=== PATIENT | female | born 1965 | race Caucasian/White ===

== ENCOUNTER 2016-03-30 17:41 | Observation (INO) | payer MEDICARE, MEDICAID ==
[~2016-03-30] VITALS: Ht 162.6 cm; Wt 74.4 kg
[~2016-03-30 17:41] MED LIST: ACYCLOVIR800 MG PO; ALPRAZOLAM1 MG PO; APAP/HYDROCODON1 TA9 PO; ATIVAN1 M1 PO; AUGMENTIN 875 M1 TAB PO; AUGMENTIN 875-1 EACH PO; AZO-STANDARD95 MG PO; BACTRIM DS 8001 TAB PO; BACTROBAN2% TP; BISOPROLOL 5MG T5 MG PO; CEFPODOXIME PR200 M1 PO; CIPRO 500MG TA500 MG PO; CIPROFLOXACIN500 MG PO; DILAUDID2 M1 PO; EFFEXOR XR 75MG75 MG PO; ELMIRON 100MG100 M1 OR; ELMIRON100 MG PO; FEMRING0.05 MG/24 VG; FEMRING0.1 MG/24 VG; FLAGYL500 M1 PO; FLEXERIL10 MG PO; GRISEOFULVIN500 MG PO; HYDROCODONE-APA1 TA1 PO; HYDROCODONE-APA1 TA2 PO; HYDROCODONE1 TABLET PO; IBUPROFEN400 MG PO; IBUPROFEN600 MG PO; IMITREX100 MG PO; KEFLEX 500MG.500 MG PO; LORTAB 5/500 501 TAB PO; LORTAB 500 MG-11 TAB PO; LORTAB 500 MG-71 TAB PO; LYRICA75 MG PO; MAGNESIUM OXID400 M1 PO; MECLIZINE25 MG PO; NAPROSYN 500MG500 MG PO; NEXIUM40 MG PO; NICODERM C21 MG/24 H TD; NICOTINE PATCH;21 MG TD; NITROGLYCERIN0.4 MG SL; NORCO 325 MG-101 TAB PO; OXYBUTYNIN CHLO10 MG PO; PERCOCET 10 MG1 EACH PO; PERCOCET 325 MG1 TA3 PO; PERCOCET 325 MG1 TA4 PO; PERCOCET 5/3251 EACH PO; PERCOCET1 TA1 PO; PERCOCET1 TAB PO; PHENERGAN 25MG.25 M1 PO; PHENERGAN 25MG.25 MG PR; PHENERGAN25 M3 PO; PREDNISONE 20MG20 MG PO; PYRIDIUM 200MG200 MG PO; TAMIFLU 75MG CA75 MG PO; TESSALON PERLE100 MG PO; TRAMADOL 50MG T50 M1 PO; ULTRACET 325 MG1 TAB PO; VENLAFAXINE H37.5 MG PO; VENLAFAXINE HY PO; VICODIN 5/500 T1 TAB PO; VOLTAREN75 MG PO; XANAX 0.5MG TA0.5 MG NG; XANAX 1MG TABLET1 MG PO; ZITHROMAX Z PA250 MG PO; ZITHROMAX Z-PA250 M1 PO; ZOFRAN ODT4 MG PO; ZOFRAN ODT8 MG PO; ZOFRAN4 MG PO; ZOLPIDEM 10MG T10 MG PO
[2016-03-30 17:51] VITALS: BP 103/66
[2016-03-30 18:13] LABS: URINE BILIRUBIN - DIPSTICK NEGATIVE (NEG); URINE BLOOD NEGATIVE (NEG)
--- NOTE | 2016-03-30 18:26 | Emergency Room Report ---
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 N Clinical Suspician of Infection? N Mental Status: 1 - Regular (Normal Baseline) Sepsis Risk:Possible Sepsis Risk Have you (or family members/close friends) recently traveled outside the [place]? N If Yes, where/when: Have you had exposure to infectious disease within the past month? N TB? Other? Specify: Source patient, RN notes reviewed, old records Exam Limitations no limitations Comment pt with persistant feeling of nausea and dec po intake with freq and lower abd pain with no rash and no diarrhea - pt has failed op treatment with abx and culture last time was nondiagnostic Cardiac Chest Pain Chest pain indicative of cardiac No Timing/Duration this evening Severity moderate ALLERGIES Coded Allergies: Tetanus Vaccines and Toxoid (TETANUS VACCINES & TOXOID) (Severe, 01/25/16) butorphanol (Severe, 01/25/16) tolterodine (Severe, 01/25/16) amitriptyline (Mild, 01/25/16) gabapentin (Mild, 01/25/16) prochlorperazine (Mild, 01/25/16) Home Medications Active Scripts PROMETHAZINE HCL (Phenergan 25MG Tab (Geq)) 25 MG PO Q6HP PRN N/V #20 TAB Ref 1 Prov: 12/30/15 OXYCODONE HCL/ACETAMINOPHEN (Percocet 7.5-325 MG Tablet) 1 TAB PO Q6HP PRN pain #12 TAB Prov: 01/25/16 Metronidazole (Flagyl) 500 MG PO TID #15 TAB Prov: 03/28/16 Cefpodoxime Proxetil 200 MG PO BID #20 TAB Prov: 03/26/16 Ondansetron (Zofran 4MG Odt) 4 MG PO Q8HP PRN NAUSEA AND VOMITING #10 ODT Prov: 03/26/16 Reported Medications VENLAFAXINE HCL (Venlafaxine Hydrochloride) 100 MG PO BID Esomeprazole Magnesium (Nexium 40MG Cap) 40 MG PO DAILY Sumatriptan Succinate (Imitrex) 100 MG PO PRN PRN HEADACHE Estradiol Acetate (Femring) 0.1 MG VG Q3M #1 Pregabalin (Lyrica 75MG) 75 MG PO QHS #30 ALPRAZOLAM (Alprazolam 1MG) 1 MG PO QID Zolpidem Tartrate (Zolpidem 10MG) 10 MG PO QHS #30 Pentosan Polysulfate Sodium (Elmiron 100MG Capsule) 100 MG OR TID #90 History Medical History General CAD? No Angina: Yes [place]: No Hypertension? No Hyperlipidemia? No CHF? No DVT? No PE? No COPD? No Asthma? No Anemia? No GERD? Yes Gastric ulcers? No GI Bleed? No Hernia? Yes Thyroid Problems? No Hypothyroidism? No CVA? No Seizures? No Diabetes? No Renal Insuffiency? No End Stage Renal Disease? No UTI? Yes Stones? Yes BPH? No GB Disease: No Nephritic Syndrome? No Asplenia? No Hepatitis? No Sickle Cell Disease? No Arthritis? No Migraines? Yes Cataracts? No Glaucoma? No MRSA? Yes HIV? No TB? No Anxiety? No Depression? No Cancer? No More? 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 Respiratory denies cough, denies shortness of breath, denies wheezing Cardiovascular denies chest pain, denies palpitations, denies syncope Gastrointestinal denies abdominal pain, denies diarrhea, denies vomiting Genitourinary denies: dysuria, frequency, hesitancy, hematuria. Musculoskeletal denies back pain, denies joint pain, denies joint swelling, denies neck pain Skin denies rash Psychiatric/Neurological denies headache, denies seizure Physical Exam Vital Signs Vital Signs Date Time Temp Pulse Resp B/P Pulse O2 O2 Flow FiO2 Ox Delivery Rate 03/30 1937 20 03/30 1918 83 20 118/55 100 03/30 1751 98.4 92 20 103/66 100 - WBC >12,000 or <4,000 or 10% bands? 2 or more SIRS Criteria Met? B/P:126/79 MAP: Creatinine >2.0? UA output<0.5ml/kg/hr for 2 hrs? Platelet count >100,000? Lactate >2.0mmol/1? INR >1.2 or PTT > than 60 sec? Evidence of Organ Dysfunction? Provider documented clinical suspician of infection? N Sepsis Criteria Count: 2 Sepsis Risk: Possible Sepsis Risk General Appearance no apparent distress Eye Exam - bilateral eye PERRL, bilateral eye EOMI Ear, Nose, Throat normal ENT inspection Neck supple Respiratory Status No: respiratory distress. Lung Sounds bilateral: lungs clear. Cardiovascular regular rate/rhythm, no murmur Peripheral Pulses Pulses normal Yes Gastrointestinal soft, no organomegaly, no pulsatile mass, no guarding, no rebound, tenderness Back bowel/bladder continent, strt leg raising(R)-ABNL Extremities normal inspection Strength 4 Upper Ext (L), 4 Upper Ext (R), 4 Lower Ext (L), 4 Lower Ext (R) Neurologic alert, fisher troll line II-XII nml as tested, no motor/sensory deficits Reflexes Reflexes normal Yes Mental status normal mood/affect Skin no rash cons.w/shingles Medical Decision Making LABS/Meds/Orders Pt receiving controlled substance in ED? No Results/Orders Laboratory Tests 03/30/161904: Lactic Acid 0.3 L 03/30/161904: Sodium 140, Potassium 3.7, Chloride 104, Carbon Dioxide 29, BUN 11, Creatinine 0.9, Estimated Creat Clear 82, Estimated GFR (MDRD) 66, Glucose 93, Calcium 9.0, Total Bilirubin 0.1 L, AST 22, ALT 37, Alkaline Phosphatase 90, Total Protein 7.5, Albumin 4.0, Globulin 3.5 H, Albumin/Globulin Ratio 1.1, Amylase 70, Lipase 109, WBC 3.8 L, RBC 4.49, Hgb 13.1, Hct 40.9, MCV 91.2, RDW 15.2, Plt Count 320, MPV 8.1, Gran % 56.3, Gran # 2.2, Lymphocytes % 31.4, Monocytes % 8.4 , Eosinophils % 2.7, Basophils % 1.3, Lymphocytes # 1.2, Monocytes # 0.3, Eosinophils # 0.1, Basophils # 0.1, PUBS MCHC 32.0, ESR Pending, MCH 29.2 03/30/161809: Urine Color YELLOW, Urine Appearance SL CLOUDY, Urine pH 8.0, Ur Specific [place] 1.015, Urine Protein NEGATIVE, Urine Ketones NEGATIVE, Urine Blood NEGATIVE, Urine Nitrate NEGATIVE, Urine Bilirubin NEGATIVE, Urine Urobilinogen 0.2, Ur Leukocyte Esterase 3+ H, Urine WBC 20-50, Ur Squamous Epith Cells 10-20 , Urine Bacteria 3+, Urine Glucose NEGATIVE Current Medication Orders Sig/Kayleigh Start time Last Medication Dose Route Stop Time Status Admin Sodium Chloride 1,000 ML .STK-MED ONE 03/30 1935 DC IV Levofloxacin/Dextrose 150 ML .STK-MED ONE 03/30 1934 DC IV Promethazine HCl 0 .STK-MED ONE 03/30 1934 DCr .ROUTE Sodium Chloride 25 ML .STK-MED ONE 03/30 1934 DC IV Gentamicin Sulfate 0 .STK-MED ONE 03/30 1933 DC .ROUTE Morphine Sulfate 0 .STK-MED ONE 03/30 1933 DCr .ROUTE Sodium Chloride 100 ML .STK-MED ONE 03/30 1933 DC IV Gentamicin Sulfate 400 MG ONCE ONE 03/30 1929 CKDr 03/30 Sodium Chloride 100 ML IV 03/30 Levofloxacin/Dextrose 150 ML ONCE ONE 03/30 1929 r 03/30 IV 03/30 Morphine Sulfate 6 MG ONCE ONE 03/30 1929 DCr 03/30 IV 03/30 Promethazine HCl 12.5 MG ONCE ONE 03/30 1929 DCr 03/30 IV 03/30 Sodium Chloride 1,000 ML .Q4H 03/30 1929 AC 03/30 IV 03/30 Sodium Chloride 10 ML PRN PRN 03/30 1929 AC IV 03/31 1928 Sodium Chloride 25 ML ONCE ONE 03/30 1929 DC 03/30 IV 03/30 Sodium Chloride 10 ML PRN PRN 03/30 190 AC IV 03/31 184 Orders Procedure Date/time Status DIET-NOTHING BY MOUTH 03/31 B Active IV SALINE LOCK 03/30 1847 Active CULTURE, BLOOD 03/30 1847 Active LIPASE 03/30 184 Complete LACTIC ACID 03/30 184 Complete SED RATE 03/30 184 Active COMPLETE METABOLIC PANEL 03/30 1847 Complete CBC WITH AUTO DIFF 03/30 1847 Active AMYLASE 03/30 1847 Complete CULTURE, URINE 03/[address] ABD/PELVIS REQ 03/30 180 Active URINALYSIS/COMPLETE 03/30 1805 Complete XRAY/CT/US XRAY/CT/US CT abdomen, pelvis CT interpretation by discussed w/radiologist Time results known: 1947 CT Results normal/NAD Departure Departure Time of Disposition 1946 Disposition Still a Patient Clinical Impression Primary Impression: UTI (urinary tract infection) Qualifiers: Urinary tract infection type: acute cystitis Hematuria presence: without hematuria Qualified Code: N30.00 - Acute cystitis without hematuria Condition STABLE Referrals Anne PRATT,Jone Lopez (Family) ED Critical Care Critical Care No at 1954
--- NOTE | 2016-03-30 18:37 | RADIOLOGY REPORT PS360 ---
CT ABD PELVIS W/O CONTRAST CLINICAL INDICATION: Abdominal pain, history of kidney stones UTI COMPARISON: 01/25/2016 TECHNIQUE: Axial images obtained with sagittal and coronal reformats. PROCEDURE: Oral Contrast: None IV Contrast: None . FINDINGS: Lung bases are clear. The liver, gallbladder, spleen, adrenal glands, and pancreas are unremarkable. There are nonobstructing right renal calculi. There is distention of the stomach with food debris.. Mild amount retained colonic feces. Unremarkable appendix. No evidence of diverticulitis, intestinal obstruction, or free air. No focal inflammatory change evident. No acute bony anomalies. IMPRESSION: 1. No acute finding. 2. Nonobstructing right renal calculi. 3. Distention of the stomach with undigested food debris
[2016-03-30 19:25] LABS: HEMOGLOBIN 13.1 g/dL (12.2-16.2); LYMPH # 1.2 K/mm3 (0.7-4.5); LYMPH % 31.4 % (10-50.0)
[2016-03-30 22:24] VITALS: BP 132/82
[2016-03-30 23:36] VITALS: BP 125/65
[2016-03-31 04:00] VITALS: BP 140/89
[2016-03-31 06:45] LABS: LYMPH # 1.1 K/mm3 (0.7-4.5)
[2016-03-31 06:57] LABS: HEMOGLOBIN 11.7 g/dL (12.2-16.2)
[2016-03-31 08:47] VITALS: BP 123/72
[2016-03-31 09:18] VITALS: BP 123/72
--- NOTE | 2016-03-31 09:21 | PHARMACY CLINIC NOTE ---
Patient Demographics Patient Demographics Admission date: 03/30/16 Date: 03/31/16 Time: 0921 Allergies Coded Allergies: Tetanus Vaccines and Toxoid (TETANUS VACCINES & TOXOID) (Severe, 01/25/16) butorphanol (Severe, 01/25/16) tolterodine (Severe, 01/25/16) amitriptyline (Mild, 01/25/16) gabapentin (Mild, 01/25/16) prochlorperazine (Mild, 01/25/16) HEIGHT- FT: 5 IN: 4.00 K.447 VTE General Information Labs: Laboratory Tests 03/31 03/30 0633 1905 Hematology Hgb (12.2 - 16.2 g/dL) 11.7 L 13.1 Hct (37.0 - 47.0 %) 36.5 L 40.9 Plt Count (142 - 424 K/mm3) 260 320 Disclaimer The following section includes nursing documentation that has been pulled in for pharmacy review. Patient's VTE score: 2 Patient's VTE Risk: VERY LOW RISK Clinical trial participant? No VTE prophylaxis [id number] VTE prophylaxis ordered? Yes Type of prophylaxis/treatment: NICOLE at 0921
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
--- NOTE | 2016-03-31 13:26 | CONSULT NOTE ---
Pharmacokinetic Consult Date of consult: 03/31/16 Time of consult: 1320 Referring provider: DR. COTTO Reason for consult: GENTAMICIN DOSING AND LEVELS Allergies: Coded Allergies: Tetanus Vaccines and Toxoid (TETANUS VACCINES & TOXOID) (Severe, 01/25/16) butorphanol (Severe, 01/25/16) tolterodine (Severe, 01/25/16) amitriptyline (Mild, 01/25/16) gabapentin (Mild, 01/25/16) prochlorperazine (Mild, 01/25/16) Home Medications: Active Scripts PROMETHAZINE HCL (Phenergan 25MG Tab (Geq)) 25 MG PO Q6HP PRN N/V #20 TAB Ref 1 Prov: 12/30/15 OXYCODONE HCL/ACETAMINOPHEN (Percocet 7.5-325 MG Tablet) 1 TAB PO Q6HP PRN pain #12 TAB Prov: 01/25/16 Metronidazole (Flagyl) 500 MG PO TID #15 TAB Prov: 03/28/16 Cefpodoxime Proxetil 200 MG PO BID #20 TAB Prov: 03/26/16 Ondansetron (Zofran 4MG Odt) 4 MG PO Q8HP PRN NAUSEA AND VOMITING #10 ODT Prov: 03/26/16 Reported Medications VENLAFAXINE HCL (Venlafaxine Hydrochloride) 100 MG PO BID Esomeprazole Magnesium (Nexium 40MG Cap) 40 MG PO DAILY Sumatriptan Succinate (Imitrex) 100 MG PO PRN PRN HEADACHE Estradiol Acetate (Femring) 0.1 MG VG Q3M #1 Pregabalin (Lyrica 75MG) 75 MG PO QHS #30 ALPRAZOLAM (Alprazolam 1MG) 1 MG PO QID Zolpidem Tartrate (Zolpidem 10MG) 10 MG PO QHS #30 Pentosan Polysulfate Sodium (Elmiron 100MG Capsule) 100 MG OR TID #90 Height (feet): 5 Height (inches): 4.00 Medical History: CAD? No Angina: Yes DC: No Hypertension? No Hyperlipidemia? No CHF? No DVT? No PE? No COPD? No Asthma? No Anemia? No GERD? Yes Gastric ulcers? No GI Bleed? No Hernia? Yes Thyroid Problems? No Hypothyroidism? No CVA? No Seizures? No Diabetes? No Renal Insuffiency? No UTI? Yes Stones? Yes BPH? No GB Disease: No Nephritic Syndrome? No Asplenia? No Hepatitis? No Sickle Cell Disease? No Arthritis? No Migraines? Yes Cataracts? No Glaucoma? No MRSA? Yes HIV? No TB? No Anxiety? No Depression? No Cancer? No More? No Labs: Laboratory Tests 03/31/16 1000: Random Gentamicin 0.2 L 03/31/16 0633: Sodium 140, Potassium 4.0, Chloride 108 H, Carbon Dioxide 25, BUN 7, Creatinine 0.9, Estimated Creat Clear 88, Estimated GFR (MDRD) 66, Glucose 92, Calcium 8.6, WBC 3.9 L, RBC 3.97 L, Hgb 11.7 L, Hct 36.5 L, MCV 91.9, RDW 15.3, Plt Count 260, MPV 8.4, Gran % 60.1, Gran # 2.3, Lymphocytes % 29.0, Monocytes % 7.5, Eosinophils % 2.5, Basophils % 0.8, Lymphocytes # 1.1, Monocytes # 0.3, Eosinophils # 0.1, Basophils # 0.0, PUBS MCHC 32.0, MCH 29.4 03/31/16 0105: Random Gentamicin 1.5 L 03/30/161904: Lactic Acid 0.3 L 03/30/161904: Sodium 140, Potassium 3.7, Chloride 104, Carbon Dioxide 29, BUN 11, Creatinine 0.9, Estimated Creat Clear 82, Estimated GFR (MDRD) 66, Glucose 93, Calcium 9.0, Total Bilirubin 0.1 L, AST 22, ALT 37, Alkaline Phosphatase 90, Total Protein 7.5, Albumin 4.0, Globulin 3.5 H, Albumin/Globulin Ratio 1.1, Amylase 70, Lipase 109, WBC 3.8 L, RBC 4.49, Hgb 13.1, Hct 40.9, MCV 91.2, RDW 15.2, Plt Count 320, MPV 8.1, Gran % 56.3, Gran # 2.2, Lymphocytes % 31.4, Monocytes % 8.4 , Eosinophils % 2.7, Basophils % 1.3, Lymphocytes # 1.2, Monocytes # 0.3, Eosinophils # 0.1, Basophils # 0.1, PUBS MCHC 32.0, ESR 16, MCH 29.2 03/30/161809: Urine Color YELLOW, Urine Appearance SL CLOUDY, Urine pH 8.0, Ur Specific [place] 1.015, Urine Protein NEGATIVE, Urine Ketones NEGATIVE, Urine Blood NEGATIVE, Urine Nitrate NEGATIVE, Urine Bilirubin NEGATIVE, Urine Urobilinogen 0.2, Ur Leukocyte Esterase 3+ H, Urine WBC 20-50, Ur Squamous Epith Cells 10-20 , Urine Bacteria 3+, Urine Glucose NEGATIVE Microbiology 03/30 1904 BLOOD: Anaerobic Blood Culture - RECD 03/30 1904 BLOOD: Aerobic Blood Culture - RECD 03/30 1809 URINE CC: Urine Culture - RES Problem List: 1. UTI (urinary tract infection) Plan: BASED ON PATIENT FACTORS, RECOMMENDED PATIENT GET GENTAMICIN 400 MG IV ONCE LAST NIGHT. UNFORTUNATELY, PATIENT ONLY RECEIVED 80 MG. RECOMMEND PATIENT GET GENTAMICIN 440 MG (7 MG/KG/DBW) IV Q24H STARTING TODAY. WILL ORDER 4 AND 12-HOUR POST INFUSION LEVELS. PHARMACY WILL FOLLOW DAILY AND ADJUST APPROPRIATE. at 132
[2016-03-31 16:43] VITALS: BP 131/79
[2016-03-31 19:37] VITALS: BP 127/60
[2016-03-31 19:45] VITALS: BP 127/60
[2016-04-01 04:17] VITALS: BP 129/73
[2016-04-01 07:02] LABS: HEMOGLOBIN 11.7 g/dL (12.2-16.2); LYMPH # 1.4 K/mm3 (0.7-4.5); LYMPH % 34.6 % (10-50.0)
[2016-04-01 07:38] VITALS: BP 124/77
[2016-04-01 08:40] LABS: HIV Screen 4th Generation wRfx Non Reactive (Non Reactive); Rapid Plasma Reagin, Quant Non Reactive (NonRea<1:1)
[2016-04-01 09:23] VITALS: BP 124/77
--- NOTE | 2016-04-01 09:23 | ACUTE CARE PROGRESS NOTE (QUA) ---
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 Trichomonas vaginitis 2. Acute flank pain 3. Pelvic pain Patient condition Stable Plan: order additional tests This inpt stay is expected to cross 2 MNs from start of care Yes Comments: will redo urine culture and ua and awaiting pelvic u/s and test results at 0924
--- NOTE | 2016-04-01 09:23 | ACUTE CARE PROGRESS NOTE (QUA) ---
Progress Notes Subjective Date 04/01/16 Time 0919 Note doing better still with pelvic pain Patient/family reports: pain Nursing reports: no complaints Objective Findings Last VS-Temp:98.1 B/P:124/77 Pulse:76 Resp:18 SaO2:100 ROOM AIR Last weight lbs:164 oz:2 K.447 Method:Bed Scales Exam General appearance: alert, awake Eyes: PERRLA ENT: dry mucous membranes Neck: no JVD Cardiovascular: regular rate & rhythm Respiratory: no respiratory distress ABD: soft, lower abd pain Genitourinary: no hematuria Extremities: moves all Musculoskeletal: equal muscle strength Skin: dry Neuro: alert, hop strainer II-XII nml as tested Reviewed: allergies, medications, vital signs, lab results Assessment/Plan Problem List 1. Trichomonas vaginitis 2. Acute flank pain 3. Pelvic pain Patient condition Stable Plan: order additional tests This inpt stay is expected to cross 2 MNs from start of care Yes Comments: will redo urine culture and ua and awaiting pelvic u/s and test results at 0979
--- NOTE | 2016-04-01 09:42 | RADIOLOGY REPORT PS360 ---
US PELVIS-TRANSVAGINAL ONLY ORDERING PHYSICIAN : Jone Rodríguez MD PATIENT AGE: 50 years GENDER: Female INDICATION: VAGINAL DISCHARGE UTI pelvic pain TECHNIQUE: Transvaginal pelvic ultrasound COMPARISON: None] listed FINDINGS Uterus in both ovaries surgically absent x 14 years. . Vaginal cuff observed unremarkable on submitted images.. Only bowel is seen at midline. IMPRESSION: Uterus and ovaries are surgically removed No additional significant findings the pelvis. Only mild loops encountered. No masses identified
[2016-04-01 09:59] LABS: URINE BILIRUBIN - DIPSTICK NEGATIVE (NEG); URINE BLOOD TRACE-INTACT (NEG)
--- NOTE | 2016-04-01 11:06 | CONSULT NOTE ---
Pharmacokinetic Consult Date of consult: 04/01/16 Time of consult: 1103 Referring provider: DR. COTTO Reason for consult: GENTAMICIN LEVELS Allergies: Coded Allergies: Tetanus Vaccines and Toxoid (TETANUS VACCINES & TOXOID) (Severe, 01/25/16) butorphanol (Severe, 01/25/16) tolterodine (Severe, 01/25/16) amitriptyline (Mild, 01/25/16) gabapentin (Mild, 01/25/16) prochlorperazine (Mild, 01/25/16) Home Medications: Active Scripts PROMETHAZINE HCL (Phenergan 25MG Tab (Geq)) 25 MG PO Q6HP PRN NAUSEA/VOMITING #20 TAB Ref 1 Prov: 12/30/15 OXYCODONE HCL/ACETAMINOPHEN (Percocet 7.5-325 MG Tablet) 1 TAB PO Q6HP PRN PAIN #12 TAB Prov: 01/25/16 Metronidazole (Flagyl) 500 MG PO TID #15 TAB Prov: 03/28/16 Cefpodoxime Proxetil 200 MG PO BID #20 TAB Prov: 03/26/16 Ondansetron (Zofran 4MG Odt) 4 MG PO Q8HP PRN NAUSEA AND VOMITING #10 ODT Prov: 03/26/16 Reported Medications Estradiol Acetate (Femring) 0.1 MG VG Q3M #1 MG VENLAFAXINE HCL (Venlafaxine Hydrochloride) 100 MG PO BID Esomeprazole Magnesium (Nexium 40MG Cap) 40 MG PO DAILY Sumatriptan Succinate (Imitrex) 100 MG PO PRN PRN HEADACHE Pregabalin (Lyrica 75MG) 75 MG PO QHS #30 ALPRAZOLAM (Alprazolam 1MG) 1 MG PO QID Zolpidem Tartrate (Zolpidem 10MG) 10 MG PO QHS #30 Pentosan Polysulfate Sodium (Elmiron 100MG Capsule) 100 MG OR TID #90 Height (feet): 5 Height (inches): 4.00 Medical History: CAD? No Angina: Yes VT: No Hypertension? No Hyperlipidemia? No CHF? No DVT? No PE? No COPD? No Asthma? No Anemia? No GERD? Yes Gastric ulcers? No GI Bleed? No Hernia? Yes Thyroid Problems? No Hypothyroidism? No CVA? No Seizures? No Diabetes? No Renal Insuffiency? No UTI? Yes Stones? Yes BPH? No GB Disease: No Nephritic Syndrome? No Asplenia? No Hepatitis? No Sickle Cell Disease? No Arthritis? No Migraines? Yes Cataracts? No Glaucoma? No MRSA? Yes HIV? No TB? No Anxiety? No Depression? No Cancer? No More? No Labs: Laboratory Tests 04/01/16 0932: Urine Color YELLOW, Urine Appearance CLEAR, Urine pH 5.5, Ur Specific [place] 1.020, Urine Protein NEGATIVE, Urine Ketones NEGATIVE, Urine Blood TRACE-INTACT, Urine Nitrate NEGATIVE, Urine Bilirubin NEGATIVE, Urine Urobilinogen 0.2, Ur Leukocyte Esterase NEGATIVE, Urine RBC OCC, Urine WBC 3-5, Ur Squamous Epith Cells 3-5, Urine Bacteria TRACE, Urine Glucose NEGATIVE 04/01/16 0640: Sodium 141, Potassium 4.2, Chloride 107, Carbon Dioxide 28, BUN 7, Creatinine 1.0, Estimated Creat Clear 79, Estimated GFR (MDRD) 59, Glucose 89, Calcium 8.8, Total Bilirubin 0.2, AST 19, ALT 35, Alkaline Phosphatase 62, Total Protein 6.2 L, Albumin 3.3 L, Globulin 2.9, Albumin/Globulin Ratio 1.1, WBC 3.9 L, RBC 4.11 L, Hgb 11.7 L, Hct 37.2, MCV 90.6, RDW 14.9, Plt Count 245, MPV 8.3, Gran % 55.0, Gran # 2.2, Lymphocytes % 34.6, Monocytes % 6.4, Eosinophils % 3.3, Basophils % 0.7, Lymphocytes # 1.4, Monocytes # 0.3, Eosinophils # 0.1, Basophils # 0.0, PUBS MCHC 31.5 L, MCH 28.5 04/01/16 0315: Random Gentamicin 1.9 L 03/31/16 1915: Random Gentamicin 10.5 H Problem List: 1. UTI (urinary tract infection) Plan: 4-HOUR POST INFUSION: 10.5 MCG/ML CALCULATED PEAK: 19.95 MCG/ML 12-HOUR POST INFUISION: 1.9 MCG/ML CALCULATED TROUGH: 0.15 MCG/ML BASED ON GENTAMICIN LEVELS AND PATIENT FACTORS, RECOMMEND DECREASING DOSE TO GENTAMICIN 380 MG (6 MG/KG/DBW) IV Q24H TO REACH A PEAK CLOSER TO 15.0 MCG/ML. PHARMACY WILL CONTINUE TO MONITOR DAILY AND ADJUST APPROPRIATE. at 2816
[2016-04-01 15:58] VITALS: BP 117/65
[2016-04-01 19:41] VITALS: BP 112/66
[2016-04-01 19:51] VITALS: BP 112/66
[2016-04-02 03:58] VITALS: BP 147/92
[2016-04-02 07:45] VITALS: BP 108/58
[2016-04-02 14:35] LABS: HBsAg Screen Negative (Negative); Hep A Ab, IgM Negative (Negative); Hep B Core Ab, IgM Negative (Negative); Hep C Virus Ab <0.1 (0.0-0.9)
--- NOTE | 2016-04-02 15:42 | ACUTE CARE PROGRESS NOTE (QUA) ---
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 Trichomonas vaginitis 2. Acute flank pain 3. Pelvic pain 4. Abdominal pain Patient condition Improving Plan: continue current care This inpt stay is expected to cross 2 MNs from start of care Yes Comments: will reeval in am at 1549
--- NOTE | 2016-04-02 15:42 | ACUTE CARE PROGRESS NOTE (QUA) ---
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 Trichomonas vaginitis 2. Acute flank pain 3. Pelvic pain 4. Abdominal pain Patient condition Improving Plan: continue current care This inpt stay is expected to cross 2 MNs from start of care Yes Comments: will reeval in am at 154
[2016-04-02 16:30] VITALS: BP 126/70
[2016-04-02 20:00] VITALS: BP 116/73
[2016-04-02 20:50] VITALS: BP 116/73
[2016-04-03 04:29] VITALS: BP 127/77
[2016-04-03 07:35] VITALS: BP 123/67
[2016-04-03 08:51] VITALS: BP 123/67
[2016-04-03 12:08] VITALS: BP 131/72
--- NOTE | 2016-04-03 12:24 | RADIOLOGY REPORT PS360 ---
US RUQ-(ABD LTD)1ORGAN/QUAD/FU ORDERING PHYSICIAN : Jone Rodríguez MD PATIENT AGE: 50 years GENDER: Female INDICATION: upper quad pain Right upper quadrant pain TECHNIQUE: Ultrasound right upper quadrant COMPARISON: CT abdomen pelvis March FINDINGS Pancreas. Unremarkable Head body and medial tail satisfactory Liver. No focal lesion. No bili ductal dilatation. Mild diffuse fatty changes Gallbladder. Moderately distended measuring up to 9.7 cm in length. No gallstones evident. No wall thickening or inflammation. Gallbladder wall upper normal thickness. Only trace sludge and debris are unimpressive and not of significance. Gallbladder. Normal size on recent CT Common duct is normal diameter measuring up to 4 mm at hilum of liver. Right kidney measures 10.2 cm length with no hydronephrosis. No mass lesion. There are some echogenic foci at the lower pole of right kidney which could reflect tiny echogenic stones is noted and better delineated on 03/30/2016 CT abdomen IMPRESSION : 1. Gallbladder. No gallstones. Generous upper normal size gallbladder today measuring 9.7 cm length. No inflammation. No wall thickening 2. Liver. Mild diffuse fatty changes. 3. Right kidney.. No hydronephrosis. There are 2 tiny echogenic foci lower pole may correlate with the tiny calculi seen on recent CT
--- NOTE | 2016-04-03 12:29 | ACUTE CARE PROGRESS NOTE (QUA) ---
Progress Notes Subjective Date 04/03/16 Time 0025 Patient/family reports: feeling better, pain Nursing reports: alert Objective Findings Microbiology 04/02 1513 URINE CC: Urine Culture - RES Vital Signs Date Time Temp Pulse Resp B/P Pulse O2 O2 Flow FiO2 Ox Delivery Rate 04/03 1208 98.3 76 20 131/72 94 ROOM AIR 04/03 1119 20 04/03 0922 20 04/03 0851 98.0 76 20 123/67 94 04/03 0735 98.0 76 20 123/67 94 ROOM AIR 04/03 0509 18 04/03 0429 97.9 87 18 127/77 97 ROOM AIR 04/03 0105 18 04/03 0018 18 04/02 205 18 04/02 205 98.4 74 18 116/73 97 04/02 2000 98.4 74 18 116/73 97 ROOM AIR 04/02 1813 18 04/02 1637 18 04/02 1630 98.0 98 18 126/70 98 ROOM AIR 04/02 1243 18 Current Medications Miscellaneous Information 1 EACH ONCE ONE * Oxycodone/Acetaminophen 0 .STK-MED ONE PO (DCr) Levofloxacin 500 MG 1100 PO Promethazine HCl 0 .STK-MED ONE .ROUTE (DCr) Hydromorphone HCl 0 .STK-MED ONE .ROUTE (DCr) Sodium Chloride 25 ML .STK-MED ONE IV (DC) Ondansetron HCl 0 .STK-MED ONE .ROUTE (DC) Alprazolam 0 .STK-MED ONE .ROUTE (DC) Sodium Chloride 25 ML .STK-MED ONE IV (DC) Promethazine HCl 0 .STK-MED ONE .ROUTE (DCr) Hydromorphone HCl 0 .STK-MED ONE .ROUTE (DCr) Promethazine HCl 0 .STK-MED ONE .ROUTE (DCr) Sodium Chloride 25 ML .STK-MED ONE IV (DC) Hydromorphone HCl 0 .STK-MED ONE .ROUTE (DCr) Oxycodone/Acetaminophen 0 .STK-MED ONE PO (DCr) Ondansetron HCl 0 .STK-MED ONE .ROUTE (DC) Acetaminophen 0 .STK-MED ONE PO (DC) Zolpidem Tartrate 0 .STK-MED ONE PO (DC) Alprazolam 0 .STK-MED ONE .ROUTE (DC) Sodium Chloride 25 ML .STK-MED ONE IV (DC) Promethazine HCl 0 .STK-MED ONE .ROUTE (DCr) Hydromorphone HCl 0 .STK-MED ONE .ROUTE (DCr) Oxycodone/Acetaminophen 0 .STK-MED ONE PO (DCr) Alprazolam 0 .STK-MED ONE .ROUTE (DC) Hydromorphone HCl 0 .STK-MED ONE .ROUTE (DCr) Promethazine HCl 0 .STK-MED ONE .ROUTE (DCr) Sodium Chloride 25 ML .STK-MED ONE IV (DC) Alprazolam 0 .STK-MED ONE .ROUTE (DC) Promethazine HCl 0 .STK-MED ONE .ROUTE (DCr) Hydromorphone HCl 0 .STK-MED ONE .ROUTE (DCr) Sodium Chloride 25 ML .STK-MED ONE IV (DC) Oxycodone/Acetaminophen 1 EACH Q6HP PRN PO (r) Gentamicin Sulfate 380 MG Q24H IV (CKD) Sodium Chloride 100 ML Metronidazole 500 MG TID PO Pantoprazole Sodium 40 MG QHS PO Venlafaxine HCl 75 MG QHS PO Levofloxacin/Dextrose 100 ML 1700 IV (DC) Loratadine 10 MG QAM PO Alprazolam 1 MG QID PO Zolpidem Tartrate 10 MG QHS PO Acetaminophen 650 MG Q4HP PRN PO Hydromorphone HCl 1 MG Q4HP PRN IV Ondansetron HCl 4 MG Q6HP PRN IV Promethazine HCl 25 MG Q4HP PRN IV Sodium Chloride 1,000 ML .Q10H IV Sodium Chloride 25 ML PRN PRN IV Last VS-Temp:98.3 B/P:131/72 Pulse:76 Resp:20 SaO2:94 ROOM AIR Last weight lbs:164 oz:2 K.447 Method:Bed Scales Exam General appearance: normal appearance, alert, no acute distress Eyes: normal exam, PERRLA ENT: normal exam Neck: normal inspection, full range of motion Cardiovascular: normal exam, regular rate & rhythm Respiratory: normal exam, chest non-tender, good air movement, no respiratory distress ABD: normal exam, normal bowel sounds, soft Genitourinary: normal voiding & quantity Extremities: normal exam, warm Musculoskeletal: normal exam Skin: normal exam, intact, normal color Neuro: normal exam, alert, intact, oriented Reviewed: allergies, medications, vital signs, lab results Assessment/Plan Problem List 1. Trichomonas vaginitis 2. Acute flank pain 3. Pelvic pain 4. Abdominal pain Patient condition Stable Plan: order additional tests This inpt stay is expected to cross 2 MNs from start of care Yes Comments: rounded with pat pt c/o rt upper quuad pain - gallbladder us today Antibiotic Stewardship (2) Current Culture Results Microbiology 04/02 1513 URINE CC: Urine Culture - RES 03/31 1000 CERVIX: Wet Prep - CAN Cancelled: DUPLICATE ORDER 03/31 0940 VAGINAL: Wet Prep - COMP 03/30 190 BLOOD: Anaerobic Blood Culture - RES 03/30 190 BLOOD: Aerobic Blood Culture - RES Infxn that will respond? Yes Right drug,dose,and route? Yes More targeted antbx? No How long atbx needed? 7 at 1224
[2016-04-03] MEDS ORDERED: LEVAQUIN500 MG PO (12:51)
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
[2016-04-03 14:51] VITALS: BP 131/72
[2016-04-04 10:37] LABS: Neisseria gonorrhoeae, NAA Negative (Negative)
== END 2016-04-03 14:45 | disposition home or self-care (01) ==
LOC: ER 17:41 → 2ND 19:43 → ER 19:43 → 2ND 21:12
PROVIDERS: Emergency Medicine
DX: N39.0 Urinary tract infection, site not specified (principal); A59.01 Trichomonal vulvovaginitis; R10.9 Unspecified abdominal pain; Z23 Encounter for immunization; Z72.89 Other problems related to lifestyle; Z11.4 Encounter for screening for human immunodeficiency virus [HIV]; R10.2 Pelvic and perineal pain
CPT/HCPCS: G0009; G0378; G0432; J2405

== ENCOUNTER → 2016-08-02 | Outpatient (CLI) | payer MEDICARE, MEDICAID ==
[~2016-08-02] MED LIST changes: +ALPRAZOLAM0.5 M3 PO; +ALPRAZOLAM0.5 MG PO; -ALPRAZOLAM1 MG PO; +ARTHRITIS PAIN650 M1 PO; +CYCLOBENZAPRINE10 M1 PO; -ELMIRON 100MG100 M1 OR; +ELMIRON 100MG100 M1 PO; +HYDROCODONE BI118 ML PO; +LEVAQUIN500 MG PO; +LORTAB 7.5/3251 TAB PO; +VENLAFAXINE HCL50 MG PO; +ZOFRAN 8MG TABLE8 MG PO; +ZYRTEC10 M2 PO
[2016-08-02 16:00] LABS: AMPHETAMINES/METAMPHETAMINES NEGATIVE ng/mL (<1000)
== END ==
LOC: LAB 13:48
PROVIDERS: Emergency Medicine
DX: Z79.899 Other long term (current) drug therapy (principal)

== ENCOUNTER → 2016-10-27 | Outpatient (CLI) | payer MEDICARE ==
[~2016-10-27] MED LIST changes: +CIPROFLOXACIN500 M2 PO; +PYRIDIUM200 M2 PO; +TRANSDERM TD
[2016-10-27 14:32] LABS: AMPHETAMINES/METAMPHETAMINES NEGATIVE ng/mL (<1000)
== END ==
LOC: LAB 13:44
PROVIDERS: Emergency Medicine
DX: Z79.899 Other long term (current) drug therapy (principal)

== ENCOUNTER → 2016-11-29 | Outpatient (CLI) | payer MEDICARE, MEDICAID ==
--- NOTE | 2016-12-04 07:21 | RADIOLOGY REPORT PS360 ---
MRI-UP EXT ANY JNT W/O-RT MRI RIGHT SHOULDER Right shoulder pain 1 month weakness limited range of motion HISTORY: RIGHT SHOULER PAIN Patient Age: 51 years: Female Ordering Physician: BEV MAURER MD TECHNIQUE: Multiplanar multisequence imaging 1.5 TeslaTMRI COMPARISON : 11/23/2016 right shoulder 3 views FINDINGS . Slight increased fluid seen along the biceps tendon sheath, inferior to the bicipital groove. The biceps tendon itself appears intact with no definitive nor prominent tear but the increased signal here is suspect for potential tendinopathy. I do not see a prominent underlying joint effusion to yield this fluid along the biceps tendon sheath. Only borderline-qqant increased joint fluid noted at subcoracoid recess Supraspinatus.q slight increased signal adjacent to its insertion and more medially along its inferior aspect these areas of slight increased signal but are not fluid signal on STIR and thus I tend to favor they're reflect tendinopathy. Less likely undersurface partial tearq . Only slight narrowing of subacromial space measures just over 6 mm beneath the tip of of a moderately large acromion. May contribute to impingement symptoms if present as may be mild AC joint hypertrophy noted below. Mild AC joint hypertrophy joint which yields mild impingement upon the supraspinatus at medial outlet. Subscapularis tendon appears intact. Infraspinatus tendon appears intact. . . Only scant if fluid at subdeltoid subacromial bursa. Nonspecific. Although this can be seen with even a pinhole full-thickness rotator cuff tear it can also be seen in segment of bursitis here. Osseous glenoid intact. There is a Small posterior glenoid labrum which may reflect degeneration. Cannot exclude partial tear.. Anterior inferior labrum intact and best visualized.. [id number] submental foramen at mid aspect anterior labrum I believe accounts for the appearance here. IMPRESSION: 1. Increased fluid along the biceps tendon sheath of could reflect biceps tendinopathy 2. Supraspinatus tendinopathy. Most evident along inferior aspect and adjacent to the attachment. . Possible minor partial tear, mainly involving undersurface.. 3. No definitive full-thickness rotator cuff tear evident... Certainly no prominent RCT with tendon retraction However there is Trace fluid subdeltoid subacromial bursa which could reflect a tiny pinhole tear versus mild bursitis here. 4. Small posterior glenoid labrum. May reflect degeneration or potentially prior injury here
== END ==
LOC: RAD 14:29
DX: M25.511 Pain in right shoulder (principal)

== ENCOUNTER → 2016-12-20 | Outpatient (CLI) | payer MEDICARE, MEDICAID ==
[2016-12-20 15:49] LABS: AMPHETAMINES/METAMPHETAMINES NEGATIVE ng/mL (<1000)
== END ==
LOC: LAB 14:45
PROVIDERS: Emergency Medicine
DX: Z79.899 Other long term (current) drug therapy (principal)

== ENCOUNTER 2017-01-19 20:31 | Observation (INO) | payer MEDICARE, MEDICAID ==
[~2017-01-19] VITALS: Ht 162.6 cm; Wt 78.2 kg
[~2017-01-19 20:31] MED LIST changes: -IBUPROFEN800 MG PO; -NORCO 325 MG-51 TAB PO
[2017-01-19 20:42] VITALS: BP 136/85
--- OUTSIDE RECORDS SUMMARY | 2017-01-19 20:50 | External Medical Summary Rpt | CCD ---
Author Author [employer] Organization [employer] Address Unknown Phone Unavailable Purpose Continuity of Care Document - through 2016
--- OUTSIDE RECORDS SUMMARY | 2017-01-19 20:50 | External Medical Summary Rpt | CCD ---
Author Author , ASAD KAMARA Address Unknown Phone [email or web address] Immunization Name Date Rout CVX Reac Dose Comm Prov Is Faci e tion ent ider Refu lity Give sed n Infl 09-1 Intr 150 0.5 Hist [facility] No [facility] uenz 5-20 amus mL oric ART5 ART5 a 17 cula al 91 91 Quad r Info Inj rmat ion - Sour ce Unsp ecif ied Infl 09-0 Intr 150 0.5 Hist [facility] No [facility] uenz 8-20 amus mL oric ART5 ART5 a 16 cula al 91 91 Quad r Info Inj rmat ion - Sour ce Unsp ecif ied
--- OUTSIDE RECORDS SUMMARY | 2017-01-19 20:50 | External Medical Summary Rpt | CCD ---
Author Author , ASAD Organization ASAD Address Unknown Phone [email or web address] Providers Care Records Management Coordinator Name Role Phone Olvin Austin MD, Unavailable Unavailable Olvin Jose MD, Unavailable Unavailable Socorro Jose MD Purpose Continuity of Care Document - 12-20-2012 through 2016 Problems Code Diagnosis DOS Provider Status 487.1 487.1 FLU W 03-02-2013 [place] RESP [facility] V14.8 V14.8 03-02-2013 [place] HX-DRUG [facility] ALLERGY [facility] Hospital 053.9 053.9 02-14-2013 [place] HERPES [facility] Hospital 079.99 079.99 02-14-2013 [place] VIRAL [facility] INFECTION Hospital NOS 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 Tetanus Toxoid THROAT SWELLS/HIVES Severe Tolterodine QUIROZ, LOSS OF VISION Severe Medications Na ND Rx Da Fi Fi Am Da Di Ph RX Ph St me C No te ll ll ou ys ag ar # ys at rm s nt no ma ic us Or Da si cy ia de te s n re d ON 00 12 0 No DA 64 -2 NS 16 2- Lo ET 08 20 ng RO 02 13 er N 5 HC Ac L ti 4 ve MG /2 ML AL TY 50 12 0 No LE 58 -2 NO 00 2- Lo L 45 20 ng EX 10 13 er -S 3 TR Ac ti 50 ve [address] ET SO 00 12 0 No DI 40 -0 UM 97 6- Lo 98 20 ng CH 30 13 er LO 9 RI Ac DE ti ve 0. 9% SO ROSMERY TI ON Sa 63 12 0 No li 80 -0 ne 70 6- Lo 10 20 ng Fl 07 13 er us 5 h Ac 10 ti ML ve Sy ri ng e AP 00 12 0 No AP 40 -0 /H 60 6- Lo YD 36 20 ng RO 56 13 er CO 2 DO Ac NE ti ve 32 5 MG -5 MG TX 00 12 0 No OM 64 -0 ET 11 6- Lo QUIROZ 49 20 ng ZI 53 13 er NE 5 Ac 25 ti ve MG /M L AM PU L AC 00 12 0 No YC 09 -0 LO 38 6- Lo 94 20 ng R 30 13 er 40 1 0 Ac MG ti ve TA BL ET TX 00 12 0 No ED 05 -0 NI 40 6- Lo SO 01 20 ng NE 82 13 er 0 20 Ac ti MG ve TA BL ET TX 51 12 0 No OM 07 -0 ET 90 6- Lo QUIROZ 89 20 ng ZI 52 13 er NE 0H Ac 25 ti MG ve TA BL ET TA KE AC 00 12 0 No ET 40 -0 AM 60 1- Lo IN 48 20 ng OP 46 13 er HE 2 N- Ac CO ti D ve #3 TA BL ET BU 00 10 0 No TA 60 -1 LB 32 1- Lo -A 54 20 ng CE 42 13 er TA 1 WV Ac N- ti CA ve FF 50 -3 25 -4 0 Vital Signs 03-02-2013 10:00 Name Value Interpretat Reference Comment ion Range Body 99.7 [degF] Temperature BP 69 mm[Hg] Diastolic BP Systolic 112 mm[Hg] Heart 95 /min Rate/Pulse O2% 98 % Respiratory 20 /min Rate 03-02-2013 09:37 Name Value Interpretat Reference Comment ion Range Body 100.1 Temperature [degF] BP 76 mm[Hg] Diastolic BP Systolic 120 mm[Hg] Heart 111 /min Rate/Pulse O2% 99 % Respiratory 20 /min Rate 02-14-2013 22:17 Name Value Interpretat Reference Comment ion Range BP 93 mm[Hg] Diastolic BP Systolic 153 mm[Hg] Heart 78 /min Rate/Pulse O2% 99 % Respiratory 20 /min Rate 02-14-2013 20:54 Name Value Interpretat Reference Comment ion Range BP 106 mm[Hg] Diastolic BP Systolic 159 mm[Hg] Heart 94 /min Rate/Pulse O2% 99 % Respiratory 20 /min Rate 02-09-2013 10:25 Name Value Interpretat Reference Comment ion Range BP 86 mm[Hg] Diastolic BP Systolic 130 mm[Hg] Heart 86 /min Rate/Pulse O2% 98 % Respiratory 20 /min Rate 12-20-2012 13:29 Name Value Interpretat Reference Comment ion Range Body 98.1 [degF] Temperature BP 85 mm[Hg] Diastolic BP Systolic 128 mm[Hg] Heart 69 /min Rate/Pulse O2% 100 % Respiratory 20 /min Rate 12-20-2012 13:15 Name Value Interpretat Reference Comment ion Range BP 81 mm[Hg] Diastolic BP Systolic 112 mm[Hg] Heart 63 /min Rate/Pulse O2% 100 % Respiratory 20 /min Rate Results Labs Lab Lab Date Result Refere Interp Status Commen Order Detail nces retati t Range on Urine 9-analyte drugs of abuse screening (01-19-2017 10:10) Comment: Positive urine drug screen samples are stored for 7 days. Comment: Contact the Lab if confirmation of positives is needed. Urine NEGATIV <1000 complet ampheta 017 E ed mine 10:10 NEGATIV screeni E L ng test ng/mL Urine = <200 complet barbitu 017 NEGATIV ed rates 10:10 E ng/mL measure ment by screen Serum = 200 complet or 017 POSITIV ng/mL ed plasma 10:10 E ng/mL benzodi azepine s measure m Comment: This is an UNCONFIRMED result. This result is for medical Comment: purposes and/or treatment only. Cocaine = <300 complet 017 NEGATIV ed measure 10:10 E ng/g ment (mass/v olume) Methado = <300 complet ne 017 NEGATIV ed measure 10:10 E ng/mL ment (mass/v olume) Opiates = <300 complet 017 POSITIV ed measure 10:10 E ng/mL ment (mass/v olume) Comment: This is an UNCONFIRMED result. This result is for medical Comment: purposes and/or treatment only. Phencyc = <25 complet lidine 017 NEGATIV ed measure 10:10 E ng/mL ment (mass/v olume) 11-hydr NEGATIV <50 complet oxy 017 E ed delta-9 10:10 NEGATIV E L tetrahy ng/mL drocann abinol Drugs identified in Urine by Screen method (01-19-2017 10:10) Ampheta 01-19-2 NEGATIV <1000 complet mine 017 E ed [Presen 10:10 ce] in Urine by Screen method -Hydr NEGATIV <50 complet oxy 017 E ed delta-9 10:10 tetrahy drocann abinol [Presen ce] in Unspeci fied specime n Urine 9-analyte drugs of abuse screening (12-20-2016 10:00) Comment: Positive urine drug screen samples are stored for 7 days. Comment: Contact the Lab if confirmation of positives is needed. Urine NEGATIV <1000 complet ampheta 017 E ed mine 10:00 NEGATIV screeni E L ng test ng/mL Urine = <200 complet barbitu 017 NEGATIV ed rates 10:00 E ng/mL measure ment by screen Serum = 200 complet or 017 POSITIV ng/mL ed plasma 10:00 E ng/mL benzodi azepine s measure m Comment: This is an UNCONFIRMED result. This result is for medical Comment: purposes and/or treatment only. Cocaine = <300 complet 017 NEGATIV ed measure 10:00 E ng/g ment (mass/v olume) Methado = <300 complet ne 017 NEGATIV ed measure 10:00 E ng/mL ment (mass/v olume) Opiates = <300 complet 017 POSITIV ed measure 10:00 E ng/mL ment (mass/v olume) Comment: This is an UNCONFIRMED result. This result is for medical Comment: purposes and/or treatment only. Phencyc = <25 complet lidine 017 NEGATIV ed measure 10:00 E ng/mL ment (mass/v olume) 11-hydr 10-11-2 NEGATIV <50 complet oxy 017 E ed delta-9 10:00 NEGATIV E L tetrahy ng/mL drocann abinol Drugs identified in Urine by Screen method (12-20-2016 10:00) Ampheta 10-11-2 NEGATIV <1000 complet mine 017 E ed [Presen 10:00 ce] in Urine by Screen method 11-Hydr -11-2 NEGATIV <50 complet oxy 017 E ed delta-9 10:00 tetrahy drocann abinol [Presen ce] in Unspeci fied specime n Drugs identified in Urine by Screen method (11-23-2016 10:40) Ampheta -14-2 NEGATIV <1000 complet mine 017 E ed [Presen 10:40 ce] in Urine by Screen method 11-Hydr 11-23-2 NEGATIV <50 complet oxy 017 E ed delta-9 10:40 tetrahy drocann abinol [Presen ce] in Unspeci fied specime n Drugs identified in Urine by Screen method (10-27-2016 10:15) Ampheta 08-18-2 NEGATIV <1000 complet mine 017 E ed [Presen 10:15 ce] in Urine by Screen method 11-Hydr -18-2 POSITIV <50 Abnorma complet oxy 017 E l ed delta-9 10:15 tetrahy drocann abinol [Presen ce] in Unspeci fied specime n Drugs identified in Urine by Screen method (09-29-2016 10:05) Ampheta 07-21-2 NEGATIV <1000 complet mine 017 E ed [Presen 10:05 ce] in Urine by Screen method 11-Hydr 09-29-2 NEGATIV <50 complet oxy 017 E ed delta-9 10:05 tetrahy drocann abinol [Presen ce] in Unspeci fied specime n Urinalysis dipstick W Reflex Microscopic panel in Urine (09-01-2016 21:10) Bacteri TRACE O complet a 017 ed [Presen 21:10 ce] in Urine sedimen t by Light microsc opy Erythro 09-01- TNTC 0 complet cytes 017 ed [Presen 21:10 ce] in Urine sedimen t by Light microsc opy Epithel 09-01-2 OCC 0#/hp complet ial 017 f - ed cells.s 21:10 5#/hp quamous f [Presen ce] in Urine sedimen t by Microsc opy high power field Urinalysis dipstick W Reflex Microscopic panel in Urine (09-01-2016 21:10) Appeara 09-01-2 SL CLEAR complet nce of 017 CLOUDY ed Urine 21:10 Bilirub 09-01-2 NEGATIV NEG complet in 017 E ed [Presen 21:10 ce] in Urine by Test strip Erythro 09-01-2 3+ NEG Abnorma complet cytes 017 l ed [Presen 21:10 ce] in Urine Color 09-01-2 ORANGE YELLOW complet of 017 ed Urine 21:10 Ketones 09-01-2 NEGATIV NEG complet 017 E ed [Presen 21:10 ce] in Urine by Automat ed test strip Mucus 09-01-2 TRACE NEG Abnorma complet [Presen 017 l ed ce] in 21:10 Urine sedimen t by Light microsc opy Nitrite 09-01-2 POSITIV NEG Abnorma complet 017 E l ed [Presen 21:10 ce] in Urine by Test strip Urobili 09-01-2 1.0 NEG complet nogen 017 ed [Presen 21:10 ce] in Urine by Test strip CBC (hemogram) Bld Auto (09-01-2016 06:36) WBC 09-01-2 3.57 3.50-10 complet nRBC 017 10*3/mm .80 ed cor # 06:36 3 Bld RBC # 23-2 3.62 3.89-5. complet Bld 017 10*6/mm 14 ed Auto 06:36 3 Hgb 23-2 10.7 11.5-15 complet Bld-mCn 017 g/dL .5 ed c 06:36 Hct VFr 09-01-2 32.8 % 34.5-44 complet Bld 017 .0 ed Auto 06:36 MCV RBC 23-2 90.6 fL 80.0-99 complet Auto 017 .0 ed 06:36 MCH RBC 23-2 29.6 pg 27.0-31 complet Qn 017 .0 ed Auto 06:36 MCHC 23-2 32.6 32.0-36 complet RBC 017 g/dL .0 ed Auto-mC 06:36 nc RDW RBC 09-01-2 14.2 % 11.3-14 complet 017 .5 ed Auto-Rt 06:36 o RDW RBC 09-01-2 47.2 fl 37.0-54 complet Auto 017 .0 ed 06:36 PMV Bld 09-01-2 8.8 fL 6.0-12. complet Auto 017 0 ed 06:36 Platele 09-01-2 244 150-450 complet t # Bld 017 10*3/mm ed Auto 06:36 3 Bas Metab 2000 Pnl SerPl (09-01-2016 06:36) Comment: [employer] Guidelines Comment: Comment: Stage Description GFR Comment: 1 Normal or High 90+ Comment: 2 Mild decrease 60-89 Comment: 3 Moderate decrease 30-59 Comment: 4 Severe decrease 15-29 Comment: 5 Kidney failure <15 BUN 09-01-2 11 9-23 complet Bld-mCn 017 mg/dL ed c 06:36 Creat 09-01-2 0.80 0.60-1. complet Bld-mCn 017 mg/dL 30 ed c 06:36 Sodium 09-01-2 142 132-146 complet Bld-sCn 017 mmol/L ed c 06:36 Potassi 09-01-2 3.9 3.5-5.5 complet um 017 mmol/L ed Bld-sCn 06:36 c Chlorid 09-01-2 108 99-109 complet e 017 mmol/L ed SerPl-s 06:36 Cnc CO2 09-01-2 26.0 20.0-31 complet SerPl-s 017 mmol/L .0 ed Cnc 06:36 Calcium 09-01-2 9.9 8.7-10. complet 017 mg/dL 4 ed XXX-sCn 06:36 c GFR/BSA 09-01-2 76 >60 complet .pred 017 mL/min/ ed SerPl 06:36 1.73 MDRD-Ar VRat BUN/Cre 09-01-2 13.8 7.0-25. complet at 017 0 ed SerPl 06:36 Anion 23-2 8.0 3.0-11. complet Gap3 017 mmol/L 0 ed SerPl-s 06:36 Cnc Glucose 09-01-2 80 70-100 complet 017 mg/dL ed Bld-mCn 06:36 c Drugs identified in Urine by Screen method (08-30-2016 10:45) Ampheta NEGATIV <1000 complet mine 017 E ed [Presen 10:45 ce] in Urine by Screen method 11-Hydr NEGATIV <50 complet oxy 017 E ed delta-9 10:45 tetrahy drocann abinol [Presen ce] in Unspeci fied specime n Urinalysis dipstick W Reflex Microscopic panel in Urine (08-30-2016 00:07) Bacteri 1+ O complet a 017 ed [Presen 00:07 ce] in Urine sedimen t by Light microsc opy Erythro TNTC 0 complet cytes 017 ed [Presen 00:07 ce] in Urine sedimen t by Light microsc opy Epithel 5-10 0#/hp complet ial 017 f - ed cells.s 00:07 5#/hp quamous f [Presen ce] in Urine sedimen t by Microsc opy high power field Leukocy 3-5 O complet nuno 017 wbc/hpf ed [#/volu 00:07 me] in Urine Urinalysis dipstick W Reflex Microscopic panel in Urine (08-30-2016 00:07) Appeara TURBID CLEAR complet nce of 017 ed Urine 00:07 Bilirub NEGATIV NEG complet in 017 E ed [Presen 00:07 ce] in Urine by Test strip Erythro 3+ NEG Abnorma complet cytes 017 l ed [Presen 00:07 ce] in Urine Color LILLIAN YELLOW complet of 017 ed Urine 00:07 Ketones NEGATIV NEG complet 017 E ed [Presen 00:07 ce] in Urine by Automat ed test strip Mucus NEGATIV NEG complet [Presen 017 E ed ce] in 00:07 Urine sedimen t by Light microsc opy Nitrite NEGATIV NEG complet 017 E ed [Presen 00:07 ce] in Urine by Test strip Urobili 0.2 NEG complet nogen 017 ed [Presen 00:07 ce] in Urine by Test strip Urinalysis dipstick W Reflex Microscopic panel in Urine (08-26-2016 21:25) Amorpho TRACE NONE complet us 017 ed sedimen 21:25 t [Presen ce] in Urine sedimen t by Light microsc opy Urinalysis dipstick W Reflex Microscopic panel in Urine (08-26-2016 21:25) Appeara CLEAR CLEAR complet nce of 017 ed Urine 21:25 Bilirub NEGATIV NEG complet in 017 E ed [Presen 21:25 ce] in Urine by Test strip Erythro NEGATIV NEG complet cytes 017 E ed [Presen 21:25 ce] in Urine Color YELLOW YELLOW complet of 017 ed Urine 21:25 Ketones NEGATIV NEG complet 017 E ed [Presen 21:25 ce] in Urine by Automat ed test strip Mucus NEGATIV NEG complet [Presen 017 E ed ce] in 21:25 Urine sedimen t by Light microsc opy Nitrite NEGATIV NEG complet 017 E ed [Presen 21:25 ce] in Urine by Test strip Urobili 0.2 NEG complet nogen 017 ed [Presen 21:25 ce] in Urine by Test strip Drugs identified in Urine by Screen method (08-02-2016 10:10) Ampheta 08-02-2 NEGATIV <1000 complet mine 017 E ed [Presen 10:10 ce] in Urine by Screen method 11-Hydr 24-2 NEGATIV <50 complet oxy 017 E ed delta-9 10:10 tetrahy drocann abinol [Presen ce] in Unspeci fied specime n Urinalysis dipstick W Reflex Microscopic panel in Urine (07-26-2016 20:47) Bacteri TRACE O complet a 017 ed [Presen 20:47 ce] in Urine sedimen t by Light microsc opy Casts 07-26- OCC NONE complet [Presen 017 ed ce] in 20:47 Urine sedimen t by Light microsc opy Erythro 07-26- 5-10 0 complet cytes 017 ed [Presen 20:47 ce] in Urine sedimen t by Light microsc opy Epithel 07-26- 3-5 0#/hp complet ial 017 f - ed cells.s 20:47 5#/hp quamous f [Presen ce] in Urine sedimen t by Microsc opy high power field Urinalysis dipstick W Reflex Microscopic panel in Urine (07-26-2016 20:47) Appeara CLEAR CLEAR complet nce of 017 ed Urine 20:47 Bilirub NEGATIV NEG complet in 017 E ed [Presen 20:47 ce] in Urine by Test strip Erythro 3+ NEG Abnorma complet cytes 017 l ed [Presen 20:47 ce] in Urine Color YELLOW YELLOW complet of 017 ed Urine 20:47 Ketones NEGATIV NEG complet 017 E ed [Presen 20:47 ce] in Urine by Automat ed test strip Mucus TRACE NEG Abnorma complet [Presen 017 l ed ce] in 20:47 Urine sedimen t by Light microsc opy Nitrite NEGATIV NEG complet 017 E ed [Presen 20:47 ce] in Urine by Test strip Urobili 0.2 NEG complet nogen 017 ed [Presen 20:47 ce] in Urine by Test strip BASIC METABOLIC PANEL (02-14-2013 20:00) Glucose 121 74-106 complet 013 mg/dL ed Bld-mCn 20:00 c BUN 17 7-18 complet Bld-mCn 013 mg/dL ed c 20:00 Creat 1.2 0.6-1.0 complet SerPl-m 013 mg/dL ed Cnc 20:00 Creat 76 50-200 complet Cl 013 ML/MIN ed predict 20:00 ed SerPl C-G-vRa te GFR/BSA 48 59- complet .pred 013 ML/MIN ed SerPl 20:00 Schwart z-vRate Sodium 138 136-145 complet SerPl-s 013 mmoL/L ed Cnc 20:00 Potassi 12-06-2 4.8 3.5-5.1 complet um 013 mmoL/L ed SerPl-s 20:00 Cnc Chlorid 104 98-107 complet e 013 mmoL/L ed SerPl-s 20:00 Cnc CO2 30 21.0-32 complet SerPl-s 013 mmoL/L .0 ed Cnc 20:00 Calcium 8.9 8.5-10. complet 013 mg/dL 1 ed SerPl-m 20:00 Cnc CBC with AUTO DIFF (02-14-2013 20:00) WBC # 7.5 4.8-10. complet Bld 013 K/MM3 8 ed Auto 20:00 RBC # 4.22 4.2-5.4 complet Bld 013 M/mm3 ed Auto 20:00 Hgb 13.4 12.2-16 complet Bld-mCn 013 g/dL .2 ed c 20:00 Hct Fr 38.5 % 37.0-47 complet Bld 013 .0 ed 20:00 MCV RBC 91.2 fl 82.2-97 complet 013 .8 ed 20:00 MCH RBC 31.8 pg 27-31.2 complet Qn 013 ed Auto 20:00 MEAN 34.8 31.8-35 complet CORPUSC 013 g/dl .4 ed ULAR 20:00 HGB CONC RDW RBC 14.8 % 11.5-17 complet Auto 013 .5 ed 20:00 Platele 297 142-424 complet t Bld 013 K/mm3 ed Ql 20:00 Manual MEAN 7.5 fl 7.4-10. complet PLATELE 013 4 ed T 20:00 VOLUME Granulo 84.1 % 37.0-80 complet cytes 013 .0 ed Fr Bld 20:00 Auto LYMPH % 11.7 % 10-50.0 complet 013 ed 20:00 Monocyt 3.2 % 1.7-9.3 complet es Fr 013 ed Bld 20:00 Auto Eosinop 0.8 % 0.1-12. complet hil Fr 013 0 ed Bld 20:00 Auto Basophi 0.2 % 0.1-2.0 complet ls Fr 013 ed Bld 20:00 Auto Granulo 6.3 1.8-7.8 complet cytes # 013 K/mm3 ed Bld 20:00 Auto Lymphoc 0.9 0.7-4.5 complet ytes Fr 013 K/mm3 ed Bld 20:00 Auto Monocyt 0.2 0.1-1.0 complet es # 013 K/mm3 ed Bld 20:00 Auto Eosinop 0.1 0.0-0.4 complet hil # 013 K/mm3 ed Bld 20:00 Auto Basophi 0.0 0-0.2 complet ls # 013 K/MM3 ed Bld 20:00 Auto Encounters Encounter Start End Date Code Location Performer Type Date Emergency ROMEL Austin MD (ER) 3 09:02 3 10:07 [facility] Emergency ROMEL Jose MD (ER) 3 20:03 3 22:28 [facility] Emergency ROMEL Jose MD (ER) 3 10:30 3 10:31 [facility] Emergency ROMEL Jose MD (ER) 3 13:08 3 13:36 [facility]
--- OUTSIDE RECORDS SUMMARY | 2017-01-19 20:50 | External Medical Summary Rpt | CCD ---
Author Author , ASAD KAMARA Address Unknown Phone [email or web address] Immunization Name Date Rout CVX Reac Dose [...]
--- OUTSIDE RECORDS SUMMARY | 2017-01-19 20:50 | External Medical Summary Rpt | CCD ---
Author Author , ASAD Organization ASAD Address Unknown Phone [email or web address] Care Team Providers Care Fuel Buyer Name Role Phone Olvin Austin MD, Unavailable Unavailable Olvin Jose MD, Unavailable Unavailable Socorro Jose MD Purpose Continuity of Care Document - 12-20-2012 through 2016 Problems Code Diagnosis DOS Provider Status 487.1 487.1 FLU W 03-02-2013 [place] RESP [facility] V14.8 V14.8 03-02-2013 [place] HX-DRUG [facility] ALLERGY [facility] Hospital 053.9 053.9 02-14-2013 [place] HERPES [facility] Hospital 079.99 079.99 02-14-2013 [place] VIRAL [facility]FE[facility] Hospital NOS 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, NOT SPCF ACUTE OR CHRONIC N20.0 CALCULUS OF KIDNEY N23 UNSPECIFIED RENAL COLIC N39.0 URINARY TRACT INFECTION, SITE NOT SPECIFIED R10.9 UNSPECIFIED ABDOMINAL PAIN R31.9 HEMATURIA, UNSPECIFIED 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 Allergies, Adverse Reactions, Alerts [...] ti ve 32 5 MG -5 MG VA 00 12 0 No OM 64 -0 ET 11 6- Lo QUIROZ 49 20 ng ZI 53 13 er NE 5 Ac 25 ti ve MG /M L AM PU L AC 00 12 0 No YC 09 -0 LO 38 6- Lo 94 20 ng R 30 13 er 40 1 0 Ac MG ti ve TA BL ET VA 00 12 0 No ED 05 -0 NI 40 6- Lo SO 01 20 ng NE 82 13 er 0 20 Ac ti MG ve TA BL ET VA 51 12 0 No OM 07 -0 [...] ng CE 42 13 er TA 1 ND Ac N- ti CA ve FF 50 [...] Austin MD (ER) 3 09:02 3 10:07 [facility] Emergency ROMEL Jose MD (ER) 3 20:03 3 22:28 [facility] Emergency ROMEL Jose MD (ER) 3 10:30 3 10:31 [facility] Emergency ROMEL Jose MD (ER) 3 13:08 3 13:36 [facility]
--- OUTSIDE RECORDS SUMMARY | 2017-01-19 20:53 | External Medical Summary Rpt ---
Author Author STEFANOPRABHAKAR Leonard, [employer] [employer] Organization [employer] Address Unknown Phone Unavailable Results Drugs identified in Urine by Screen method Observa Value Referen Units Interpr Notes Date tion ce etation Range Positive urine drug screen samples are stored for 7 days. Contact the Lab if confirmation of positives is needed. Ampheta NEGATIV <1000 ng/mL No No Jan 19 mine E informa informa 2017 [Presen tion in tion in 10:10 ce] in source source AM Urine data data by Screen method Barbitura <200 ng/mL No No Jan 19 nuno informati informati 2017 [Mass/vol on in on in 10:10 AM ume] in source source Urine by data data Screen method Benzodiaz 200 ng/mL ng/mL High This is Jan 19 epines an 2016 [Mass/vol UNCONFIRM 10:10 AM ume] in ED Serum or result. Plasma by This Screen result is method for medicalpu rposes and/or treatment only. Cocaine <300 ng/g No No Jan 19 [Mass/vol informati informati 2017 ume] in on in on in 10:10 AM Unspecifi source source ed data data specimen Methadone <300 ng/mL No No Jan 19 informati informati 2016 [Mass/vol on in on in 10:10 AM ume] in source source Unspecifi data data ed specimen Opiates <300 ng/mL High This is Jan 19 [Mass/vol an 2016 ume] in UNCONFIRM 10:10 AM Unspecifi ED ed result. specimen This result is for medicalpu rposes and/or treatment only. Phencycli <25 ng/mL No No Jan 19 dine informati informati 2017 [Mass/vol on in on in 10:10 AM ume] in source source Unspecifi data data ed specimen 11-Hydr NEGATIV <50 ng/mL No No Jan 19 oxy E informa informa 2017 delta-9 tion in tion in 10:10 source source AM tetrahy data data drocann abinol [Presen ce] in Unspeci fied specime n Drugs identified in Urine by Screen method Observa Value Referen Units Interpr Notes Date tion ce etation Range Positive urine drug screen samples are stored for 7 days. Contact the Lab if confirmation of positives is needed. Ampheta NEGATIV <1000 ng/mL No No Dec 20 mine E informa informa 2017 [Presen tion in tion in 10:00 ce] in source source AM Urine data data by Screen method Barbitura <200 ng/mL No No Dec 20 nuno informati informati 2017 [Mass/vol on in on in 10:00 AM ume] in source source Urine by data data Screen method Benzodiaz 200 ng/mL ng/mL High This is Dec 20 epines an 2016 [Mass/vol UNCONFIRM 10:00 AM ume] in ED Serum or result. Plasma by This Screen result is method for medicalpu rposes and/or treatment only. Cocaine <300 ng/g No No Dec 20 [Mass/vol informati informati 2017 ume] in on in on in 10:00 AM Unspecifi source source ed data data specimen Methadone <300 ng/mL No No Dec 20 informati informati 2017 [Mass/vol on in on in 10:00 AM ume] in source source Unspecifi data data ed specimen Opiates <300 ng/mL High This is Dec 20 [Mass/vol an 2017 ume] in UNCONFIRM 10:00 AM Unspecifi ED ed result. specimen This result is for medicalpu rposes and/or treatment only. Phencycli <25 ng/mL No No Dec 20 dine informati informati 2017 [Mass/vol on in on in 10:00 AM ume] in source source Unspecifi data data ed specimen 11-Hydr NEGATIV <50 ng/mL No No Dec 20 oxy E informa informa 2017 delta-9 tion in tion in 10:00 source source AM tetrahy data data drocann abinol [Presen ce] in Unspeci fied specime n Drugs identified in Urine by Screen method Observa Value Referen Units Interpr Notes Date tion ce etation Range Positive urine drug screen samples are stored for 7 days. Contact the Lab if confirmation of positives is needed. Ampheta NEGATIV <1000 ng/mL No No Sep 14 mine E informa informa 2017 [Presen tion in tion in 10:40 ce] in source source AM Urine data data by Screen method Barbitura <200 ng/mL No No Sep 14 nuno informati informati 2017 [Mass/vol on in on in 10:40 AM ume] in source source Urine by data data Screen method Benzodiaz 200 ng/mL ng/mL High This is Sep 14 epines an 2017 [Mass/vol UNCONFIRM 10:40 AM ume] in ED Serum or result. Plasma by This Screen result is method for medicalpu rposes and/or treatment only. Cocaine <300 ng/g No No Sep 14 [Mass/vol informati informati 2016 ume] in on in on in 10:40 AM Unspecifi source source ed data data specimen Methadone <300 ng/mL No No Sep 14 informati informati 2016 [Mass/vol on in on in 10:40 AM ume] in source source Unspecifi data data ed specimen Opiates <300 ng/mL High This is Sep [Mass/vol an 2016 ume] in UNCONFIRM 10:40 AM Unspecifi ED ed result. specimen This result is for medicalpu rposes and/or treatment only. Phencycli <25 ng/mL No No Sep 14 dine informati informati 2016 [Mass/vol on in on in 10:40 AM ume] in source source Unspecifi data data ed specimen 11-Hydr NEGATIV <50 ng/mL No No Sep 14 oxy E informa informa 2017 delta-9 tion in tion in 10:40 source source AM tetrahy data data drocann abinol [Presen ce] in Unspeci fied specime n Drugs identified in Urine by Screen method Observa Value Referen Units Interpr Notes Date tion ce etation Range Positive urine drug screen samples are stored for 7 days. Contact the Lab if confirmation of positives is needed. Ampheta NEGATIV <1000 ng/mL No No Oct 27 mine E informa informa 2016 [Presen tion in tion in 10:15 ce] in source source AM Urine data data by Screen method Barbitura <200 ng/mL No No Oct 18 nuno informati informati 2016 [Mass/vol on in on in 10:15 AM ume] in source source Urine by data data Screen method Benzodiaz 200 ng/mL ng/mL High This is Oct 27 epines an 2016 [Mass/vol UNCONFIRM 10:15 AM ume] in ED Serum or result. Plasma by This Screen result is method for medicalpu rposes and/or treatment only. Cocaine <300 ng/g No No Oct 27 [Mass/vol informati informati 2016 ume] in on in on in 10:15 AM Unspecifi source source ed data data specimen Methadone <300 ng/mL No No Oct 27 informati informati 2016 [Mass/vol on in on in 10:15 AM ume] in source source Unspecifi data data ed specimen Opiates <300 ng/mL High This is Oct 27 [Mass/vol an 2016 ume] in UNCONFIRM 10:15 AM Unspecifi ED ed result. specimen This result is for medicalpu rposes and/or treatment only. Phencycli <25 ng/mL No No Oct 27 dine informati informati 2016 [Mass/vol on in on in 10:15 AM ume] in source source Unspecifi data data ed specimen 11-Hydr POSITIV <50 ng/mL Abnorma This is Oct 27 oxy E l an 2016 delta-9 UNCONFI 10:15 RMED AM tetrahy result. drocann This abinol result [Presen is for ce] in medical Unspeci purpose fied s specime and/or n treatme nt only. Drugs identified in Urine by Screen method Observa Value Referen Units Interpr Notes Date tion ce etation Range Positive urine drug screen samples are stored for 7 days. Contact the Lab if confirmation of positives is needed. Ampheta NEGATIV <1000 ng/mL No No Sep 29 mine E informa informa 2017 [Presen tion in tion in 10:05 ce] in source source AM Urine data data by Screen method Barbitura <200 ng/mL No No Sep 29 nuno informati informati 2016 [Mass/vol on in on in 10:05 AM ume] in source source Urine by data data Screen method Benzodiaz 200 ng/mL ng/mL High This is Sep 29 epines an 2016 [Mass/vol UNCONFIRM 10:05 AM ume] in ED Serum or result. Plasma by This Screen result is method for medicalpu rposes and/or treatment only. Cocaine <300 ng/g No No Sep 29 [Mass/vol informati informati 2016 ume] in on in on in 10:05 AM Unspecifi source source ed data data specimen Methadone <300 ng/mL No No Sep 29 informati informati 2016 [Mass/vol on in on in 10:05 AM ume] in source source Unspecifi data data ed specimen Opiates <300 ng/mL High This is Sep 29 [Mass/vol an 2016 ume] in UNCONFIRM 10:05 AM Unspecifi ED ed result. specimen This result is for medicalpu rposes and/or treatment only. Phencycli <25 ng/mL No No Sep 29 dine informati informati 2016 [Mass/vol on in on in 10:05 AM ume] in source source Unspecifi data data ed specimen 11-Hydr NEGATIV <50 ng/mL No No Sep 29 oxy E informa informa 2017 delta-9 tion in tion in 10:05 source source AM tetrahy data data drocann abinol [Presen ce] in Unspeci fied specime n Basic metabolic panel in Blood Observa Value Referen Units Interpr Notes Date tion ce etation Range Urea 7 - 18 mg/dL Normal No Sep 02 nitrogen informati 2016 6:35 [Mass/vol on in AM ume] in source Serum or data Plasma Calcium 8.5 - mg/dL Normal No Sep 02 [Mass/vol 10.1 informati 2017 6:35 ume] in on in AM Serum or source Plasma data Chloride 98 - 107 mmoL/L Normal No Sep 02 [Moles/vo informati 2016 6:35 lume] in on in AM Serum or source Plasma data Carbon 21.0 - mmoL/L Normal No Sep 02 dioxide, 32.0 informati 2017 6:35 total on in AM [Moles/vo source lume] in data Serum or Plasma Creatinin 0.55 - mg/dL Normal No Sep 02 e 1.02 informati 2017 6:35 [Mass/vol on in AM ume] in source Serum or data Plasma Creatinin 50 - 200 ML/MIN Normal No Sep 02 e renal informati 2017 6:35 clearance on in AM source predicted data by Cockcroft -Gault formula Estimated 59- ML/MIN No REFERENCE Sep 02 informati RANGE: 2017 6:35 glomerula on in >60 AM r source ML/MIN/1. filtratio data 73 SQUARE n rate METERSIf (GF this patient is -A merican, then multiply theresult by 1.210. Glucose 74 - 106 mg/dL Normal No Sep 02 [Mass/vol informati 2016 6:35 ume] in on in AM Serum or source Plasma data Potassium 3.5 - 5.1 mmoL/L Normal No Sep 02 informati 2016 6:35 [Moles/vo on in AM lume] in source Serum or data Plasma Sodium 136 - 145 mmoL/L Normal No Sep 02 [Moles/vo informati 2016 6:35 lume] in on in AM Serum or source Plasma data CBC W Auto Differential panel in Blood Observa Value Referen Units Interpr Notes Date tion ce etation Range Basophils 0 - 0.2 K/MM3 Normal No Sep 02 informati 2016 6:35 [#/volume on in AM ] in source Blood by data Automated count Basophils 0.1 - 2.0 % Normal No Sep 02 / informati 2017 6:35 leukocyte on in AM s in source Blood by data Automated count Eosinophi 0.0 - 0.4 K/mm3 Normal No Sep 02 ls informati 2016 6:35 [#/volume on in AM ] in source Blood by data Automated count Eosinophi 0.1 - % Normal No Sep 02 ls/100 12.0 informati 2017 6:35 leukocyte on in AM s in source Blood by data Automated count Granulocy 1.8 - 7.8 K/mm3 Normal No Sep 02 nuno informati 2016 6:35 [#/volume on in AM ] in source Blood by data Automated count Granulocy 37.0 - % Normal No Sep 02 nuno/100 80.0 informati 2016 6:35 leukocyte on in AM s in source Blood by data Automated count Hematocri 37.0 - % Low No Sep 02 t [Volume 47.0 informati 2017 6:35 on in AM Fraction] source of Blood data Hemoglobi 12.2 - g/dL Low No Sep 02 n 16.2 informati 2016 6:35 [Mass/vol on in AM ume] in source Blood data Lymphocyt 0.7 - 4.5 K/mm3 Normal No Sep 02 es informati 2016 6:35 [#/volume on in AM ] in source Unspecifi data ed specimen by Automated count Lymphocyt 10 - 50.0 % Normal No Sep 02 es informati 2016 6:35 [#/volume on in AM ] in source Unspecifi data ed specimen by Automated count Erythrocy 27 - 31.2 pg Normal No Sep 02 te mean informati 2016 6:35 corpuscul on in AM ar source hemoglobi data n [Entitic mass] Erythrocy 31.8 - g/dl Normal No Sep 02 te mean 35.4 informati 2016 6:35 corpuscul on in AM ar source hemoglobi data n concentra tion [Mass/vol ume] by Automated count Erythrocy 82.2 - fl Normal No Sep 02 te mean 97.8 informati 2017 6:35 corpuscul on in AM ar volume source [Entitic data volume] by Automated count Monocytes 0.1 - 1.0 K/mm3 Normal No Sep 02 informati 2017 6:35 [#/volume on in AM ] in source Blood by data Automated count Monocytes 1.7 - 9.3 % Normal No Aug 24 /100 informati 2017 6:35 leukocyte on in AM s in source Blood by data Automated count Platelet 7.4 - fl Normal No Sep 02 mean 10.4 informati 2017 6:35 volume on in AM [Entitic source volume] data in Blood by Automated count Platelets 142 - 424 K/mm3 Normal No Sep 02 informati 2017 6:35 [#/volume on in AM ] in source Blood data Erythrocy 4.2 - 5.4 M/mm3 Low No Sep 02 nuno informati 2017 6:35 [#/volume on in AM ] in source Amniotic data fluid Erythrocy 11.5 - % Normal No Sep 02 te 17.5 informati 2017 6:35 distribut on in AM ion width source [Entitic data volume] by Automated count Leukocyte 4.8 - K/MM3 No No Sep 02 s 10.8 informati informati 2017 6:35 [#/volume on in on in AM ] in source source Blood data data Comprehensive metabolic 2000 panel in Serum or Plasma Observa Value Referen Units Interpr Notes Date tion ce etation Range Albumin/G 1.1 - 1.8 No Normal No Sep 01 lobulin informati informati 2017 9:17 [Mass on in on in PM ratio] in source source Serum or data data Plasma Albumin 3.4 - 5.0 gm/dL Normal No Sep 01 [Mass/vol informati 2017 9:17 ume] in on in PM Serum or source Plasma data Alkaline 46 - 116 U/L Normal No Sep 01 phosphata informati 2017 9:17 se on in PM [Enzymati source c data activity/ volume] in Serum or Plasma Bilirubin 0.2 - 1.0 mg/dL Normal No Sep 01 .total informati 2017 9:17 [Mass/vol on in PM ume] in source Serum or data Plasma Urea 7 - 18 mg/dL Normal No Sep 01 nitrogen informati 2017 9:17 [Mass/vol on in PM ume] in source Serum or data Plasma Calcium 8.5 - mg/dL Normal No Sep 01 [Mass/vol 10.1 informati 2017 9:17 ume] in on in PM Serum or source Plasma data Chloride 98 - 107 mmoL/L Normal No Sep 01 [Moles/vo informati 2017 9:17 lume] in on in PM Serum or source Plasma data Carbon 21.0 - mmoL/L Normal No Sep 01 dioxide, 32.0 informati 2017 9:17 total on in PM [Moles/vo source lume] in data Serum or Plasma Creatinin 0.55 - mg/dL High No Sep 01 e 1.02 informati 2017 9:17 [Mass/vol on in PM ume] in source Serum or data Plasma Creatinin 50 - 200 ML/MIN Normal No Sep 01 e renal informati 2017 9:17 clearance on in PM source predicted data by Cockcroft -Gault formula Estimated 59- ML/MIN Low REFERENCE Sep 01 RANGE: 2017 9:17 glomerula >60 PM r ML/MIN/1. filtratio 73 SQUARE n rate METERSIf (GF this patient is -A merican, then multiply theresult by 1.210. Globulin 1.3 - 3.2 gm/dL High No Sep 01 [Mass/vol informati 2017 9:17 ume] in on in PM Serum source data Glucose 74 - 106 mg/dL High No Sep 01 [Mass/vol informati 2017 9:17 ume] in on in PM Serum or source Plasma data Potassium 3.5 - 5.1 mmoL/L Normal No Sep 01 informati 2017 9:17 [Moles/vo on in PM lume] in source Serum or data Plasma Sodium 136 - 145 mmoL/L Normal No Sep 01 [Moles/vo informati 2017 9:17 lume] in on in PM Serum or source Plasma data Aspartate 15 - 37 U/L Normal No Sep 01 informati 2016 9:17 aminotran on in PM sferase source [Enzymati data c activity/ volume] in Serum or Plasma Alanine 12 - 78 U/L Normal No Sep 01 aminotran informati 2016 9:17 sferase on in PM [Enzymati source c data activity/ volume] in Serum or Plasma Protein 6.4 - 8.2 gm/dL Normal No Sep 01 [Mass/vol informati 2016 9:17 ume] in on in PM Serum or source Plasma data CBC W Auto Differential panel in Blood Observa Value Referen Units Interpr Notes Date tion ce etation Range Basophils 0 - 0.2 K/MM3 Normal No Sep 01 informati 2016 9:17 [#/volume on in PM ] in source Blood by data Automated count Basophils 0.1 - 2.0 % Normal No Sep 01 / informati 2016 9:17 leukocyte on in PM s in source Blood by data Automated count Eosinophi 0.0 - 0.4 K/mm3 Normal No Sep 01 ls informati 2016 9:17 [#/volume on in PM ] in source Blood by data Automated count Eosinophi 0.1 - % Normal No Sep 01 ls/100 12.0 informati 2016 9:17 leukocyte on in PM s in source Blood by data Automated count Granulocy 1.8 - 7.8 K/mm3 Normal No Sep 01 nuno informati 2016 9:17 [#/volume on in PM ] in source Blood by data Automated count Granulocy 37.0 - % High No Sep 01 nuno/100 80.0 informati 2016 9:17 leukocyte on in PM s in source Blood by data Automated count Hematocri 37.0 - % Low Sep 01 t [Volume 47.0 informati 2016 9:17 on in PM Fraction] source of Blood data Hemoglobi 12.2 - g/dL Low No Sep 01 n 16.2 informati 2016 9:17 [Mass/vol on in PM ume] in source Blood data Lymphocyt 0.7 - 4.5 K/mm3 Low No Sep 01 es informati 2016 9:17 [#/volume on in PM ] in source Unspecifi data ed specimen by Automated count Lymphocyt 10 - 50.0 % Normal No Sep 01 es informati 2016 9:17 [#/volume on in PM ] in source Unspecifi data ed specimen by Automated count Erythrocy 27 - 31.2 pg Normal No Sep 01 te mean informati 2016 9:17 corpuscul on in PM ar source hemoglobi data n [Entitic mass] Erythrocy 31.8 - g/dl Normal No Sep 01 te mean 35.4 informati 2017 9:17 corpuscul on in PM ar source hemoglobi data n concentra tion [Mass/vol ume] by Automated count Erythrocy 82.2 - fl Normal No Sep 01 te mean 97.8 informati 2016 9:17 corpuscul on in PM ar volume source [Entitic data volume] by Automated count Monocytes 0.1 - 1.0 K/mm3 Normal No Sep 01 informati 2017 9:17 [#/volume on in PM ] in source Blood by data Automated count Monocytes 1.7 - 9.3 % Normal No Aug 23 /100 informati 2017 9:17 leukocyte on in PM s in source Blood by data Automated count Platelet 7.4 - fl Low No Sep 01 mean 10.4 informati 2017 9:17 volume on in PM [Entitic source volume] data in Blood by Automated count Platelets 142 - 424 K/mm3 Normal No Sep 01 informati 2017 9:17 [#/volume on in PM ] in source Blood data Erythrocy 4.2 - 5.4 M/mm3 Low No Sep 01 nuno informati 2017 9:17 [#/volume on in PM ] in source Amniotic data fluid Erythrocy 11.5 - % Normal No Sep 01 te 17.5 informati 2016 9:17 distribut on in PM ion width source [Entitic data volume] by Automated count Leukocyte 4.8 - K/MM3 Low No Sep 01 s 10.8 informati 2016 9:17 [#/volume on in PM ] in source Blood data Urinalysis dipstick W Reflex Microscopic panel in Urine Observa Value Referen Units Interpr Notes Date tion ce etation Range Appeara SL CLEAR No No No Sep 01 nce of CLOUDY informa informa informa 2017 Urine tion in tion in tion in 9:10 PM source source source data data data Bacteri TRACE O No No No Sep 01 a informa informa informa 2017 [Presen tion in tion in tion in 9:10 PM ce] in source source source Urine data data data sedimen t by Light microsc opy Bilirub NEGATIV NEG No No No Sep 01 in E informa informa informa 2017 [Presen tion in tion in tion in 9:10 PM ce] in source source source Urine data data data by Test strip Erythro 3+ NEG No Abnorma No Sep 01 cytes informa l informa 2016 [Presen tion in tion in 9:10 PM ce] in source source Urine data data Color ORANGE YELLOW No No No Sep 01 of informa informa informa 2017 Urine tion in tion in tion in 9:10 PM source source source data data data Glucose NEG No No No Sep 01 [Mass/vol informati informati informati 2017 9:10 ume] in on in on in on in PM Urine by source source source Test data data data strip Ketones NEGATIV NEG mg/dL No No Sep 01 E informa informa 2016 [Presen tion in tion in 9:10 PM ce] in source source Urine data data by Automat ed test strip Mucus TRACE NEG No Abnorma No Sep 01 [Presen informa l informa 2016 ce] in tion in tion in 9:10 PM Urine source source sedimen data data t by Light microsc opy Nitrite POSITIV NEG No Abnorma No Sep 01 E informa l informa 2016 [Presen tion in tion in 9:10 PM ce] in source source Urine data data by Test strip pH of 5.0 - 8.5 No Normal No Sep 01 Urine informati informati 2017 9:10 on in on in PM source source data data Protein NEG mg/dL High No Sep 01 [Mass/vol informati 2017 9:10 ume] in on in PM Urine by source Automated data test strip Erythro TNTC 0 rbc/hpf No No Sep 01 cytes informa informa 2016 [Presen tion in tion in 9:10 PM ce] in source source Urine data data sedimen t by Light microsc opy Specific 1.005 - No Normal No Sep 01 gravity 1.030 informati informati 2017 9:10 of Urine on in on in PM source source data data Epithel OCC 0 - 5 #/hpf No No Sep 01 ial informa informa 2017 cells.s tion in tion in 9:10 PM quamous source source data data [Presen ce] in Urine sedimen t by Microsc opy high power field Urobili 1.0 NEG E.U./dL No No Sep 01 nogen informa informa 2016 [Presen tion in tion in 9:10 PM ce] in source source Urine data data by Test strip Leukocyte O wbc/hpf No No Sep 01 s informati informati 2017 9:10 [#/volume on in on in PM ] in source source Urine data data Urinalysis dipstick W Reflex Microscopic panel in Urine Observa Value Referen Units Interpr Notes Date tion ce etation Range Appeara SL CLEAR No No No Sep 01 nce of CLOUDY informa informa informa 2017 Urine tion in tion in tion in 9:10 PM source source source data data data Bilirub NEGATIV NEG No No No Sep 01 in E informa informa informa 2016 [Presen tion in tion in tion in 9:10 PM ce] in source source source Urine data data data by Test strip Erythro 3+ NEG No Abnorma No Sep 01 cytes informa l informa 2016 [Presen tion in tion in 9:10 PM ce] in source source Urine data data Color ORANGE YELLOW No No No Sep 01 of informa informa informa 2017 Urine tion in tion in tion in 9:10 PM source source source data data data Glucose NEG No No No Sep 01 [Mass/vol informati informati informati 2017 9:10 ume] in on in on in on in PM Urine by source source source Test data data data strip Ketones NEGATIV NEG mg/dL No No Sep 01 E informa informa 2016 [Presen tion in tion in 9:10 PM ce] in source source Urine data data by Automat ed test strip Mucus TRACE NEG No Abnorma No Sep 01 [Presen informa l informa 2016 ce] in tion in tion in 9:10 PM Urine source source sedimen data data t by Light microsc opy Nitrite POSITIV NEG No Abnorma No Sep 01 E informa l informa 2016 [Presen tion in tion in 9:10 PM ce] in source source Urine data data by Test strip pH of 5.0 - 8.5 No Normal No Sep 01 Urine informati informati 2017 9:10 on in on in PM source source data data Protein NEG mg/dL High No Sep 01 [Mass/vol informati 2016 9:10 ume] in on in PM Urine by source Automated data test strip Specific 1.005 - No Normal No Sep 01 gravity 1.030 informati informati 2016 9:10 of Urine on in on in PM source source data data Urobili 1.0 NEG E.U./dL No No Sep 01 nogen informa informa 2016 [Presen tion in tion in 9:10 PM ce] in source source Urine data data by Test strip Drugs identified in Urine by Screen method Observa Value Referen Units Interpr Notes Date tion ce etation Range Positive urine drug screen samples are stored for 7 days. Contact the Lab if confirmation of positives is needed. Ampheta NEGATIV <1000 ng/mL No No Aug 30 mine E informa informa 2016 [Presen tion in tion in 10:45 ce] in source source AM Urine data data by Screen method Barbitura <200 ng/mL No No Aug 30 nuno informati informati 2016 [Mass/vol on in on in 10:45 AM ume] in source source Urine by data data Screen method Benzodiaz 200 ng/mL ng/mL High This is Aug 30 epines an 2016 [Mass/vol UNCONFIRM 10:45 AM ume] in ED Serum or result. Plasma by This Screen result is method for medicalpu rposes and/or treatment only. Cocaine <300 ng/g No No Aug 30 [Mass/vol informati informati 2017 ume] in on in on in 10:45 AM Unspecifi source source ed data data specimen Methadone <300 ng/mL No No Aug 30 informati informati 2016 [Mass/vol on in on in 10:45 AM ume] in source source Unspecifi data data ed specimen Opiates <300 ng/mL High This is Aug 30 [Mass/vol an 2016 ume] in UNCONFIRM 10:45 AM Unspecifi ED ed result. specimen This result is for medicalpu rposes and/or treatment only. Phencycli <25 ng/mL No No Aug 30 dine informati informati 2016 [Mass/vol on in on in 10:45 AM ume] in source source Unspecifi data data ed specimen 11-Hydr NEGATIV <50 ng/mL No No Aug 30 oxy E informa informa 2017 delta-9 tion in tion in 10:45 source source AM tetrahy data data drocann abinol [Presen ce] in Unspeci fied specime n CBC W Auto Differential panel in Blood Observa Value Referen Units Interpr Notes Date tion ce etation Range Basophils 0 - 0.2 K/MM3 Normal No Aug 30 inform2016 [#/volume on in 12:20 AM ] in source Blood by data Automated count Basophils 0.1 - 2.0 % Normal No Aug 30 /100 inform2016 leukocyte on in 12:20 AM s in source Blood by data Automated count Eosinophi 0.0 - 0.4 K/mm3 Normal No Aug 30 ls informati 2016 [#/volume on in 12:20 AM ] in source Blood by data Automated count Eosinophi 0.1 - % Normal No Aug 30 ls/100 12.0 inform2016 leukocyte on in 12:20 AM s in source Blood by data Automated count Granulocy 1.8 - 7.8 K/mm3 Normal No Aug 30 nuno inform2016 [#/volume on in 12:20 AM ] in source Blood by data Automated count Granulocy 37.0 - % Normal No Aug 30 nuno/100 80.0 inform2016 leukocyte on in 12:20 AM s in source Blood by data Automated count Hematocri 37.0 - % Low No Aug 30 t [Volume 47.0 ati 2016 on in 12:20 AM Fraction] source of Blood data Hemoglobi 12.2 - g/dL Low No Aug 30 n 16.2 informati 2016 [Mass/vol on in 12:20 AM ume] in source Blood data Lymphocyt 0.7 - 4.5 K/mm3 Normal No Aug 30 es inform2016 [#/volume on in 12:20 AM ] in source Unspecifi data ed specimen by Automated count Lymphocyt 10 - 50.0 % Normal No Aug 30 es inform2016 [#/volume on in 12:20 AM ] in source Unspecifi data ed specimen by Automated count Erythrocy 27 - 31.2 pg Normal No Aug 30 te mean inform2016 corpuscul on in 12:20 AM ar source hemoglobi data n [Entitic mass] Erythrocy 31.8 - g/dl Normal No Aug 30 te mean 35.4 2016 corpuscul on in 12:20 AM ar source hemoglobi data n concentra tion [Mass/vol ume] by Automated count Erythrocy 82.2 - fl Normal No Aug 30 te mean 97.8 2016 corpuscul on in 12:20 AM ar volume source [Entitic data volume] by Automated count Monocytes 0.1 - 1.0 K/mm3 Normal No Aug 302016 [#/volume on in 12:20 AM ] in source Blood by data Automated count Monocytes 1.7 - 9.3 % Normal No Aug 30 /100 2016 leukocyte on in 12:20 AM s in source Blood by data Automated count Platelet 7.4 - fl Low No Aug 30 mean 10.4 2016 volume on in 12:20 AM [Entitic source volume] data in Blood by Automated count Platelets 142 - 424 K/mm3 Normal No Aug 302016 [#/volume on in 12:20 AM ] in source Blood data Erythrocy 4.2 - 5.4 M/mm3 Low No Aug 30 nuno 2016 [#/volume on in 12:20 AM ] in source Amniotic data fluid Erythrocy 11.5 - % Normal No Aug 30 te 17.5 2016 distribut on in 12:20 AM ion width source [Entitic data volume] by Automated count Leukocyte 4.8 - K/MM3 Low No Aug 30 s 10.8 2016 [#/volume on in 12:20 AM ] in source Blood data Erythrocyte sedimentation rate by Westergren method Observa Value Referen Units Interpr Notes Date tion ce etation Range Erythrocy 0 - 20 mm/hr Normal No Aug 30 te 2016 sedimenta on in 12:20 AM tion rate source by data Westergre n method Comprehensive metabolic 2000 panel in Serum or Plasma Observa Value Referen Units Interpr Notes Date tion ce etation Range Albumin/G 1.1 - 1.8 No Normal No Aug 30 lobulin informati 2016 [Mass on in on in 12:20 AM ratio] in source source Serum or data data Plasma Albumin 3.4 - 5.0 gm/dL Normal No Aug 30 [Mass/vol 2016 ume] in on in 12:20 AM Serum or source Plasma data Alkaline 46 - 116 U/L Normal No Aug 30 phosphata 2016 se on in 12:20 AM [Enzymati source c data activity/ volume] in Serum or Plasma Bilirubin 0.2 - 1.0 mg/dL Normal No Aug 30 .total informati 2016 [Mass/vol on in 12:20 AM ume] in source Serum or data Plasma Urea 7 - 18 mg/dL Normal No Aug 30 nitrogen informati 2016 [Mass/vol on in 12:20 AM ume] in source Serum or data Plasma Calcium 8.5 - mg/dL Normal No Aug 30 [Mass/vol 10.1 informati 2016 ume] in on in 12:20 AM Serum or source Plasma data Chloride 98 - 107 mmoL/L Normal No Aug 30 [Moles/vo informati 2017 lume] in on in 12:20 AM Serum or source Plasma data Carbon 21.0 - mmoL/L Normal No Aug 30 dioxide, 32.0 informati 2016 total on in 12:20 AM [Moles/vo source lume] in data Serum or Plasma Creatinin 0.55 - mg/dL High No Aug 30 e 1.02 informati 2016 [Mass/vol on in 12:20 AM ume] in source Serum or data Plasma Creatinin 50 - 200 ML/MIN Normal No Aug 30 e renal informati 2017 clearance on in 12:20 AM source predicted data by Cockcroft -Gault formula Estimated 59- ML/MIN Low REFERENCE Aug 30 RANGE: 2017 glomerula >60 12:20 AM r ML/MIN/1. filtratio 73 SQUARE n rate METERSIf (GF this patient is -A merican, then multiply theresult by 1.210. Globulin 1.3 - 3.2 gm/dL Normal No Aug 30 [Mass/vol informati 2016 ume] in on in 12:20 AM Serum source data Glucose 74 - 106 mg/dL Normal No Aug 30 [Mass/vol informati 2017 ume] in on in 12:20 AM Serum or source Plasma data Potassium 3.5 - 5.1 mmoL/L Low No Aug 30 informati 2016 [Moles/vo on in 12:20 AM lume] in source Serum or data Plasma Sodium 136 - 145 mmoL/L Normal No Aug 30 [Moles/vo informati 2017 lume] in on in 12:20 AM Serum or source Plasma data Aspartate 15 - 37 U/L Low No Aug 30 inform2016 aminotran on in 12:20 AM sferase source [Enzymati data c activity/ volume] in Serum or Plasma Alanine 12 - 78 U/L Normal No Aug 30 aminotran informati 2017 sferase on in 12:20 AM [Enzymati source c data activity/ volume] in Serum or Plasma Protein 6.4 - 8.2 gm/dL Normal No Aug 30 [Mass/vol informati 2017 ume] in on in 12:20 AM Serum or source Plasma data Lactate [Moles/volume] in Blood Observa Value Referen Units Interpr Notes Date tion ce etation Range Lactate 0.4 - 2.0 mmol/L Normal No Aug 30 [Moles/vo informati 2017 lume] in on in 12:20 AM Blood source data CRP Observa Value Referen Units Interpr Notes Date tion ce etation Range CRP 0.0 - 0.9 MG/DL High No Aug 30 informati 2017 on in 12:07 AM source data Urinalysis dipstick W Reflex Microscopic panel in Urine Observa Value Referen Units Interpr Notes Date tion ce etation Range Appeara TURBID CLEAR No No No Aug 30 nce of informa informa informa 2017 Urine tion in tion in tion in 12:07 source source source AM data data data Bacteri 1+ O No No No Aug 30 a informa informa informa 2016 [Presen tion in tion in tion in 12:07 ce] in source source source AM Urine data data data sedimen t by Light microsc opy Bilirub NEGATIV NEG No No No Aug 30 in E informa informa informa 2016 [Presen tion in tion in tion in 12:07 ce] in source source source AM Urine data data data by Test strip Erythro 3+ NEG No Abnorma No Aug 30 cytes informa l informa 2016 [Presen tion in tion in 12:07 ce] in source source AM Urine data data Color LILLIAN YELLOW No No No Aug 30 of informa informa informa 2017 Urine tion in tion in tion in 12:07 source source source AM data data data Glucose NEG No No No Aug 30 [Mass/vol informati informati informati 2016 ume] in on in on in on in 12:07 AM Urine by source source source Test data data data strip Ketones NEGATIV NEG mg/dL No No Aug 30 E informa informa 2016 [Presen tion in tion in 12:07 ce] in source source AM Urine data data by Automat ed test strip Mucus NEGATIV NEG No No No Aug 30 [Presen E informa informa informa 2017 ce] in tion in tion in tion in 12:07 Urine source source source AM sedimen data data data t by Light microsc opy Nitrite NEGATIV NEG No No No Aug 30 E informa informa informa 2017 [Presen tion in tion in tion in 12:07 ce] in source source source AM Urine data data data by Test strip pH of 5.0 - 8.5 No Normal No Aug 30 Urine informati informati 2017 on in on in 12:07 AM source source data data Protein NEG mg/dL High No Aug 30 [Mass/vol informati 2017 ume] in on in 12:07 AM Urine by source Automated data test strip Erythro TNTC 0 rbc/hpf No No Aug 30 cytes informa informa 2016 [Presen tion in tion in 12:07 ce] in source source AM Urine data data sedimen t by Light microsc opy Specific 1.005 - No Normal No Aug 30 gravity 1.030 informati informati 2017 of Urine on in on in 12:07 AM source source data data Epithel 5-10 0 - 5 #/hpf No No Aug 30 ial informa informa 2017 cells.s tion in tion in 12:07 quamous source source AM data data [Presen ce] in Urine sedimen t by Microsc opy high power field Urobili 0.2 NEG E.U./dL No No Aug 30 nogen informa informa 2016 [Presen tion in tion in 12:07 ce] in source source AM Urine data data by Test strip Leukocy [3 O wbc/hpf No No Aug 30 nuno wbc/hpf informa informa 2017 [#/volu ; 5 tion in tion in 12:07 me] in wbc/hpf source source AM Urine ] data data Urinalysis dipstick W Reflex Microscopic panel in Urine Observa Value Referen Units Interpr Notes Date tion ce etation Range Appeara TURBID CLEAR No No No Aug 30 nce of informa informa informa 2017 Urine tion in tion in tion in 12:07 source source source AM data data data Bilirub NEGATIV NEG No No No Aug 30 in E informa informa informa 2017 [Presen tion in tion in tion in 12:07 ce] in source source source AM Urine data data data by Test strip Erythro 3+ NEG No Abnorma No Aug 30 cytes informa l informa 2016 [Presen tion in tion in 12:07 ce] in source source AM Urine data data Color LILLIAN YELLOW No No No Aug 30 of informa informa informa 2017 Urine tion in tion in tion in 12:07 source source source AM data data data Glucose NEG No No No Aug 30 [Mass/vol informati informati informati 2017 ume] in on in on in on in 12:07 AM Urine by source source source Test data data data strip Ketones NEGATIV NEG mg/dL No No Aug 30 E informa informa 2016 [Presen tion in tion in 12:07 ce] in source source AM Urine data data by Automat ed test strip Mucus NEGATIV NEG No No No Aug 30 [Presen E informa informa informa 2016 ce] in tion in tion in tion in 12:07 Urine source source source AM sedimen data data data t by Light microsc opy Nitrite NEGATIV NEG No No No Aug 30 E informa informa informa 2016 [Presen tion in tion in tion in 12:07 ce] in source source source AM Urine data data data by Test strip pH of 5.0 - 8.5 No Normal No Aug 30 Urine informati informati 2017 on in on in 12:07 AM source source data data Protein NEG mg/dL High No Aug 30 [Mass/vol informati 2016 ume] in on in 12:07 AM Urine by source Automated data test strip Specific 1.005 - No Normal No Aug 30 gravity 1.030 informati informati 2016 of Urine on in on in 12:07 AM source source data data Urobili 0.2 NEG E.U./dL No No Aug 30 nogen informa informa 2016 [Presen tion in tion in 12:07 ce] in source source AM Urine data data by Test strip Urinalysis dipstick W Reflex Microscopic panel in Urine Observa Value Referen Units Interpr Notes Date tion ce etation Range Collected by nurse? Y Hold specimen in OE? N Appeara CLEAR CLEAR No No No Aug 26 nce of informa informa informa 2017 Urine tion in tion in tion in 9:25 PM source source source data data data Amorpho TRACE NONE No No No Aug 26 us informa informa informa 2017 sedimen tion in tion in tion in 9:25 PM t source source source [Presen data data data ce] in Urine sedimen t by Light microsc opy Bilirub NEGATIV NEG No No No Aug 26 in E informa informa informa 2017 [Presen tion in tion in tion in 9:25 PM ce] in source source source Urine data data data by Test strip Erythro NEGATIV NEG No No No Aug 26 cytes E informa informa informa 2017 [Presen tion in tion in tion in 9:25 PM ce] in source source source Urine data data data Color YELLOW YELLOW No No No Aug 26 of informa informa informa 2017 Urine tion in tion in tion in 9:25 PM source source source data data data Glucose NEG No No No Aug 26 [Mass/vol informati informati informati 2016 9:25 ume] in on in on in on in PM Urine by source source source Test data data data strip Ketones NEGATIV NEG mg/dL No No Aug 26 E informa informa 2016 [Presen tion in tion in 9:25 PM ce] in source source Urine data data by Automat ed test strip Mucus NEGATIV NEG No No No Aug 26 [Presen E informa informa informa 2017 ce] in tion in tion in tion in 9:25 PM Urine source source source sedimen data data data t by Light microsc opy Nitrite NEGATIV NEG No No No Aug 26 E informa informa informa 2016 [Presen tion in tion in tion in 9:25 PM ce] in source source source Urine data data data by Test strip pH of 5.0 - 8.5 No Normal No Aug 17 Urine informati informati 2017 9:25 on in on in PM source source data data Protein NEG mg/dL No No Aug 26 [Mass/vol informati informati 2017 9:25 ume] in on in on in PM Urine by source source Automated data data test strip Specific 1.005 - No Normal No Aug 26 gravity 1.030 informati informati 2017 9:25 of Urine on in on in PM source source data data Urobili 0.2 NEG E.U./dL No No Aug 26 nogen informa informa 2016 [Presen tion in tion in 9:25 PM ce] in source source Urine data data by Test strip Leukocyte O wbc/hpf No No Aug 26 s informati informati 2016 9:25 [#/volume on in on in PM ] in source source Urine data data Urinalysis dipstick W Reflex Microscopic panel in Urine Observa Value Referen Units Interpr Notes Date tion ce etation Range Collected by nurse? Y Hold specimen in OE? N Appeara CLEAR CLEAR No No No Aug 26 nce of informa informa informa 2016 Urine tion in tion in tion in 9:25 PM source source source data data data Bilirub NEGATIV NEG No No No Aug 26 in E informa informa informa 2016 [Presen tion in tion in tion in 9:25 PM ce] in source source source Urine data data data by Test strip Erythro NEGATIV NEG No No No Aug 26 cytes E informa informa informa 2016 [Presen tion in tion in tion in 9:25 PM ce] in source source source Urine data data data Color YELLOW YELLOW No No No Aug 26 of informa informa informa 2016 Urine tion in tion in tion in 9:25 PM source source source data data data Glucose NEG No No No Aug 26 [Mass/vol informati informati informati 2016 9:25 ume] in on in on in on in PM Urine by source source source Test data data data strip Ketones NEGATIV NEG mg/dL No No Aug 26 E informa informa 2016 [Presen tion in tion in 9:25 PM ce] in source source Urine data data by Automat ed test strip Mucus NEGATIV NEG No No No Aug 26 [Presen E informa informa informa 2016 ce] in tion in tion in tion in 9:25 PM Urine source source source sedimen data data data t by Light microsc opy Nitrite NEGATIV NEG No No No Aug 26 E informa informa informa 2016 [Presen tion in tion in tion in 9:25 PM ce] in source source source Urine data data data by Test strip pH of 5.0 - 8.5 No Normal No Aug 26 Urine informati informati 2017 9:25 on in on in PM source source data data Protein NEG mg/dL No No Aug 26 [Mass/vol informati informati 2016 9:25 ume] in on in on in PM Urine by source source Automated data data test strip Specific 1.005 - No Normal No Aug 26 gravity 1.030 informati informati 2016 9:25 of Urine on in on in PM source source data data Urobili 0.2 NEG E.U./dL No No Aug 26 nogen informa informa 2016 [Presen tion in tion in 9:25 PM ce] in source source Urine data data by Test strip Basic metabolic panel in Blood Observa Value Referen Units Interpr Notes Date tion ce etation Range Urea 7 - 18 mg/dL Low No Aug 26 nitrogen informati 2016 5:45 [Mass/vol on in AM ume] in source Serum or data Plasma Calcium 8.5 - mg/dL Normal No Aug 26 [Mass/vol 10.1 informati 2016 5:45 ume] in on in AM Serum or source Plasma data Chloride 98 - 107 mmoL/L High No Aug 26 [Moles/vo informati 2016 5:45 lume] in on in AM Serum or source Plasma data Carbon 21.0 - mmoL/L Normal No Aug 26 dioxide, 32.0 informati 2016 5:45 total on in AM [Moles/vo source lume] in data Serum or Plasma Creatinin 0.55 - mg/dL Normal No Aug 17 e 1.02 informati 2016 5:45 [Mass/vol on in AM ume] in source Serum or data Plasma Creatinin 50 - 200 ML/MIN Normal No Aug 26 e renal informati 2016 5:45 clearance on in AM source predicted data by Cockcroft -Gault formula Estimated 59- ML/MIN No REFERENCE Aug 26 informati RANGE: 2017 5:45 glomerula on in >60 AM r source ML/MIN/1. filtratio data 73 SQUARE n rate METERSIf (GF this patient is -A merican, then multiply theresult by 1.210. Glucose 74 - 106 mg/dL Normal No Aug 26 [Mass/vol informati 2016 5:45 ume] in on in AM Serum or source Plasma data Potassium 3.5 - 5.1 mmoL/L Normal No Aug 26 informati 2016 5:45 [Moles/vo on in AM lume] in source Serum or data Plasma Sodium 136 - 145 mmoL/L Normal No Aug 26 [Moles/vo informati 2016 5:45 lume] in on in AM Serum or source Plasma data CBC W Auto Differential panel in Blood Observa Value Referen Units Interpr Notes Date tion ce etation Range Basophils 0 - 0.2 K/MM3 Normal No Aug 26 informati 2016 5:45 [#/volume on in AM ] in source Blood by data Automated count Basophils 0.1 - 2.0 % Normal No Aug 26 /100 informati 2016 5:45 leukocyte on in AM s in source Blood by data Automated count Eosinophi 0.0 - 0.4 K/mm3 Normal No Aug 26 ls informati 2016 5:45 [#/volume on in AM ] in source Blood by data Automated count Eosinophi 0.1 - % Normal No Aug 26 ls/100 12.0 informati 2016 5:45 leukocyte on in AM s in source Blood by data Automated count Granulocy 1.8 - 7.8 K/mm3 Low No Aug 26 nuno informati 2016 5:45 [#/volume on in AM ] in source Blood by data Automated count Granulocy 37.0 - % Normal No Aug 26 nuno/100 80.0 informati 2016 5:45 leukocyte on in AM s in source Blood by data Automated count Hematocri 37.0 - % Low No Aug 26 t [Volume 47.0 informati 2016 5:45 on in AM Fraction] source of Blood data Hemoglobi 12.2 - g/dL Low No Aug 26 n 16.2 informati 2016 5:45 [Mass/vol on in AM ume] in source Blood data Lymphocyt 0.7 - 4.5 K/mm3 Normal No Aug 26 es informati 2016 5:45 [#/volume on in AM ] in source Unspecifi data ed specimen by Automated count Lymphocyt 10 - 50.0 % Normal No Aug 26 es informati 2016 5:45 [#/volume on in AM ] in source Unspecifi data ed specimen by Automated count Erythrocy 27 - 31.2 pg Normal No Aug 26 te mean informati 2016 5:45 corpuscul on in AM ar source hemoglobi data n [Entitic mass] Erythrocy 31.8 - g/dl Normal No Aug 26 te mean 35.4 informati 2016 5:45 corpuscul on in AM ar source hemoglobi data n concentra tion [Mass/vol ume] by Automated count Erythrocy 82.2 - fl Normal No Aug 17 te mean 97.8 informati 2016 5:45 corpuscul on in AM ar volume source [Entitic data volume] by Automated count Monocytes 0.1 - 1.0 K/mm3 Normal No Aug 17 inform2016 5:45 [#/volume on in AM ] in source Blood by data Automated count Monocytes 1.7 - 9.3 % Normal No Aug 17 /100 informati 2016 5:45 leukocyte on in AM s in source Blood by data Automated count Platelet 7.4 - fl Low No Aug 17 mean 10.4 informati 2016 5:45 volume on in AM [Entitic source volume] data in Blood by Automated count Platelets 142 - 424 K/mm3 Normal No Aug 17 informati 2016 5:45 [#/volume on in AM ] in source Blood data Erythrocy 4.2 - 5.4 M/mm3 Low No Aug 17 nuno informati 2016 5:45 [#/volume on in AM ] in source Amniotic data fluid Erythrocy 11.5 - % Normal No Aug 17 te 17.5 informati 2016 5:45 distribut on in AM ion width source [Entitic data volume] by Automated count Leukocyte 4.8 - K/MM3 Low No Aug 17 s 10.8 informati 2016 5:45 [#/volume on in AM ] in source Blood data Amylase [Enzymatic activity/volume] in Serum or Plasma Observa Value Referen Units Interpr Notes Date tion ce etation Range Amylase 25 - 115 U/L Normal No Aug 16 [Enzymati informati 2016 1:40 c on in AM activity/ source volume] data in Serum or Plasma Comprehensive metabolic 2000 panel in Serum or Plasma Observa Value Referen Units Interpr Notes Date tion ce etation Range Albumin/G 1.1 - 1.8 No Normal No Aug 16 lobulin informati informati 2016 1:40 [Mass on in on in AM ratio] in source source Serum or data data Plasma Albumin 3.4 - 5.0 gm/dL Normal No Aug 16 [Mass/vol informati 2016 1:40 ume] in on in AM Serum or source Plasma data Alkaline 46 - 116 U/L Normal No Aug 16 phosphata informati 2016 1:40 se on in AM [Enzymati source c data activity/ volume] in Serum or Plasma Bilirubin 0.2 - 1.0 mg/dL Normal No Aug 16 .total informati 2017 1:40 [Mass/vol on in AM ume] in source Serum or data Plasma Urea 7 - 18 mg/dL Normal No Aug 16 nitrogen informati 2017 1:40 [Mass/vol on in AM ume] in source Serum or data Plasma Calcium 8.5 - mg/dL Normal No Aug 25 [Mass/vol 10.1 informati 2017 1:40 ume] in on in AM Serum or source Plasma data Chloride 98 - 107 mmoL/L Normal No Aug 25 [Moles/vo informati 2017 1:40 lume] in on in AM Serum or source Plasma data Carbon 21.0 - mmoL/L Normal No Aug 25 dioxide, 32.0 informati 2017 1:40 total on in AM [Moles/vo source lume] in data Serum or Plasma Creatinin 0.55 - mg/dL Normal No Aug 25 e 1.02 informati 2017 1:40 [Mass/vol on in AM ume] in source Serum or data Plasma Creatinin 50 - 200 ML/MIN Normal No Aug 25 e renal informati 2016 1:40 clearance on in AM source predicted data by Cockcroft -Gault formula Estimated 59- ML/MIN No REFERENCE Aug 25 informati RANGE: 2017 1:40 glomerula on in >60 AM r source ML/MIN/1. filtratio data 73 SQUARE n rate METERSIf (GF this patient is -A merican, then multiply theresult by 1.210. Globulin 1.3 - 3.2 gm/dL High No Aug 25 [Mass/vol informati 2017 1:40 ume] in on in AM Serum source data Glucose 74 - 106 mg/dL Normal No Aug 16 [Mass/vol informati 2017 1:40 ume] in on in AM Serum or source Plasma data Potassium 3.5 - 5.1 mmoL/L Low No Aug 25 informati 2017 1:40 [Moles/vo on in AM lume] in source Serum or data Plasma Sodium 136 - 145 mmoL/L High No Aug 16 [Moles/vo informati 2017 1:40 lume] in on in AM Serum or source Plasma data Aspartate 15 - 37 U/L Normal No Aug 25 informati 2017 1:40 aminotran on in AM sferase source [Enzymati data c activity/ volume] in Serum or Plasma Alanine 12 - 78 U/L Normal No Aug 25 aminotran informati 2016 1:40 sferase on in AM [Enzymati source c data activity/ volume] in Serum or Plasma Protein 6.4 - 8.2 gm/dL Normal No Aug 16 [Mass/vol informati 2016 1:40 ume] in on in AM Serum or source Plasma data Lipase [Enzymatic activity/volume] in Serum or Plasma Observa Value Referen Units Interpr Notes Date tion ce etation Range Lipase 73 - 393 U/L Normal No Aug 25 [Enzymati informati 2016 1:40 c on in AM activity/ source volume] data in Serum or Plasma CBC W Auto Differential panel in Blood Observa Value Referen Units Interpr Notes Date tion ce etation Range Basophils 0 - 0.2 K/MM3 Normal No Aug 16 informati 2016 1:40 [#/volume on in AM ] in source Blood by data Automated count Basophils 0.1 - 2.0 % Normal No Aug 25 /100 informati 2016 1:40 leukocyte on in AM s in source Blood by data Automated count Eosinophi 0.0 - 0.4 K/mm3 Normal No Aug 25 ls informati 2016 1:40 [#/volume on in AM ] in source Blood by data Automated count Eosinophi 0.1 - % Normal No Aug 25 ls/100 12.0 informati 2016 1:40 leukocyte on in AM s in source Blood by data Automated count Granulocy 1.8 - 7.8 K/mm3 Normal No Aug 25 nuno informati 2016 1:40 [#/volume on in AM ] in source Blood by data Automated count Granulocy 37.0 - % Normal No Aug 25 nuno/100 80.0 informati 2016 1:40 leukocyte on in AM s in source Blood by data Automated count Hematocri 37.0 - % Normal No Aug 16 t [Volume 47.0 informati 2016 1:40 on in AM Fraction] source of Blood data Hemoglobi 12.2 - g/dL Normal No Aug 25 n 16.2 informati 2016 1:40 [Mass/vol on in AM ume] in source Blood data Lymphocyt 0.7 - 4.5 K/mm3 Normal No Aug 25 es informati 2016 1:40 [#/volume on in AM ] in source Unspecifi data ed specimen by Automated count Lymphocyt 10 - 50.0 % Normal No Esdras 16 es informati 2016 1:40 [#/volume on in AM ] in source Unspecifi data ed specimen by Automated count Erythrocy 27 - 31.2 pg Normal No Aug 16 te mean informati 2017 1:40 corpuscul on in AM ar source hemoglobi data n [Entitic mass] Erythrocy 31.8 - g/dl Normal No Aug 16 te mean 35.4 informati 2017 1:40 corpuscul on in AM ar source hemoglobi data n concentra tion [Mass/vol ume] by Automated count Erythrocy 82.2 - fl Normal No Aug 16 te mean 97.8 informati 2017 1:40 corpuscul on in AM ar volume source [Entitic data volume] by Automated count Monocytes 0.1 - 1.0 K/mm3 Normal No Aug 16 informati 2017 1:40 [#/volume on in AM ] in source Blood by data Automated count Monocytes 1.7 - 9.3 % Normal No Aug 16 /100 informati 2017 1:40 leukocyte on in AM s in source Blood by data Automated count Platelet 7.4 - fl Low No Aug 16 mean 10.4 informati 2017 1:40 volume on in AM [Entitic source volume] data in Blood by Automated count Platelets 142 - 424 K/mm3 No No Aug 16 informati informati 2017 1:40 [#/volume on in on in AM ] in source source Blood data data Erythrocy 4.2 - 5.4 M/mm3 Low No Aug 16 nuno informati 2017 1:40 [#/volume on in AM ] in source Amniotic data fluid Erythrocy 11.5 - % Normal No Aug 16 te 17.5 informati 2016 1:40 distribut on in AM ion width source [Entitic data volume] by Automated count Leukocyte 4.8 - K/MM3 Normal No Aug 16 s 10.8 informati 2016 1:40 [#/volume on in AM ] in source Blood data Comprehensive metabolic 2000 panel in Serum or Plasma Observa Value Referen Units Interpr Notes Date tion ce etation Range Albumin/G 1.1 - 1.8 No Normal No Aug 1 lobulin informati informati 2016 7:40 [Mass on in on in PM ratio] in source source Serum or data data Plasma Albumin 3.4 - 5.0 gm/dL Normal No Aug 1 [Mass/vol informati 2016 7:40 ume] in on in PM Serum or source Plasma data Alkaline 46 - 116 U/L Normal No Esdras 1 phosphata informati 2017 7:40 se on in PM [Enzymati source c data activity/ volume] in Serum or Plasma Bilirubin 0.2 - 1.0 mg/dL Normal No Esdras 1 .total informati 2017 7:40 [Mass/vol on in PM ume] in source Serum or data Plasma Urea 7 - 18 mg/dL Normal No Esdras 1 nitrogen informati 2017 7:40 [Mass/vol on in PM ume] in source Serum or data Plasma Calcium 8.5 - mg/dL Normal No Esdras 1 [Mass/vol 10.1 informati 2017 7:40 ume] in on in PM Serum or source Plasma data Chloride 98 - 107 mmoL/L Normal No Esdras 1 [Moles/vo informati 2017 7:40 lume] in on in PM Serum or source Plasma data Carbon 21.0 - mmoL/L Normal No Esdras 1 dioxide, 32.0 informati 2017 7:40 total on in PM [Moles/vo source lume] in data Serum or Plasma Creatinin 0.55 - mg/dL Normal No Esdras 1 e 1.02 informati 2017 7:40 [Mass/vol on in PM ume] in source Serum or data Plasma Creatinin 50 - 200 ML/MIN Normal No Esdras 1 e renal informati 2017 7:40 clearance on in PM source predicted data by Cockcroft -Gault formula Estimated 59- ML/MIN No REFERENCE Esdras 1 informati RANGE: 2017 7:40 glomerula on in >60 PM r source ML/MIN/1. filtratio data 73 SQUARE n rate METERSIf (GF this patient is -A merican, then multiply theresult by 1.210. Globulin 1.3 - 3.2 gm/dL High No Esdras 1 [Mass/vol informati 2017 7:40 ume] in on in PM Serum source data Glucose 74 - 106 mg/dL Normal No Esdras 1 [Mass/vol informati 2017 7:40 ume] in on in PM Serum or source Plasma data Potassium 3.5 - 5.1 mmoL/L Normal No Esdras 1 informati 2017 7:40 [Moles/vo on in PM lume] in source Serum or data Plasma Sodium 136 - 145 mmoL/L Normal No Esdras 1 [Moles/vo informati 2017 7:40 lume] in on in PM Serum or source Plasma data Aspartate 15 - 37 U/L Normal No Esdras 1 informati 2017 7:40 aminotran on in PM sferase source [Enzymati data c activity/ volume] in Serum or Plasma Alanine 12 - 78 U/L Normal No Esdras 1 aminotran informati 2016 7:40 sferase on in PM [Enzymati source c data activity/ volume] in Serum or Plasma Protein 6.4 - 8.2 gm/dL Normal No Esdras 1 [Mass/vol informati 2016 7:40 ume] in on in PM Serum or source Plasma data CBC W Auto Differential panel in Blood Observa Value Referen Units Interpr Notes Date tion ce etation Range Basophils 0 - 0.2 K/MM3 Normal No Esdras 1 informati 2016 7:40 [#/volume on in PM ] in source Blood by data Automated count Basophils 0.1 - 2.0 % Normal No Esdras 1 /100 informati 2016 7:40 leukocyte on in PM s in source Blood by data Automated count Eosinophi 0.0 - 0.4 K/mm3 Normal No Esdras 1 ls informati 2016 7:40 [#/volume on in PM ] in source Blood by data Automated count Eosinophi 0.1 - % Normal No Esdras 1 ls/100 12.0 informati 2016 7:40 leukocyte on in PM s in source Blood by data Automated count Granulocy 1.8 - 7.8 K/mm3 Normal No Esdras 1 nuno informati 2016 7:40 [#/volume on in PM ] in source Blood by data Automated count Granulocy 37.0 - % Normal No Esdras 1 nuno/100 80.0 informati 2016 7:40 leukocyte on in PM s in source Blood by data Automated count Hematocri 37.0 - % Normal No Aug 10 t [Volume 47.0 informati 2016 7:40 on in PM Fraction] source of Blood data Hemoglobi 12.2 - g/dL No No Aug 10 n 16.2 informati informati 2016 7:40 [Mass/vol on in on in PM ume] in source source Blood data data Lymphocyt 0.7 - 4.5 K/mm3 Normal No Aug 10 es informati 2016 7:40 [#/volume on in PM ] in source Unspecifi data ed specimen by Automated count Lymphocyt 10 - 50.0 % Normal No Esdras 1 es informati 2016 7:40 [#/volume on in PM ] in source Unspecifi data ed specimen by Automated count Erythrocy 27 - 31.2 pg Normal No Aug 10 te mean informati 2016 7:40 corpuscul on in PM ar source hemoglobi data n [Entitic mass] Erythrocy 31.8 - g/dl Normal No Aug 10 te mean 35.4 informati 2016 7:40 corpuscul on in PM ar source hemoglobi data n concentra tion [Mass/vol ume] by Automated count Erythrocy 82.2 - fl Normal No Aug 10 te mean 97.8 informati 2016 7:40 corpuscul on in PM ar volume source [Entitic data volume] by Automated count Monocytes 0.1 - 1.0 K/mm3 Normal No Aug 10 informati 2016 7:40 [#/volume on in PM ] in source Blood by data Automated count Monocytes 1.7 - 9.3 % Normal No Aug 1 /100 informati 2016 7:40 leukocyte on in PM s in source Blood by data Automated count Platelet 7.4 - fl Low No Aug 10 mean 10.4 informati 2016 7:40 volume on in PM [Entitic source volume] data in Blood by Automated count Platelets 142 - 424 K/mm3 No No Aug 1 informati informati 2016 7:40 [#/volume on in on in PM ] in source source Blood data data Erythrocy 4.2 - 5.4 M/mm3 Normal No Aug 1 nuno informati 2016 7:40 [#/volume on in PM ] in source Amniotic data fluid Erythrocy 11.5 - % Normal No Aug 10 te 17.5 informati 2016 7:40 distribut on in PM ion width source [Entitic data volume] by Automated count Leukocyte 4.8 - K/MM3 Normal No Aug 1 s 10.8 informati 2016 7:40 [#/volume on in PM ] in source Blood data Drugs identified in Urine by Screen method Observa Value Referen Units Interpr Notes Date tion ce etation Range Positive urine drug screen samples are stored for 7 days. Contact the Lab if confirmation of positives is needed. Ampheta NEGATIV <1000 ng/mL No No August 02 mine E informa informa 2016 [Presen tion in tion in 10:10 ce] in source source AM Urine data data by Screen method Barbitura <200 ng/mL No No August 02 nuno informati informati 2016 [Mass/vol on in on in 10:10 AM ume] in source source Urine by data data Screen method Benzodiaz 200 ng/mL ng/mL High This is August 02 epines 2016 [Mass/vol UNCONFIRM 10:10 AM ume] in ED Serum or result. Plasma by This Screen result is method for medicalpu rposes and/or treatment only. Cocaine <300 ng/g No No August 02 [Mass/vol informati informati 2016 ume] in on in on in 10:10 AM Unspecifi source source ed data data specimen Methadone <300 ng/mL No No August 02 informati informati 2016 [Mass/vol on in on in 10:10 AM ume] in source source Unspecifi data data ed specimen Opiates <300 ng/mL High This is August 02 [Mass/vol an 2016 ume] in UNCONFIRM 10:10 AM Unspecifi ED ed result. specimen This result is for medicalpu rposes and/or treatment only. Phencycli <25 ng/mL No No August 02 dine informati informati 2016 [Mass/vol on in on in 10:10 AM ume] in source source Unspecifi data data ed specimen 11-Hydr NEGATIV <50 ng/mL No No August 02 oxy E informa informa 2017 delta-9 tion in tion in 10:10 source source AM tetrahy data data drocann abinol [Presen ce] in Unspeci fied specime n Basic metabolic panel in Blood Observa Value Referen Units Interpr Notes Date tion ce etation Range Urea 7 - 18 mg/dL Low No July 31 nitrogen informati 2016 6:15 [Mass/vol on in AM ume] in source Serum or data Plasma Calcium 8.5 - mg/dL Normal No July 31 [Mass/vol 10.1 informati 2016 6:15 ume] in on in AM Serum or source Plasma data Chloride 98 - 107 mmoL/L Normal No July 31 [Moles/vo informati 2016 6:15 lume] in on in AM Serum or source Plasma data Carbon 21.0 - mmoL/L Normal No July 31 dioxide, 32.0 informati 2016 6:15 total on in AM [Moles/vo source lume] in data Serum or Plasma Creatinin 0.55 - mg/dL Normal No July 31 e 1.02 informati 2016 6:15 [Mass/vol on in AM ume] in source Serum or data Plasma Creatinin 50 - 200 ML/MIN Normal No July 31 e renal informati 2016 6:15 clearance on in AM source predicted data by Cockcroft -Gault formula Estimated 59- ML/MIN No REFERENCE July 31 informati RANGE: 2017 6:15 glomerula on in >60 AM r source ML/MIN/1. filtratio data 73 SQUARE n rate METERSIf (GF this patient is -A merican, then multiply theresult by 1.210. Glucose 74 - 106 mg/dL Normal No July 31 [Mass/vol informati 2016 6:15 ume] in on in AM Serum or source Plasma data Potassium 3.5 - 5.1 mmoL/L Normal No July 31 informati 2016 6:15 [Moles/vo on in AM lume] in source Serum or data Plasma Sodium 136 - 145 mmoL/L Normal No July 31 [Moles/vo informati 2016 6:15 lume] in on in AM Serum or source Plasma data CBC W Auto Differential panel in Blood Observa Value Referen Units Interpr Notes Date tion ce etation Range Basophils 0 - 0.2 K/MM3 Normal No July 31 informati 2016 6:15 [#/volume on in AM ] in source Blood by data Automated count Basophils 0.1 - 2.0 % Normal No July 31 informati 2017 6:15 leukocyte on in AM s in source Blood by data Automated count Eosinophi 0.0 - 0.4 K/mm3 Normal No July 31 ls informati 2016 6:15 [#/volume on in AM ] in source Blood by data Automated count Eosinophi 0.1 - % Normal No July 31 ls/100 12.0 informati 2016 6:15 leukocyte on in AM s in source Blood by data Automated count Granulocy 1.8 - 7.8 K/mm3 Low No July 31 nuno informati 2016 6:15 [#/volume on in AM ] in source Blood by data Automated count Granulocy 37.0 - % Normal No July 31 nuno/100 80.0 informati 2016 6:15 leukocyte on in AM s in source Blood by data Automated count Hematocri 37.0 - % Low No July 31 t [Volume 47.0 informati 2016 6:15 on in AM Fraction] source of Blood data Hemoglobi 12.2 - g/dL Low No July 31 n 16.2 informati 2016 6:15 [Mass/vol on in AM ume] in source Blood data Lymphocyt 0.7 - 4.5 K/mm3 Normal No July 31 es informati 2016 6:15 [#/volume on in AM ] in source Unspecifi data ed specimen by Automated count Lymphocyt 10 - 50.0 % Normal No July 31 es informati 2016 6:15 [#/volume on in AM ] in source Unspecifi data ed specimen by Automated count Erythrocy 27 - 31.2 pg Normal No July 31 te mean informati 2016 6:15 corpuscul on in AM ar source hemoglobi data n [Entitic mass] Erythrocy 31.8 - g/dl Normal No July 31 te mean 35.4 informati 2016 6:15 corpuscul on in AM ar source hemoglobi data n concentra tion [Mass/vol ume] by Automated count Erythrocy 82.2 - fl Normal No July 31 te mean 97.8 informati 2016 6:15 corpuscul on in AM ar volume source [Entitic data volume] by Automated count Monocytes 0.1 - 1.0 K/mm3 Normal No July 31 informati 2016 6:15 [#/volume on in AM ] in source Blood by data Automated count Monocytes 1.7 - 9.3 % Normal No July 31 /100 informati 2016 6:15 leukocyte on in AM s in source Blood by data Automated count Platelet 7.4 - fl Low No July 31 mean 10.4 informati 2016 6:15 volume on in AM [Entitic source volume] data in Blood by Automated count Platelets 142 - 424 K/mm3 Normal No July 31 informati 2016 6:15 [#/volume on in AM ] in source Blood data Erythrocy 4.2 - 5.4 M/mm3 Low No July 31 nuno informati 2016 6:15 [#/volume on in AM ] in source Amniotic data fluid Erythrocy 11.5 - % Normal No July 31 te 17.5 informati 2016 6:15 distribut on in AM ion width source [Entitic data volume] by Automated count Leukocyte 4.8 - K/MM3 Low No July 31 s 10.8 informati 2016 6:15 [#/volume on in AM ] in source Blood data Basic metabolic panel in Blood Observa Value Referen Units Interpr Notes Date tion ce etation Range Urea 7 - 18 mg/dL Normal No July 27 nitrogen informati 2016 6:30 [Mass/vol on in AM ume] in source Serum or data Plasma Calcium 8.5 - mg/dL Normal No July 27 [Mass/vol 10.1 informati 2016 6:30 ume] in on in AM Serum or source Plasma data Chloride 98 - 107 mmoL/L Normal No July 27 [Moles/vo informati 2016 6:30 lume] in on in AM Serum or source Plasma data Carbon 21.0 - mmoL/L Normal No July 27 dioxide, 32.0 informati 2016 6:30 total on in AM [Moles/vo source lume] in data Serum or Plasma Creatinin 0.55 - mg/dL Normal No July 27 e 1.02 informati 2016 6:30 [Mass/vol on in AM ume] in source Serum or data Plasma Creatinin 50 - 200 ML/MIN Normal No July 27 e renal informati 2016 6:30 clearance on in AM source predicted data by Cockcroft -Gault formula Estimated 59- ML/MIN No REFERENCE July 27 informati RANGE: 2017 6:30 glomerula on in >60 AM r source ML/MIN/1. filtratio data 73 SQUARE n rate METERSIf (GF this patient is -A merican, then multiply theresult by 1.210. Glucose 74 - 106 mg/dL Normal No July 27 [Mass/vol informati 2016 6:30 ume] in on in AM Serum or source Plasma data Potassium 3.5 - 5.1 mmoL/L Normal No July 27 informati 2016 6:30 [Moles/vo on in AM lume] in source Serum or data Plasma Sodium 136 - 145 mmoL/L Normal No July 27 [Moles/vo informati 2016 6:30 lume] in on in AM Serum or source Plasma data CBC W Auto Differential panel in Blood Observa Value Referen Units Interpr Notes Date tion ce etation Range Basophils 0 - 0.2 K/MM3 Normal No July 27 informati 2016 6:30 [#/volume on in AM ] in source Blood by data Automated count Basophils 0.1 - 2.0 % Normal No July 27 /100 informati 2016 6:30 leukocyte on in AM s in source Blood by data Automated count Eosinophi 0.0 - 0.4 K/mm3 Normal No July 27 ls informati 2016 6:30 [#/volume on in AM ] in source Blood by data Automated count Eosinophi 0.1 - % Normal No July 27 ls/100 12.0 informati 2016 6:30 leukocyte on in AM s in source Blood by data Automated count Granulocy 1.8 - 7.8 K/mm3 Normal No July 27 nuno informati 2016 6:30 [#/volume on in AM ] in source Blood by data Automated count Granulocy 37.0 - % Normal No July 27 nuno/100 80.0 informati 2016 6:30 leukocyte on in AM s in source Blood by data Automated count Hematocri 37.0 - % Low No July 27 t [Volume 47.0 informati 2016 6:30 on in AM Fraction] source of Blood data Hemoglobi 12.2 - g/dL Low No July 27 n 16.2 informati 2016 6:30 [Mass/vol on in AM ume] in source Blood data Lymphocyt 0.7 - 4.5 K/mm3 Normal No July 27 es informati 2016 6:30 [#/volume on in AM ] in source Unspecifi data ed specimen by Automated count Lymphocyt 10 - 50.0 % Normal No July 27 es informati 2016 6:30 [#/volume on in AM ] in source Unspecifi data ed specimen by Automated count Erythrocy 27 - 31.2 pg Normal No July 27 te mean informati 2016 6:30 corpuscul on in AM ar source hemoglobi data n [Entitic mass] Erythrocy 31.8 - g/dl Normal No July 27 te mean 35.4 informati 2016 6:30 corpuscul on in AM ar source hemoglobi data n concentra tion [Mass/vol ume] by Automated count Erythrocy 82.2 - fl Normal July 27 te mean 97.8 informati 2016 6:30 corpuscul on in AM ar volume source [Entitic data volume] by Automated count Monocytes 0.1 - 1.0 K/mm3 Normal No July 27 informati 2016 6:30 [#/volume on in AM ] in source Blood by data Automated count Monocytes 1.7 - 9.3 % Normal No July 27 / informati 2016 6:30 leukocyte on in AM s in source Blood by data Automated count Platelet 7.4 - fl Low No July 27 mean 10.4 2016 6:30 volume on in AM [Entitic source volume] data in Blood by Automated count Platelets 142 - 424 K/mm3 Normal No July 272016 6:30 [#/volume on in AM ] in source Blood data Erythrocy 4.2 - 5.4 M/mm3 Low No July 27 nuno ati 2016 6:30 [#/volume on in AM ] in source Amniotic data fluid Erythrocy 11.5 - % Normal No July 27 te 17.5 informati 2016 6:30 distribut on in AM ion width source [Entitic data volume] by Automated count Leukocyte 4.8 - K/MM3 Low No July 27 s 10.8 ati 2016 6:30 [#/volume on in AM ] in source Blood data Erythrocyte sedimentation rate by Westergren method Observa Value Referen Units Interpr Notes Date tion ce etation Range Erythrocy 0 - 20 mm/hr High No July 26 te 2016 8:47 sedimenta on in PM tion rate source by data Westergre n method Urinalysis dipstick W Reflex Microscopic panel in Urine Observa Value Referen Units Interpr Notes Date tion ce etation Range Appeara CLEAR CLEAR No No No July 26 nce of informa informa informa 2016 Urine tion in tion in tion in 8:47 PM source source source data data data Bacteri TRACE O No No No July 26 a informa informa informa 2016 [Presen tion in tion in tion in 8:47 PM ce] in source source source Urine data data data sedimen t by Light microsc opy Bilirub NEGATIV NEG No No No July 26 in E informa informa informa 2016 [Presen tion in tion in tion in 8:47 PM ce] in source source source Urine data data data by Test strip Erythro 3+ NEG No Abnorma No July 26 cytes informa l informa 2016 [Presen tion in tion in 8:47 PM ce] in source source Urine data data Color YELLOW YELLOW No No No July 26 of informa informa informa 2016 Urine tion in tion in tion in 8:47 PM source source source data data data Casts OCC NONE #/lpf No No July 26 [Pres informa informa 2016 ce] in tion in tion in 8:47 PM Urine source source sedimen data data t by Light microsc opy Glucose NEG No No No July 26 [Mass/vol informati informati informati 2016 8:47 ume] in on in on in on in PM Urine by source source source Test data data data strip Ketones NEGATIV NEG mg/dL No No July 26 E informa informa 2016 [Presen tion in tion in 8:47 PM ce] in source source Urine data data by Automat ed test strip Mucus TRACE NEG No Abnorma No July 26 [Presen informa l informa 2016 ce] in tion in tion in 8:47 PM Urine source source sedimen data data t by Light microsc opy Nitrite NEGATIV NEG No No No July 26 E informa informa informa 2016 [Presen tion in tion in tion in 8:47 PM ce] in source source source Urine data data data by Test strip pH of 5.0 - 8.5 No Normal No July 26 Urine informati informati 2016 8:47 on in on in PM source source data data Protein NEG mg/dL No No July 26 [Mass/vol informati informati 2016 8:47 ume] in on in on in PM Urine by source source Automated data data test strip Erythro 5-10 0 rbc/hpf No No July 26 cytes informa informa 2016 [Presen tion in tion in 8:47 PM ce] in source source Urine data data sedimen t by Light microsc opy Specific 1.005 - No Normal No July 26 gravity 1.030 informati informati 2016 8:47 of Urine on in on in PM source source data data Epithel 3-5 0 - 5 #/hpf No No July 26 ial informa informa 2016 cells.s tion in tion in 8:47 PM quamous source source data data [Presen ce] in Urine sedimen t by Microsc opy high power field Urobili 0.2 NEG E.U./dL No No July 26 nogen informa informa 2016 [Presen tion in tion in 8:47 PM ce] in source source Urine data data by Test strip Leukocyte O wbc/hpf No No July 26 s informati informati 2016 8:47 [#/volume on in on in PM ] in source source Urine data data CRP Observa Value Referen Units Interpr Notes Date tion ce etation Range CRP 0.0 - 0.9 MG/DL High No July 26 informati 2016 8:47 on in PM source data CBC W Auto Differential panel in Blood Observa Value Referen Units Interpr Notes Date tion ce etation Range Basophils 0 - 0.2 K/MM3 Normal No July 26 informati 2016 8:47 [#/volume on in PM ] in source Blood by data Automated count Basophils 0.1 - 2.0 % Normal No July 26 informati 2016 8:47 leukocyte on in PM s in source Blood by data Automated count Eosinophi 0.0 - 0.4 K/mm3 Normal No July 26 ls informati 2016 8:47 [#/volume on in PM ] in source Blood by data Automated count Eosinophi 0.1 - % Normal No July 26 ls/100 12.0 informati 2016 8:47 leukocyte on in PM s in source Blood by data Automated count Granulocy 1.8 - 7.8 K/mm3 Normal No July 26 nuno informati 2016 8:47 [#/volume on in PM ] in source Blood by data Automated count Granulocy 37.0 - % Normal No July 26 nuno/100 80.0 informati 2016 8:47 leukocyte on in PM s in source Blood by data Automated count Hematocri 37.0 - % Low No July 26 t [Volume 47.0 informati 2016 8:47 on in PM Fraction] source of Blood data Hemoglobi 12.2 - g/dL Low No July 26 n 16.2 informati 2016 8:47 [Mass/vol on in PM ume] in source Blood data Lymphocyt 0.7 - 4.5 K/mm3 Normal No July 26 es informati 2016 8:47 [#/volume on in PM ] in source Unspecifi data ed specimen by Automated count Lymphocyt 10 - 50.0 % Normal No July 26 es informati 2016 8:47 [#/volume on in PM ] in source Unspecifi data ed specimen by Automated count Erythrocy 27 - 31.2 pg Normal No July 26 te mean informati 2016 8:47 corpuscul on in PM ar source hemoglobi data n [Entitic mass] Erythrocy 31.8 - g/dl Normal No July 26 te mean 35.4 informati 2016 8:47 corpuscul on in PM ar source hemoglobi data n concentra tion [Mass/vol ume] by Automated count Erythrocy 82.2 - fl Normal No July 26 te mean 97.8 informati 2016 8:47 corpuscul on in PM ar volume source [Entitic data volume] by Automated count Monocytes 0.1 - 1.0 K/mm3 Normal No July 262016 8:47 [#/volume on in PM ] in source Blood by data Automated count Monocytes 1.7 - 9.3 % Normal No July 26 / informati 2016 8:47 leukocyte on in PM s in source Blood by data Automated count Platelet 7.4 - fl Low No July 26 mean 10.4 informati 2016 8:47 volume on in PM [Entitic source volume] data in Blood by Automated count Platelets 142 - 424 K/mm3 Normal No July 26 informati 2016 8:47 [#/volume on in PM ] in source Blood data Erythrocy 4.2 - 5.4 M/mm3 Low No July 26 nuno informati 2016 8:47 [#/volume on in PM ] in source Amniotic data fluid Erythrocy 11.5 - % Normal July 26 te 17.5 informati 2016 8:47 distribut on in PM ion width source [Entitic data volume] by Automated count Leukocyte 4.8 - K/MM3 Normal No July 26 s 10.8 informati 2016 8:47 [#/volume on in PM ] in source Blood data Amylase [Enzymatic activity/volume] in Serum or Plasma Observa Value Referen Units Interpr Notes Date tion ce etation Range Amylase 25 - 115 U/L Normal No July 26 [Enzymati informati 2016 8:47 c on in PM activity/ source volume] data in Serum or Plasma Comprehensive metabolic 2000 panel in Serum or Plasma Observa Value Referen Units Interpr Notes Date tion ce etation Range Albumin/G 1.1 - 1.8 No Normal No July 26 lobulin informati informati 2016 8:47 [Mass on in on in PM ratio] in source source Serum or data data Plasma Albumin 3.4 - 5.0 gm/dL Normal No July 26 [Mass/vol informati 2016 8:47 ume] in on in PM Serum or source Plasma data Alkaline 46 - 116 U/L Normal No July 26 phosphata informati 2016 8:47 se on in PM [Enzymati source c data activity/ volume] in Serum or Plasma Bilirubin 0.2 - 1.0 mg/dL Low No July 26 .total informati 2016 8:47 [Mass/vol on in PM ume] in source Serum or data Plasma Urea 7 - 18 mg/dL Normal No July 26 nitrogen informati 2016 8:47 [Mass/vol on in PM ume] in source Serum or data Plasma Calcium 8.5 - mg/dL Normal No July 26 [Mass/vol 10.1 informati 2016 8:47 ume] in on in PM Serum or source Plasma data Chloride 98 - 107 mmoL/L Normal No July 26 [Moles/vo informati 2016 8:47 lume] in on in PM Serum or source Plasma data Carbon 21.0 - mmoL/L Normal No July 26 dioxide, 32.0 informati 2016 8:47 total on in PM [Moles/vo source lume] in data Serum or Plasma Creatinin 0.55 - mg/dL Normal No July 26 e 1.02 informati 2016 8:47 [Mass/vol on in PM ume] in source Serum or data Plasma Creatinin 50 - 200 ML/MIN Normal No July 26 e renal informati 2016 8:47 clearance on in PM source predicted data by Cockcroft -Gault formula Estimated 59- ML/MIN No REFERENCE July 26 informati RANGE: 2017 8:47 glomerula on in >60 PM r source ML/MIN/1. filtratio data 73 SQUARE n rate METERSIf (GF this patient is -A merican, then multiply theresult by 1.210. Globulin 1.3 - 3.2 gm/dL Normal No July 26 [Mass/vol informati 2016 8:47 ume] in on in PM Serum source data Glucose 74 - 106 mg/dL High No July 26 [Mass/vol informati 2016 8:47 ume] in on in PM Serum or source Plasma data Potassium 3.5 - 5.1 mmoL/L Normal POTASSIUM July 26July 8:47 [Moles/vo SLIGHTLY PM lume] in FALSELY Serum or ELEVATED Plasma DUE TO SLIGHTLIP EMIA Sodium 136 - 145 mmoL/L Normal No July 26 [Moles/vo informati 2016 8:47 lume] in on in PM Serum or source Plasma data Aspartate 15 - 37 U/L Normal AST JulyJuly 262016 8:47 aminotran SLIGHTLY PM sferase FALSELY [Enzymati ELEVATED c DUE TO activity/ SLIGHT volume] LIPEMIA in Serum or Plasma Alanine 12 - 78 U/L Normal No July 26 aminotran informati 2016 8:47 sferase on in PM [Enzymati source c data activity/ volume] in Serum or Plasma Protein 6.4 - 8.2 gm/dL Normal No July 26 [Mass/vol informati 2016 8:47 ume] in on in PM Serum or source Plasma data Lipase [Enzymatic activity/volume] in Serum or Plasma Observa Value Referen Units Interpr Notes Date tion ce etation Range Lipase 73 - 393 U/L Normal No July 26 [Enzymati informati 2016 8:47 c on in PM activity/ source volume] data in Serum or Plasma Urinalysis dipstick W Reflex Microscopic panel in Urine Observa Value Referen Units Interpr Notes Date tion ce etation Range Appeara CLEAR CLEAR No No No July 26 nce of informa informa informa 2016 Urine tion in tion in tion in 8:47 PM source source source data data data Bilirub NEGATIV NEG No No No July 26 in E informa informa informa 2016 [Presen tion in tion in tion in 8:47 PM ce] in source source source Urine data data data by Test strip Erythro 3+ NEG No Abnorma No July 26 cytes informa l informa 2016 [Presen tion in tion in 8:47 PM ce] in source source Urine data data Color YELLOW YELLOW No No No July 26 of informa informa informa 2016 Urine tion in tion in tion in 8:47 PM source source source data data data Glucose NEG No No No July 26 [Mass/vol informati informati informati 2016 8:47 ume] in on in on in on in PM Urine by source source source Test data data data strip Ketones NEGATIV NEG mg/dL No No July 26 E informa informa 2016 [Presen tion in tion in 8:47 PM ce] in source source Urine data data by Automat ed test strip Mucus TRACE NEG No Abnorma No July 26 [Presen informa l informa 2016 ce] in tion in tion in 8:47 PM Urine source source sedimen data data t by Light microsc opy Nitrite NEGATIV NEG No No No July 26 E informa informa informa 2016 [Presen tion in tion in tion in 8:47 PM ce] in source source source Urine data data data by Test strip pH of 5.0 - 8.5 No Normal No July 26 Urine informati informati 2016 8:47 on in on in PM source source data data Protein NEG mg/dL No No July 26 [Mass/vol informati informati 2016 8:47 ume] in on in on in PM Urine by source source Automated data data test strip Specific 1.005 - No Normal No July 26 gravity 1.030 informati informati 2016 8:47 of Urine on in on in PM source source data data Urobili 0.2 NEG E.U./dL No No July 26 nogen informa informa 2016 [Presen tion in tion in 8:47 PM ce] in source source Urine data data by Test strip Basic metabolic panel in Blood Observa Value Referen Units Interpr Notes Date tion ce etation Range Urea 7 - 18 mg/dL Normal No July 24 nitrogen informati 2016 6:05 [Mass/vol on in AM ume] in source Serum or data Plasma Calcium 8.5 - mg/dL Low No July 24 [Mass/vol 10.1 informati 2016 6:05 ume] in on in AM Serum or source Plasma data Chloride 98 - 107 mmoL/L Normal No July 24 [Moles/vo informati 2016 6:05 lume] in on in AM Serum or source Plasma data Carbon 21.0 - mmoL/L Normal No July 24 dioxide, 32.0 informati 2016 6:05 total on in AM [Moles/vo source lume] in data Serum or Plasma Creatinin 0.55 - mg/dL No No July 24 e 1.02 informati informati 2016 6:05 [Mass/vol on in on in AM ume] in source source Serum or data data Plasma Creatinin 50 - 200 ML/MIN No No July 24 e renal informati informati 2016 6:05 clearance on in on in AM source source predicted data data by Cockcroft -Gault formula Estimated 59- ML/MIN No REFERENCE July 24 informati RANGE: 2017 6:05 glomerula on in >60 AM r source ML/MIN/1. filtratio data 73 SQUARE n rate METERSIf (GF this patient is -A merican, then multiply theresult by 1.210. Glucose 74 - 106 mg/dL Normal No July 24 [Mass/vol informati 2016 6:05 ume] in on in AM Serum or source Plasma data Potassium 3.5 - 5.1 mmoL/L Normal No July 24 inform2016 6:05 [Moles/vo on in AM lume] in source Serum or data Plasma Sodium 136 - 145 mmoL/L Normal No July 24 [Moles/vo informati 2016 6:05 lume] in on in AM Serum or source Plasma data CBC W Auto Differential panel in Blood Observa Value Referen Units Interpr Notes Date tion ce etation Range Basophils 0 - 0.2 K/MM3 Normal No July 24 informati 2016 6:05 [#/volume on in AM ] in source Blood by data Automated count Basophils 0.1 - 2.0 % Normal No July 24 / informati 2016 6:05 leukocyte on in AM s in source Blood by data Automated count Eosinophi 0.0 - 0.4 K/mm3 Normal No July 24 ls informati 2016 6:05 [#/volume on in AM ] in source Blood by data Automated count Eosinophi 0.1 - % Normal No July 24 ls/100 12.0 informati 2016 6:05 leukocyte on in AM s in source Blood by data Automated count Granulocy 1.8 - 7.8 K/mm3 Normal No July 24 nuno informati 2016 6:05 [#/volume on in AM ] in source Blood by data Automated count Granulocy 37.0 - % Normal No July 24 nuno/100 80.0 informati 2016 6:05 leukocyte on in AM s in source Blood by data Automated count Hematocri 37.0 - % Low No July 24 t [Volume 47.0 informati 2016 6:05 on in AM Fraction] source of Blood data Hemoglobi 12.2 - g/dL Low No July 24 n 16.2 informati 2016 6:05 [Mass/vol on in AM ume] in source Blood data Lymphocyt 0.7 - 4.5 K/mm3 Normal No July 24 es informati 2016 6:05 [#/volume on in AM ] in source Unspecifi data ed specimen by Automated count Lymphocyt 10 - 50.0 % Normal No July 24 es informati 2016 6:05 [#/volume on in AM ] in source Unspecifi data ed specimen by Automated count Erythrocy 27 - 31.2 pg Normal No July 24 te mean informati 2016 6:05 corpuscul on in AM ar source hemoglobi data n [Entitic mass] Erythrocy 31.8 - g/dl Normal No July 24 te mean 35.4 informati 2016 6:05 corpuscul on in AM ar source hemoglobi data n concentra tion [Mass/vol ume] by Automated count Erythrocy 82.2 - fl Normal No July 24 te mean 97.8 informati 2016 6:05 corpuscul on in AM ar volume source [Entitic data volume] by Automated count Monocytes 0.1 - 1.0 K/mm3 Normal No July 24 informati 2016 6:05 [#/volume on in AM ] in source Blood by data Automated count Monocytes 1.7 - 9.3 % Normal No July 24 / informati 2017 6:05 leukocyte on in AM s in source Blood by data Automated count Platelet 7.4 - fl Low No July 24 mean 10.4 informati 2017 6:05 volume on in AM [Entitic source volume] data in Blood by Automated count Platelets 142 - 424 K/mm3 Normal No July 24 informati 2017 6:05 [#/volume on in AM ] in source Blood data Erythrocy 4.2 - 5.4 M/mm3 Low No July 24 nuno informati 2017 6:05 [#/volume on in AM ] in source Amniotic data fluid Erythrocy 11.5 - % Normal No July 24 te 17.5 informati 2017 6:05 distribut on in AM ion width source [Entitic data volume] by Automated count Leukocyte 4.8 - K/MM3 Normal No July 24 s 10.8 informati 2016 6:05 [#/volume on in AM ] in source Blood data
--- NOTE | 2017-01-19 21:13 | Emergency Room Report ---
History of Present Illness Time Seen by [id number] Presenting Problem in Triage Pt arrived:Walked Presenting Problem:URINATED 3 TIMES IN LAST 4 DAYS; HEADACHE; PROBLEMS URINATING ; SORE THROAT, COUGH, CONGESTION; FEVER; PASSED OUT X1; RIGHT FLANK PAIN Onset of symptoms date/time:01/15/1708/27/1199 or onset unknown for: Treatment Prior to Arrival: INTAKE NURSE Provided by: Sepsis Risk Assessment: Temp: 98.3 B/P: 136/85 MAP: 102 Pulse: 101 Resp: 18 Recent fever? N Clinical Suspician of Infection? N Mental Status: 1 - Regular (Normal Baseline) Sepsis Risk:Low Sepsis Risk Have you (or family members/close friends) recently traveled outside the [place]? N If Yes, where/when: Have you had exposure to infectious disease within the past month? N TB? Other? Specify: Source patient, RN notes reviewed, old records Exam Limitations no limitations Comment pt with flank pain with dec urination and dysuria with nausea and dec po intake with sl fever but no rash or trauma Cardiac Chest Pain Chest pain indicative of cardiac No Timing/Duration this evening Severity moderate ALLERGIES Coded Allergies: Tetanus Vaccines and Toxoid (TETANUS VACCINES & TOXOID) (Severe, 09/01/16) butorphanol (Severe, 09/01/16) tolterodine (Severe, 09/01/16) amitriptyline (Mild, 09/01/16) gabapentin (Mild, 09/01/16) prochlorperazine (Mild, 09/01/16) ketorolac (From TORADOL) (09/01/16) Home Medications Reported Medications Esomeprazole Magnesium (Nexium 40MG Cap) 40 MG PO DAILY Sumatriptan Succinate (Imitrex) 100 MG PO DAILYP PRN HEADACHE VENLAFAXINE HCL (Venlafaxine Hydrochloride) 0.5 TABLET PO BID Pentosan Polysulfate Sodium (Elmiron 100MG Capsule) 100 MG PO TID #90 CAPSULE Cyclobenzaprine Hcl 10 MG PO TID PRN MUSCLE SPASMS #90 TAB Alprazolam 0.5 MG PO BID #90 TAB CETIRIZINE HCL (Zyrtec) 10 MG PO DAILY Pregabalin (Lyrica 75MG) 75 MG PO QHS #30 Zolpidem Tartrate (Zolpidem 10MG) 10 MG PO QHS #30 PROMETHAZINE HCL (Phenergan 25MG Tab (Geq)) 25 MG PO Q6HP PRN N/V #20 History Medical History General CAD? No Angina: Yes [place]: No Hypertension? No Hyperlipidemia? No CHF? No DVT? No PE? No COPD? No Asthma? No Anemia? No GERD? Yes Gastric ulcers? No GI Bleed? No Hernia? Yes Thyroid Problems? No Hypothyroidism? No CVA? No Seizures? No Diabetes? No Renal Insuffiency? No End Stage Renal Disease? No UTI? Yes Stones? Yes BPH? No GB Disease: No Nephritic Syndrome? No Asplenia? No Hepatitis? No Sickle Cell Disease? No Arthritis? No Migraines? Yes Cataracts? No Glaucoma? No MRSA? Yes HIV? No TB? No Anxiety? No Depression? No Cancer? No More? 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 Respiratory denies cough, denies shortness of breath, denies wheezing Cardiovascular denies chest pain, denies palpitations, denies syncope Gastrointestinal see HPI, nausea, vomiting Genitourinary see HPI, dysuria, hesitancy. denies: abnormal vaginal bleeding, hematuria. Musculoskeletal denies back pain, denies joint pain, denies joint swelling, denies neck pain Skin denies rash Psychiatric/Neurological denies headache, denies seizure Physical Exam Vital Signs Vital Signs Date Time Temp Pulse Resp B/P Pulse O2 O2 Flow FiO2 Ox Delivery Rate 01/20 2224 97.9 80 20 131/86 100 01/19 2209 18 01/19 2042 98.3 101 18 136/85 97 - WBC >12,000 or <4,000 or 10% bands? 2 or more SIRS Criteria Met? B/P:131/86 MAP:102 Creatinine >2.0? UA output<0.5ml/kg/hr for 2 hrs? Platelet count >100,000? Lactate >2.0mmol/1? INR >1.2 or PTT > than 60 sec? Evidence of Organ Dysfunction? Provider documented clinical suspician of infection? N Sepsis Criteria Count: 1 Sepsis Risk: Low Sepsis Risk General Appearance no apparent distress Eye Exam - bilateral eye PERRL, bilateral eye EOMI Ear, Nose, Throat normal ENT inspection Neck supple Respiratory Status No: respiratory distress. Lung Sounds bilateral: lungs clear. 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 No Results/Orders Laboratory Tests 01/19/172053: Creatine Kinase 98, CK-MB (CK-2) Rel Index 0.6, CK and CKMB Interp 0.6, Troponin I < 0.02 01/19/172053: Sodium 138, Potassium 3.5, Chloride 103, Carbon Dioxide 28, BUN 13, Creatinine 1.0, Estimated Creat Clear 78, Estimated GFR (MDRD) 58 L, Glucose 91, Calcium 9.1, Total Bilirubin 0.2, AST 20, ALT 29, Alkaline Phosphatase 87, Total Protein 7.3, Albumin 4.2, Globulin 3.1, Albumin/Globulin Ratio 1.4, WBC 4.7 L, RBC 4.06 L, Hgb 11.7 L, Hct 35.2 L, MCV 86.9, RDW 13.7, Plt Count 312, MPV 7.2 L, Gran % 46.9, Gran # 2.2, Lymphocytes % 42.5, Monocytes % 7.0, Eosinophils % 2.8, Basophils % 0.9, Lymphocytes # 2.0, Monocytes # 0.3, Eosinophils # 0.1, Basophils # 0.0, PUBS MCHC 33.3, MCH 28.9, Urine Color DK YELLOW, Urine Appearance SL CLOUDY, Urine pH 5.5, Ur Specific Brook 1.025, Urine Protein 1+ H, Urine Ketones TRACE H, Urine Blood 3+ H, Urine Nitrate POSITIVE H, Urine Bilirubin NEGATIVE, Urine Urobilinogen 0.2, Ur Leukocyte Esterase TRACE H, Urine RBC 3-5, Urine WBC 10-20, Ur Squamous Epith Cells 10-20, Calcium Oxalate Crystal 3+, Urine Bacteria 3+, Urine Glucose NEGATIVE Current Medication Orders Sig/Kayleigh Start time Last Medication Dose Route Stop Time Status Admin Ertapenem 1 GM ONCE ONE 01/19 2215 AC 01/19 Sodium Chloride 50 ML IV 01/19 Ertapenem 0 .STK-MED ONE 01/19 2215 DC .ROUTE Sodium Chloride 50 ML .STK-MED ONE 01/19 2215 DC IV Promethazine HCl 0 .STK-MED ONE 01/19 2202 DCr .ROUTE Sodium Chloride 1,000 ML .STK-MED ONE 01/19 2202 DC IV Hydromorphone HCl 0 .STK-MED ONE 01/19 2201 DCr .ROUTE Sodium Chloride 25 ML .STK-MED ONE 01/19 2201 DC IV Hydromorphone HCl 1 MG ONCE ONE 01/19 2200 DCr 01/19 IV 01/19 Promethazine HCl 12.5 MG ONCE ONE 01/19 2200 DCr 01/19 IV 01/19 2201 221 Sodium Chloride 1,000 ML .Q4H 01/19 2200 AC 01/19 IV 01/20 0159 2210 Sodium Chloride 10 ML PRN PRN 01/19 2200 AC IV 01/20 215 Sodium Chloride 25 ML ONCE ONE 01/19 2200 DC 01/19 IV 01/19 2214 2210 Sodium Chloride 10 ML PRN PRN 01/19 2100 AC IV 01/20 2100 Orders Procedure Date/time Status DIET-NOTHING BY MOUTH 01/20 B Active Decision to admit 01/[address] ABD & PELVIS W/O CONTRAST 01/19 2119 Active 12 LEAD EKG-BRE (INITIAL) 01/19 2107 Active ELECTROCARDIOGRAM REQUEST 01/[address] ABD/PELVIS REQ 01/19 2107 Complete CHEST(2 VIEWS-NOT PORTABLE) 01/19 2107 Active CARDIAC ENZYMES 01/19 2107 Complete CULTURE, BLOOD 01/20 2104 Active URINALYSIS/COMPLETE 01/20 2104 Complete COMPLETE METABOLIC PANEL 01/20 2104 Complete CBC WITH AUTO DIFF 01/20 2104 Complete IV SALINE LOCK 01/19 2100 Active CULTURE, URINE 01/19 2054 Active XRAY/CT/US XRAY/CT/US 1 XRAY chest XR interpretation by reviewed by me Xray Results normal/NAD XRAY/CT/US 2 CT abdomen, pelvis CT interpretation by discussed w/radiologist Time results known: 2233 CT Results abnormal (se report) Departure Departure Time of Disposition 2230 Disposition Still a Patient Clinical Impression Primary Impression: UTI (urinary tract infection) Qualifiers: Urinary tract infection type: acute cystitis Hematuria presence: without hematuria Qualified Code: N30.00 - Acute cystitis without hematuria Condition STABLE Referrals Anne PRATT,Jone Lopez (Family) ED Critical Care Critical Care No at 2237
[2017-01-19 21:19] LABS: HEMOGLOBIN 11.7 g/dL (12.2-16.2); LYMPH % 42.5 % (10-50.0)
[2017-01-19 21:35] LABS: URINE BILIRUBIN - DIPSTICK NEGATIVE (NEG); URINE BLOOD 3+ (NEG)
--- OUTSIDE RECORDS SUMMARY | 2017-01-19 22:38 | External Medical Summary Rpt | CCD ---
Author Author , ASAD KAMARA Address Unknown Phone [email or web address] Immunization Name Date Rout CVX Reac Dose [...]
--- OUTSIDE RECORDS SUMMARY | 2017-01-19 22:38 | External Medical Summary Rpt | CCD ---
Author Author , ASAD KAMARA Address Unknown Phone [email or web address] Immunization Name Date Rout CVX Reac Dose [...]
--- OUTSIDE RECORDS SUMMARY | 2017-01-19 22:38 | External Medical Summary Rpt | CCD ---
Author Author , ASAD Organization ASAD Address Unknown Phone [email or web address] Providers Care Steel Fitter Name Role Phone Olvin Austin MD, Unavailable Unavailable Olvin Jose MD, Unavailable Unavailable Socorro Jose MD Purpose Continuity of Care Document - 12-20-2012 through 2016 Problems Code Diagnosis DOS Provider Status 487.1 487.1 FLU W 03-02-2013 [place] RESP [facility]IFEST Hospital [facility] V14.8 V14.8 03-02-2013 [place] HX-DRUG [facility] ALLERGY [facility] Hospital 053.9 053.9 02-14-2013 [place] HERPES [facility] ZOSTER NOS Hospital 079.99 079.99 02-14-2013 [place] VIRAL [facility] INFECTION Hospital NOS 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, NOT SPCF ACUTE OR CHRONIC N20.0 CALCULUS OF KIDNEY N23 UNSPECIFIED RENAL COLIC N39.0 URINARY TRACT INFECTION, SITE NOT SPECIFIED R10.9 UNSPECIFIED ABDOMINAL PAIN R31.9 HEMATURIA, UNSPECIFIED Z79.899 OTHER RESIDENTIAL (CURRENT) DRUG THERAPY Allergies, Adverse Reactions, Alerts [...] ng CE 42 13 er TA 1 ID Ac N- ti CA ve FF 50 [...] Order Detail nces retati t Range on Urinalysis dipstick W Reflex Microscopic panel in Urine (01-19-2017 20:54) Bacteri 3+ O complet a 017 ed [Presen 20:54 ce] in Urine sedimen t by Light microsc opy Calcium 3+ NONE complet 017 ed oxalate 20:54 crystal s [Presen ce] in Urine sedimen t by Light microsc opy Erythro 3-5 0 complet cytes 017 ed [Presen 20:54 ce] in Urine sedimen t by Light microsc opy Epithel 10-20 0#/hp complet ial 017 f - ed cells.s 20:54 5#/hp quamous f [Presen ce] in Urine sedimen t by Microsc opy high power field Leukocy 10-20 O complet nuno 017 wbc/hpf ed [#/volu 20:54 me] in Urine Urinalysis dipstick W Reflex Microscopic panel in Urine (01-19-2017 20:54) Appeara SL CLEAR complet nce of 017 CLOUDY ed Urine 20:54 Bilirub NEGATIV NEG complet in 017 E ed [Presen 20:54 ce] in Urine by Test strip Erythro 3+ NEG Abnorma complet cytes 017 l ed [Presen 20:54 ce] in Urine Color DK YELLOW complet of 017 YELLOW ed Urine 20:54 Ketones TRACE NEG Abnorma complet 017 l ed [Presen 20:54 ce] in Urine by Automat ed test strip Mucus TRACE NEG Abnorma complet [Presen 017 l ed ce] in 20:54 Urine sedimen t by Light microsc opy Nitrite POSITIV NEG Abnorma complet 017 E l ed [Presen 20:54 ce] in Urine by Test strip Urobili 0.2 NEG complet nogen 017 ed [Presen 20:54 ce] in Urine by Test strip Urine 9-analyte drugs of abuse screening (01-19-2017 [...] Urine by Screen method (01-19-2017 10:10) Ampheta 01-19- NEGATIV <1000 complet mine 017 E ed [...] 10:00 E ng/mL ment (mass/v olume) 11-hydr NEGATIV <50 complet oxy 017 E ed delta-9 10:00 NEGATIV E L tetrahy ng/mL drocann abinol Drugs identified in Urine by Screen method (12-20-2016 10:00) Ampheta 10-11-2 NEGATIV <1000 complet mine 017 E ed [Presen 10:00 ce] in Urine by Screen method 11-Hydr --2 NEGATIV <50 complet oxy 017 E ed [...] Urine by Screen method (10-27-2016 10:15) Ampheta --2 NEGATIV <1000 complet mine 017 E ed [Presen 10:15 ce] in Urine by Screen method 11-Hydr 10-27-2 POSITIV <50 Abnorma complet oxy 017 E l ed delta-9 10:15 tetrahy drocann abinol [Presen ce] in Unspeci fied specime n Drugs identified in Urine by Screen method (09-29-2016 10:05) Ampheta --2 NEGATIV <1000 complet mine 017 E ed [Presen 10:05 ce] in Urine by Screen method 11-Hydr 09-29-2 NEGATIV <50 complet oxy 017 E ed delta-9 10:05 tetrahy drocann abinol [Presen ce] in Unspeci fied specime n Urinalysis dipstick W Reflex Microscopic panel in Urine (09-01-2016 21:10) Bacteri 09-01-2 TRACE O complet a 017 ed [Presen 21:10 ce] in Urine sedimen t by Light microsc opy Erythro 09-01-2 TNTC 0 complet cytes 017 ed [Presen [...] of 017 CLOUDY ed Urine 21:10 Bilirub 2 NEGATIV NEG complet in 017 E ed [Presen 21:10 ce] in Urine by Test strip Erythro 3+ NEG Abnorma complet cytes 017 l ed [Presen 21:10 ce] in Urine Color ORANGE YELLOW complet of 017 ed Urine 21:10 Ketones NEGATIV NEG complet 017 E ed [Presen 21:10 ce] in Urine by Automat ed test strip Mucus TRACE NEG Abnorma complet [Presen 017 l ed ce] in 21:10 Urine sedimen t by Light microsc opy Nitrite POSITIV NEG Abnorma complet 017 E l ed [Presen 21:10 ce] in Urine by Test strip Urobili 2 1.0 NEG complet nogen 017 ed [Presen 21:10 ce] in Urine by Test strip CBC (hemogram) Bld Auto (09-01-2016 06:36) WBC 09-01-2 3.57 3.50-10 complet nRBC 017 10*3/mm .80 ed cor # 06:36 3 Bld RBC # 23-2 3.62 3.89-5. complet Bld 017 10*6/mm 14 ed Auto 06:36 3 Hgb 23-2 10.7 11.5-15 complet Bld-mCn 017 g/dL .5 ed c 06:36 Hct VFr 23-2 32.8 % 34.5-44 complet Bld 017 .0 ed Auto 06:36 MCV RBC 23-2 90.6 fL 80.0-99 complet Auto 017 .0 ed 06:36 MCH RBC 23-2 29.6 pg 27.0-31 complet Qn 017 .0 ed Auto 06:36 MCHC 23-2 32.6 32.0-36 complet RBC 017 g/dL .0 ed Auto-mC 06:36 nc RDW RBC 23-2 14.2 % 11.3-14 complet 017 .5 ed Auto-Rt 06:36 o RDW RBC 06-23-2 47.2 fl 37.0-54 complet Auto 017 .0 ed 06:36 PMV Bld 2 8.8 fL 6.0-12. complet Auto 017 0 ed 06:36 Platele 244 150-450 complet t # Bld 017 10*3/mm ed Auto 06:36 3 Bas Metab 2000 Pnl SerPl (09-01-2016 06:36) Comment: [employer] Guidelines Comment: Comment: Stage Description GFR Comment: 1 Normal or High 90+ Comment: 2 Mild decrease 60-89 Comment: 3 Moderate decrease 30-59 Comment: 4 Severe decrease 15-29 Comment: 5 Kidney failure <15 BUN 23-2 11 9-23 complet Bld-mCn 017 mg/dL ed c 06:36 Creat 09-01-2 0.80 0.60-1. complet Bld-mCn 017 mg/dL 30 ed c 06:36 Sodium 09-01- 142 132-146 complet Bld-sCn 017 mmol/L ed c 06:36 Potassi 09-01-2 3.9 3.5-5.5 complet um 017 mmol/L ed Bld-sCn 06:36 c Chlorid 09-01-2 108 99-109 complet e 017 mmol/L ed SerPl-s 06:36 Cnc CO2 09-01-2 26.0 20.0-31 complet SerPl-s 017 mmol/L .0 ed Cnc 06:36 Calcium 09-01-2 9.9 8.7-10. complet 017 mg/dL 4 ed XXX-sCn 06:36 c GFR/BSA 76 >60 complet .pred 017 mL/min/ ed [...] Microscopic panel in Urine (08-26-2016 21:25) Appeara 08-26- CLEAR CLEAR complet nce of 017 ed Urine 21:25 Bilirub 08-26-2 NEGATIV NEG complet in 017 E ed [Presen 21:25 ce] in Urine by Test strip Erythro NEGATIV NEG complet cytes 017 E ed [Presen 21:25 ce] in Urine Color 08-26-2 YELLOW YELLOW complet of 017 ed Urine 21:25 Ketones 08-26- NEGATIV NEG complet 017 E ed [Presen 21:25 ce] in Urine by Automat ed test strip Mucus 08-26- NEGATIV NEG complet [Presen 017 E ed ce] in 21:25 Urine sedimen t by Light microsc opy Nitrite NEGATIV NEG complet 017 E ed [Presen 21:25 ce] in Urine by Test strip Urobili 08-26-2 0.2 NEG complet nogen 017 ed [Presen 21:25 ce] in Urine by Test strip Drugs identified in Urine by Screen method (08-02-2016 10:10) Ampheta -24-2 NEGATIV <1000 complet mine 017 E ed [Presen 10:10 ce] in Urine by Screen method 11-Hydr -24-2 NEGATIV <50 complet oxy 017 E ed delta-9 10:10 tetrahy drocann abinol [Presen ce] in Unspeci fied specime n Urinalysis dipstick W Reflex Microscopic panel in Urine (07-26-2016 20:47) Bacteri --2 TRACE O complet a 017 ed [Presen 20:47 ce] in Urine sedimen t by Light microsc opy Casts --2 OCC NONE complet [Presen 017 ed ce] in 20:47 Urine sedimen t by Light microsc opy Erythro -17-2 5-10 0 complet cytes 017 ed [Presen 20:47 ce] in Urine sedimen t by Light microsc opy Epithel -17-2 3-5 0#/hp complet ial 017 f - [...] SerPl-s 013 mmoL/L ed Cnc 20:00 Potassi 4.8 3.5-5.1 complet um 013 mmoL/L ed SerPl-s 20:00 Cnc Chlorid 104 98-107 complet e 013 mmoL/L ed SerPl-s 20:00 Cnc CO2 30 21.0-32 complet SerPl-s 013 mmoL/L .0 ed Cnc 20:00 Calcium 8.9 8.5-10. complet 013 mg/dL 1 ed SerPl-m 20:00 Cnc CBC with AUTO DIFF (02-14-2013 20:00) WBC # 02-14-2 7.5 4.8-10. complet Bld 013 K/MM3 8 ed Auto 20:00 RBC # 02-14- 4.22 4.2-5.4 complet Bld 013 M/mm3 ed [...] ed Fr Bld 20:00 Auto LYMPH % 2 11.7 % 10-50.0 complet 013 ed 20:00 Monocyt 2 3.2 % 1.7-9.3 complet es Fr 013 ed Bld 20:00 Auto Eosinop 2 0.8 % 0.1-12. complet hil Fr 013 0 ed Bld 20:00 Auto Basophi 02-14-2 0.2 % 0.1-2.0 complet ls Fr 013 ed Bld 20:00 Auto Granulo 02-14-2 6.3 1.8-7.8 complet cytes # 013 K/mm3 ed Bld 20:00 Auto Lymphoc 02-14-2 0.9 0.7-4.5 complet ytes Fr 013 K/mm3 ed Bld 20:00 Auto Monocyt 02-14-2 0.2 0.1-1.0 complet es # 013 K/mm3 ed Bld 20:00 Auto Eosinop 02-14-2 0.1 0.0-0.4 complet hil # 013 K/mm3 ed Bld 20:00 Auto Basophi 2 0.0 0-0.2 complet ls # 013 K/MM3 ed Bld 20:00 Auto Encounters Encounter Start End Date Code Location Performer Type Date Emergency ROMEL Austin MD (ER) 3 09:02 3 10:07 [facility] Emergency ROMEL Jose MD (ER) 3 20:03 3 22:28 [facility] Emergency ROMEL Jose MD (ER) 3 10:30 3 10:31 [facility] Emergency ROMEL Jose MD (ER) 3 13:08 3 13:36 [facility]
--- OUTSIDE RECORDS SUMMARY | 2017-01-19 22:38 | External Medical Summary Rpt | CCD ---
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 Auxiliary Power Equipment Operator Name Role Phone Olvin Austin MD, Unavailable Unavailable Olvin Jose MD, Unavailable Unavailable Socorro Jose MD Purpose Continuity of Care Document - 12-20-2012 through 2016 Problems Code Diagnosis DOS Provider Status 487.1 487.1 FLU W 03-02-2013 [place] RESP [facility] MANIFEST Hospital [facility] V14.8 V14.8 03-02-2013 [place] HX-DRUG [facility] ALLERGY [facility] Hospital 053.9 053.9 02-14-2013 [place] HERPES [facility] ZOSTER NOS Hospital 079.99 079.99 02-14-2013 [place] VIRAL [facility] INFECTION Hospital NOS 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, NOT SPCF ACUTE OR CHRONIC N20.0 CALCULUS OF KIDNEY N23 UNSPECIFIED RENAL COLIC N39.0 URINARY TRACT INFECTION, SITE NOT SPECIFIED R10.9 UNSPECIFIED ABDOMINAL PAIN R31.9 HEMATURIA, UNSPECIFIED Z79.899 OTHER CUSTODIAL (CURRENT) DRUG THERAPY Allergies, Adverse Reactions, Alerts [...] ti ve 32 5 MG -5 MG KS 00 12 0 No OM 64 -0 ET 11 6- Lo QUIROZ 49 20 ng ZI 53 13 er NE 5 Ac 25 ti ve MG /M L AM PU L AC 00 12 0 No YC 09 -0 LO 38 6- Lo 94 20 ng R 30 13 er 40 1 0 Ac MG ti ve TA BL ET KS 00 12 0 No ED 05 -0 NI 40 6- Lo SO 01 20 ng NE 82 13 er 0 20 Ac ti MG ve TA BL ET KS 51 12 0 No OM 07 -0 [...] ng CE 42 13 er TA 1 MS Ac N- ti CA ve FF 50 [...] Austin MD (ER) 3 09:02 3 10:07 [facility] Emergency ROMEL Jose MD (ER) 3 20:03 3 22:28 [facility] Emergency ROMEL Jose MD (ER) 3 10:30 3 10:31 [facility] Emergency ROMEL Jose MD (ER) 3 13:08 3 13:36 [facility]
--- NOTE | 2017-01-19 22:59 | RADIOLOGY REPORT PS360 ---
CHEST(2 VIEWS-NOT PORTABLE) HISTORY: c/o cough ORDERING PHYSICIAN: Konstantin Rodríguez MD PATIENT AGE: 51 years COMPARISON: 01/25/2016 FINDINGS: The cardiomediastinal silhouette and pulmonary vascularity are within normal limits. The lungs are clear without infiltrates, suspicious nodules, or pleural effusions. No acute bony abnormalities. There is a bone plate overlying the lower cervical spine. IMPRESSION: No acute finding
[2017-01-19 23:09] VITALS: BP 167/95
[2017-01-19 23:10] VITALS: BP 167/95
[2017-01-20] MEDS ORDERED: NORCO 325 MG-51 TAB PO (00:02)
[2017-01-20] MEDS ORDERED: IBUPROFEN800 MG PO (00:07)
[2017-01-20 03:49] VITALS: BP 146/85
--- NOTE | 2017-01-20 06:03 | RADIOLOGY REPORT PS360 ---
CT ABD PELVIS W/O CONTRAST CLINICAL INDICATION: Right flank pain with nausea, history of renal stones FLANK PAIN ORDERING PHYSICIAN: Jone Rodríguez MD PATIENT AGE: 51 years COMPARISON: 08/27/2016 TECHNIQUE: Axial images obtained with sagittal and coronal reformats. PROCEDURE: Oral Contrast: None IV Contrast: None . FINDINGS: Lung bases are clear. The liver, gallbladder, spleen, adrenal glands, and pancreas show no acute finding. No hydronephrosis or hydroureter. There is a nonobstructing 4 mm stone in the lower pole the right kidney. No urinary bladder calculi. Unremarkable appendix. No intestinal obstruction, free air, or diverticulitis. Prior hysterectomy. No pelvic mass or abnormal fluid collection. No acute bony anomalies. There is a small umbilical hernia containing fat IMPRESSION: 1. Nonobstructing right renal calculus. 2. No obstructing renal calculi. No evidence of appendicitis
[2017-01-20 06:56] LABS: HEMOGLOBIN 11.1 g/dL (12.2-16.2); LYMPH # 1.6 K/mm3 (0.7-4.5); LYMPH % 40.6 % (10-50.0)
[2017-01-20 08:00] VITALS: BP 122/79
--- NOTE | 2017-01-20 08:23 | PHARMACY CLINIC NOTE ---
Patient Demographics Patient Demographics Admission date: 01/19/17 Date: 01/20/17 Time: 0823 Allergies Coded Allergies: Tetanus Vaccines and Toxoid (TETANUS VACCINES & TOXOID) (Severe, 09/01/16) butorphanol (Severe, 09/01/16) tolterodine (Severe, 09/01/16) amitriptyline (Mild, 09/01/16) gabapentin (Mild, 09/01/16) prochlorperazine (Mild, 09/01/16) ketorolac (From TORADOL) (09/01/16) HEIGHT- FT: 5 IN: 4.00 K.160 VTE General Information Labs: Laboratory Tests 01/20 01/19 0616 2054 Hematology Hgb (12.2 - 16.2 g/dL) 11.1 L 11.7 L Hct (37.0 - 47.0 %) 33.5 L 35.2 L Plt Count (142 - 424 K/mm3) 287 312 Disclaimer The following section includes nursing documentation that has been pulled in for pharmacy review. Patient's VTE score: 2 Patient's VTE Risk: VERY LOW RISK Clinical trial participant? No VTE prophylaxis [id number] [id number] VTE prophylaxis ordered? Yes Type of prophylaxis/treatment: NICOLE at 0823
[2017-01-20 08:59] VITALS: BP 122/79
--- NOTE | 2017-01-20 09:02 | HISTORY AND PHYSICAL REPORT ---
Demographics: Admit date: 01/19/17 Chief complaint: pt with flank pain with painful urination over the last day with dec po intake and has fever with hx of kidney stones - pt with pain not relieved with po meds and has dec po intake with nausea and episode of vomiting pt with flank pain with dec urination and dysuria with nausea and dec po intake with sl fever but no rash or trauma PRIMARY DIAGNOSIS: UTI Allergies: Coded Allergies: Tetanus Vaccines and Toxoid (TETANUS VACCINES & TOXOID) (Severe, 09/01/16) butorphanol (Severe, 09/01/16) tolterodine (Severe, 09/01/16) amitriptyline (Mild, 09/01/16) gabapentin (Mild, 09/01/16) prochlorperazine (Mild, 09/01/16) ketorolac (From TORADOL) (09/01/16) History of present illness: History of present illness: pt with rt flank pain with dec po intake and n/v with low grade fever and has no relief with po meds - she has hx of kidney stones -pt was seen in the ed with pos u/a and was started on ivf pain meds and abx Past medical history: Family HX Family Hx Insignificant Yes Immunization HX DT/Tetanus Refuses Flu 2015-FSN Pneumonia Received In Past TB Test in last year No General CAD? No Angina: Yes IA: No Hypertension? No Hyperlipidemia? No CHF? No DVT? No PE? No COPD? No Asthma? No Anemia? No GERD? Yes Gastric ulcers? No GI Bleed? No Hernia? Yes Thyroid Problems? No Hypothyroidism? No CVA? No Seizures? No Diabetes? No Renal Insuffiency? No UTI? Yes Stones? Yes BPH? No GB Disease: No Nephritic Syndrome? No Asplenia? No Hepatitis? No Sickle Cell Disease? No Arthritis? No Migraines? Yes Cataracts? No Glaucoma? No MRSA? Yes HIV? No TB? No Anxiety? No Depression? No Cancer? No More? No Past Surgical HX Previous Surgery?Y HYSTERECTOMY Tonsil WISDOM TEETH R KNEE, LT KNEE BOTOX TO BLADDER L GREAT TOE L HAND GAGLION CYST L OOPHORECTOMY, ADHESIONS D&C X 3 KIDNEY STONE R JAW SURGERY OVARIAN CYST LEFT THUMB CYST NECK SURG INSERTION CHRISTINA HYDROCYSTO,CYSTOSCOPE/BOT Current home meds: Reported Medications Esomeprazole Magnesium (Nexium 40MG Cap) 40 MG PO DAILY Sumatriptan Succinate (Imitrex) 100 MG PO DAILYP PRN HEADACHE VENLAFAXINE HCL (Venlafaxine Hydrochloride) 0.5 TABLET PO BID Pentosan Polysulfate Sodium (Elmiron 100MG Capsule) 100 MG PO TID #90 CAPSULE Cyclobenzaprine Hcl 10 MG PO TID PRN MUSCLE SPASMS #90 TAB Alprazolam 0.5 MG PO BID #90 TAB CETIRIZINE HCL (Zyrtec) 10 MG PO DAILY PROMETHAZINE HCL (Phenergan 25MG Tab (Geq)) 25 MG PO BIDP PRN N/V #20 TAB HYDROCODONE/ACETAMINOPHEN ([place] 5-325 Tablet) 1 TAB PO Q4HP PRN PAIN Ibuprofen (Ibuprofen 800MG) 800 MG PO BID PRN PAIN/FEVER Pregabalin (Lyrica 75MG) 75 MG PO QHS #30 Zolpidem Tartrate (Zolpidem 10MG) 10 MG PO QHS #30 Social Hx: Smoking HX Tobacco No Packs/day N/A Are you/the child exposed to second-hand smoke: Yes Alcohol Alcohol: No Hx of Drug Use Drug Use? No Patien't marital status is Patient's support system is good Review of systems: Constitutional see HPI, fever, weakness. Eyes No: blurred vision. Ears, Nose, Mouth, Throat No ear discharge, No epistaxis, No throat pain Respiratory No: cough, shortness of breath, wheezing. Cardiovascular No chest pain, No palpitations, No syncope Gastrointestinal/Abdominal see HPI, No diarrhea, nausea, poor appetite, poor fluid intake, vomiting Genitourinary see HPI, dysuria, frequency, hematuria. No: abnormal vaginal bleeding, hesitancy. Musculoskeletal No: back pain, joint pain, neck pain. Skin No: rash. Neurological No: headache, seizure disorder. Psychiatric No: no symptoms reported. Exam: Lab data for last 24 hours: Laboratory Tests 01/20/17 0616: Sodium 140, Potassium 3.7, Chloride 106, Carbon Dioxide 28, BUN 12, Creatinine 0.9, Estimated Creat Clear 91, Estimated GFR (MDRD) 66, Glucose 92, Calcium 8.3 L, WBC 4.1 L, RBC 3.81 L, Hgb 11.1 L, Hct 33.5 L, MCV 87.8, RDW 13.6, Plt Count 287, MPV 7.2 L, Gran % 46.2, Gran # 1.9, Lymphocytes % 40.6, Monocytes % 8.3, Eosinophils % 4.2, Basophils % 0.8, Lymphocytes # 1.6, Monocytes # 0.3, Eosinophils # 0.2, Basophils # 0.0, PUBS MCHC 33.2, MCH 29.2 01/19/172053: Creatine Kinase 98, CK-MB (CK-2) Rel Index 0.6, CK and CKMB Interp 0.6, Troponin I < 0.02 01/19/172053: Sodium 138, Potassium 3.5, Chloride 103, Carbon Dioxide 28, BUN 13, Creatinine 1.0, Estimated Creat Clear 78, Estimated GFR (MDRD) 58 L, Glucose 91, Calcium 9.1, Total Bilirubin 0.2, AST 20, ALT 29, Alkaline Phosphatase 87, Total Protein 7.3, Albumin 4.2, Globulin 3.1, Albumin/Globulin Ratio 1.4, WBC 4.7 L, RBC 4.06 L, Hgb 11.7 L, Hct 35.2 L, MCV 86.9, RDW 13.7, Plt Count 312, MPV 7.2 L, Gran % 46.9, Gran # 2.2, Lymphocytes % 42.5, Monocytes % 7.0, Eosinophils % 2.8, Basophils % 0.9, Lymphocytes # 2.0, Monocytes # 0.3, Eosinophils # 0.1, Basophils # 0.0, PUBS MCHC 33.3, MCH 28.9, Urine Color DK YELLOW, Urine Appearance SL CLOUDY, Urine pH 5.5, Ur Specific [place] 1.025, Urine Protein 1+ H, Urine Ketones TRACE H, Urine Blood 3+ H, Urine Nitrate POSITIVE H, Urine Bilirubin NEGATIVE, Urine Urobilinogen 0.2, Ur Leukocyte Esterase TRACE H, Urine RBC 3-5, Urine WBC 10-20, Ur Squamous Epith Cells 10-20, Calcium Oxalate Crystal 3+, Urine Bacteria 3+, Urine Glucose NEGATIVE Microbiology 01/19 2054 URINE CC: Urine Culture - RES 01/19 2054 BLOOD: Anaerobic Blood Culture - RECD 01/19 2054 BLOOD: Aerobic Blood Culture - RECD 01/19 2054 BLOOD: Anaerobic Blood Culture - RECD 01/19 2054 BLOOD: Aerobic Blood Culture - RECD Admission vital signs: 1ST Vital Signs Result Date Time Pulse Ox 97 01/19 2042 B/P 136/85 01/19 2042 Temp 98.3 01/19 2042 Pulse 101 01/19 2042 Resp 18 01/19 2042 O2 Delivery ROOM AIR 01/19 2309 Exam General appearance: alert, awake Eyes: PERRLA ENT: dry mucous membranes Neck: no JVD Cardiovascular: regular rate & rhythm, no murmur Respiratory: no respiratory distress ABD: soft, no tenderness, no guarding, no organomegaly Genitourinary: no hematuria, dysuria Extremities: moves all Musculoskeletal: equal muscle strength Skin: skin lesion with cellulitis Neuro: 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 Renal colic on right side 2. UTI (urinary tract infection) 3. Cellulitis Plan: will use abx and pain meds and check culture at 0902
[2017-01-20] MEDS ORDERED: APAP/HYDROCODON1 TA9 PO (09:19)
[2017-01-20 15:30] VITALS: BP 134/71
[2017-01-20 19:54] VITALS: BP 132/78
[2017-01-20 19:55] VITALS: BP 132/78
[2017-01-21 04:13] VITALS: BP 123/80
[2017-01-21 08:03] VITALS: BP 119/78
[2017-01-21 09:01] VITALS: BP 119/78
--- NOTE | 2017-01-21 14:03 | ACUTE CARE PROGRESS NOTE (QUA) ---
Progress Notes Subjective Date 01/21/17 Time 1402 Patient/family reports: pain Nursing reports: pain Objective Findings Vital Signs Date Time Temp Pulse Resp B/P Pulse O2 O2 Flow FiO2 Ox Delivery Rate 01/21 1218 18 01/21 0901 98.4 92 18 119/78 92 01/21 0803 98.4 92 18 119/78 92 ROOM AIR 01/21 0728 18 01/21 0413 97.7 98 18 123/80 95 ROOM AIR 01/21 0319 16 01/20 2019 18 01/20 1955 98.0 84 18 132/78 98 01/20 195 98.0 84 16 132/78 98 ROOM AIR 01/20 1609 20 01/20 1530 98.1 87 20 134/71 100 ROOM AIR Current Medications Hydromorphone HCl 0 .STK-MED ONE .ROUTE (DCr) Promethazine HCl 0 .STK-MED ONE .ROUTE (DCr) Sodium Chloride 25 ML .STK-MED ONE IV (DC) Cyclobenzaprine HCl 0 .STK-MED ONE PO (DCr) Alprazolam 0 .STK-MED ONE .ROUTE (DC) Hydromorphone HCl 0 .STK-MED ONE .ROUTE (DCr) Ondansetron HCl 0 .STK-MED ONE .ROUTE (DC) Sodium Chloride 1,000 ML .STK-MED ONE IV (DC) Sodium Chloride 25 ML .STK-MED ONE IV (DC) Promethazine HCl 0 .STK-MED ONE .ROUTE (DCr) Hydromorphone HCl 0 .STK-MED ONE .ROUTE (DCr) Zolpidem Tartrate 0 .STK-MED ONE PO (DC) Pantoprazole Sodium 40 MG QHS PO Pregabalin 75 MG QHS PO Pregabalin 0 .STK-MED ONE PO (DCr) Zolpidem Tartrate 10 MG QHS PO Alprazolam 0 .STK-MED ONE .ROUTE (DC) Sodium Chloride 25 ML .STK-MED ONE IV (DC) Promethazine HCl 0 .STK-MED ONE .ROUTE (DCr) Hydromorphone HCl 0 .STK-MED ONE .ROUTE (DCr) Hydromorphone HCl 0 .STK-MED ONE .ROUTE (DCr) Ertapenem 1 GM 1300 IV Sodium Chloride 50 ML Sodium Chloride 10 ML PRN PRN IV Mupirocin APPLY TWICE A DAY DIRECTED BID TP Polyethylene Glycol 17 GM DAILY PO Venlafaxine HCl 75 MG BID PO Alprazolam 0.5 MG BID PO Acetaminophen 650 MG Q4HP PRN PO Cyclobenzaprine HCl 10 MG TID PRN PO Hydromorphone HCl 1 MG Q4HP PRN IV Ondansetron HCl 4 MG Q6HP PRN IV Promethazine HCl 25 MG Q4HP PRN IV Sodium Chloride 1,000 ML .[id number] IV Sodium Chloride 25 ML PRN PRN IV Sumatriptan Succinate 6 MG PRN-MRX1 PRN SC Sodium Chloride 10 ML PRN PRN IV (DC) Sodium Chloride 10 ML PRN PRN IV (DC) Last VS-Temp:98.4 B/P:119/78 Pulse:92 Resp:18 SaO2:92 ROOM AIR Last weight lbs:172 oz:5 K.160 Method:Bed Scales Exam General appearance: normal appearance, alert, active, awake, no acute distress Eyes: normal exam ENT: normal exam Neck: normal inspection, full range of motion Cardiovascular: normal exam, regular rate & rhythm Respiratory: normal exam, aerating well, clear to auscultation, chest non- tender, normal breath sounds, no respiratory distress ABD: normal exam, normal bowel sounds, soft, tenderness Genitourinary: normal voiding & quantity Extremities: normal exam, moves all Musculoskeletal: normal exam, back pain Skin: normal exam, intact, warm Neuro: normal exam, alert, intact, oriented Reviewed: allergies, medications, vital signs, lab results, radiology report, consult note Assessment/Plan Problem List 1. Renal colic on right side 2. UTI (urinary tract infection) Qualifiers: Urinary tract infection type: acute cystitis Hematuria presence: without hematuria Qualified Code: N30.00 - Acute cystitis without hematuria 3. Cellulitis Patient condition Stable Plan: continue current care This inpt stay is expected to cross 2 MNs from start of care Yes Comments: Dr. Rodríguez will round later today Antibiotic Stewardship (2) Current Culture Results Microbiology 01/19 2054 URINE CC: Urine Culture - RES 01/19 2054 BLOOD: Anaerobic Blood Culture - RECD 01/19 2054 BLOOD: Aerobic Blood Culture - RECD at 1430
[2017-01-21 16:12] VITALS: BP 115/71
[2017-01-21 19:52] VITALS: BP 129/75
[2017-01-21 20:00] VITALS: BP 129/75
[2017-01-22 04:22] VITALS: BP 115/78
[2017-01-22 07:26] VITALS: BP 116/68
--- NOTE | 2017-01-22 11:34 | ACUTE CARE PROGRESS NOTE (QUA) ---
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 Renal colic on right side 2. UTI (urinary tract infection) 3. Cellulitis Patient condition Stable Plan: order additional tests This inpt stay is expected to cross 2 MNs from start of care Yes Comments: will check labs Antibiotic Stewardship (2) Current Culture Results Microbiology 01/19 2054 URINE CC: Urine Culture - RES STAPHYLOCOCCUS EPIDERMIDIS 01/19 2054 BLOOD: Anaerobic Blood Culture - RECD 01/19 2054 BLOOD: Aerobic Blood Culture - RECD at 1133
--- NOTE | 2017-01-22 11:34 | ACUTE CARE PROGRESS NOTE (QUA) ---
Progress Notes Subjective Date 01/22/17 Time 0900 Note still with flank pain Patient/family reports: pain Nursing reports: no complaints Objective Findings Last VS-Temp:98.3 B/P:116/68 Pulse:98 Resp:20 SaO2:98 ROOM AIR Last weight lbs:172 oz:5 K.160 Method:Bed Scales Exam General appearance: alert, active Eyes: PERRLA ENT: dry mucous membranes Neck: no JVD Cardiovascular: regular rate & rhythm Respiratory: no respiratory distress ABD: soft Genitourinary: no hematuria Extremities: moves all Musculoskeletal: equal muscle strength Skin: dry Neuro: alert, alteration hand II-XII nml as tested Reviewed: allergies, medications, vital signs, lab results Assessment/Plan Problem List 1. Renal colic on right side 2. UTI (urinary tract infection) 3. Cellulitis Patient condition Stable Plan: order additional tests This inpt stay is expected to cross 2 MNs from start of care Yes Comments: will check labs Antibiotic Stewardship (2) Current Culture Results Microbiology 01/19 2054 URINE CC: Urine Culture - RES STAPHYLOCOCCUS EPIDERMIDIS 01/19 2054 BLOOD: Anaerobic Blood Culture - RECD 01/19 2054 BLOOD: Aerobic Blood Culture - RECD at 1133
[2017-01-22 12:29] LABS: LYMPH # 1.4 K/mm3 (0.7-4.5)
[2017-01-22 15:40] VITALS: BP 126/86
[2017-01-22 20:20] VITALS: BP 150/84
[2017-01-22 21:40] VITALS: BP 150/84
[2017-01-23 04:20] VITALS: BP 133/80
--- NOTE | 2017-01-23 08:14 | ACUTE CARE PROGRESS NOTE (QUA) ---
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 Renal colic on right side 2. UTI (urinary tract infection) 3. Cellulitis Patient condition Improving Plan: initiate discharge plan This inpt stay is expected to cross 2 MNs from start of care Yes at 0813
--- NOTE | 2017-01-23 08:14 | ACUTE CARE PROGRESS NOTE (QUA) ---
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 Renal colic on right side 2. UTI (urinary tract infection) 3. Cellulitis Patient condition Improving Plan: initiate discharge plan This inpt stay is expected to cross 2 MNs from start of care Yes at 0813
[2017-01-23] MEDS ORDERED: PYRIDIUM200 M2 PO (08:17)
[2017-01-23] MEDS ORDERED: KEFLEX 500MG.500 MG PO (08:17)
--- NOTE | 2017-01-23 08:20 | DISCHARGE SUMMARY STANDARD ---
Demographics Admit date: 01/19/17 Discharge date: 01/23/17 History of present illness History of present illness pt with rt flank pain with dec po intake and n/v with low grade fever and has no relief with po meds - she has hx of kidney stones -pt was seen in the ed with pos u/a and was started on ivf pain meds and abx Hospital Course Hospital Course: pt with slow but steady improvement on ivf and abx - her pain improved and her culture showed s. epi as in urine and was on correct abx- she was afebrile and d /c on abx with percocet for 2 days as she feels it is better for her with renal issues Discharge diagnoses Problem List 1. Renal colic on right side 2. UTI (urinary tract infection) 3. Cellulitis Medications Medications: Discharge meds are as noted. Follow up Follow up in office in: 2 WEEKS with: Jone Rodríguez MD Comment: fluids and use meds and will reculture urine as op at 0820
[2017-01-23 08:21] VITALS: BP 133/80
[2017-01-23 08:30] VITALS: BP 137/60
== END 2017-01-23 09:45 | disposition home or self-care (01) ==
LOC: ER 20:31 → 2ND 22:33 → ER 22:33 → 2ND 23:01
PROVIDERS: Emergency Medicine
DX: N30.00 Acute cystitis without hematuria (principal); L03.90 Cellulitis, unspecified; N23 Unspecified renal colic; Z88.7 Allergy status to serum and vaccine; Z88.8 Allergy status to other drugs, medicaments and biological substances; Z87.442 Personal history of urinary calculi; Z79.891 Long term (current) use of opiate analgesic; Z79.899 Other long term (current) drug therapy
CPT/HCPCS: G0378; J1335; J2405

== ENCOUNTER → 2017-01-19 | Outpatient (CLI) | payer MEDICARE, MEDICAID ==
[~2017-01-19] MED LIST changes: +IBUPROFEN800 MG PO; +NORCO 325 MG-51 TAB PO
[2017-01-19 12:52] LABS: AMPHETAMINES/METAMPHETAMINES NEGATIVE ng/mL (<1000)
== END ==
LOC: LAB 12:00
PROVIDERS: Emergency Medicine
DX: Z79.899 Other long term (current) drug therapy (principal)

== ENCOUNTER 2017-02-04 15:37 | Emergency (ER) | payer MEDICARE, MEDICAID ==
[~2017-02-04] VITALS: Ht 162.6 cm; Wt 74.4 kg
[~2017-02-04 15:37] MED LIST changes: +IBUPROFEN800 MG PO; +NORCO 325 MG-51 TAB PO
--- OUTSIDE RECORDS SUMMARY | 2017-02-04 15:51 | External Medical Summary Rpt | CCD ---
Author Author , ASAD Organization ASAD Address Unknown Phone [email or web address] [email or web address] Care Business Continuity Coordinator Name Role Phone Olvin Austin MD, Unavailable Unavailable Olvin Jose MD, Unavailable Unavailable Socorro Jose MD Purpose Continuity of Care Document - 12-20-2012 through 2016 Problems Code Diagnosis DOS Provider Status 487.1 487.1 FLU W 03-02-2013 [place] RESP [facility] MANIFEST Hospital [facility] V14.8 V14.8 03-02-2013 [place] HX-DRUG [facility] ALLERGY [facility] Hospital 053.9 053.9 02-14-2013 [place] HERPES [facility] ZOSTER NOS Hospital 079.99 079.99 02-14-2013 [place] VIRAL [facility] INFECTION Hospital NOS 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, NOT SPCF ACUTE OR CHRONIC N20.0 CALCULUS OF KIDNEY N23 UNSPECIFIED RENAL COLIC N39.0 URINARY TRACT INFECTION, SITE NOT SPECIFIED R10.9 UNSPECIFIED ABDOMINAL PAIN R31.9 HEMATURIA, UNSPECIFIED Z79.899 OTHER [facility] (CURRENT) DRUG THERAPY Allergies, Adverse Reactions, Alerts [...] ti ve 32 5 MG -5 MG MN 00 12 0 No OM 64 -0 ET 11 6- Lo QUIROZ 49 20 ng ZI 53 13 er NE 5 Ac 25 ti ve MG /M L AM PU L AC 00 12 0 No YC 09 -0 LO 38 6- Lo 94 20 ng R 30 13 er 40 1 0 Ac MG ti ve TA BL ET MN 00 12 0 No ED 05 -0 NI 40 6- Lo SO 01 20 ng NE 82 13 er 0 20 Ac ti MG ve TA BL ET MN 51 12 0 No OM 07 -0 [...] ng CE 42 13 er TA 1 DE Ac N- ti CA ve FF 50 [...] Order Detail nces retati t Range on CBC w auto diff (01-22-2017 12:13) Blood 2 = 4.5 4.8-10. complet leukocy 017 K/MM3 8 ed nuno 12:13 count (number /volume ) Automat = 13.5 11.5-17 complet ed 017 % .5 ed erythro 12:13 cyte distrib ution width Red = 3.88 4.2-5.4 complet blood 017 M/mm3 ed cell 12:13 count Blood = 282 142-424 complet platele 017 K/mm3 ed t count 12:13 Automat 2 = 7.1 7.4-10. complet ed 017 fl 4 ed blood 12:13 platele t mean volume augustina [place] % = 5.9 % 1.7-9.3 complet 017 ed 12:13 Absolut = 0.3 0.1-1.0 complet e 017 K/mm3 ed monocyt 12:13 e count Automat = 87.7 82.2-97 complet ed 017 fl .8 ed erythro 12:13 cyte mean corpusc ular v Automat = 32.4 31.8-35 complet ed 017 g/dl .4 ed erythro 12:13 cyte mean corpusc ular h Mean = 28.4 27-31.2 complet corpusc 017 pg ed ular 12: hemoglo bin (MCH) determ Lymphoc = 31.0 10-50.0 complet yte 017 % ed count, 12:13 blood, automat ed Absolut = 1.4 0.7-4.5 complet e 017 K/mm3 ed lymphoc 12:13 yte count Blood = 11.0 12.2-16 complet hemoglo 017 g/dL .2 ed bin 12:13 measure ment (mass/v olum Blood = 34.0 37.0-47 complet hematoc 017 % .0 ed rit 12:13 (volume fractio n) Granulo = 58.7 37.0-80 complet cyte 017 % .0 ed percent 12:13 age Blood = 2.7 1.8-7.8 complet granulo 017 K/mm3 ed cytes 12:13 automat ed count (numb Automat = 3.8 % 0.1-12. complet ed 017 0 ed blood 12:13 eosinop hils/10 0 leukocy t Automat = 0.2 0.0-0.4 complet ed 017 K/mm3 ed blood 12:13 eosinop hil count Baso % = 0.6 % 0.1-2.0 complet 017 ed 12:13 Automat 2 = 0.0 0-0.2 complet ed 017 K/MM3 ed blood 12:13 basophi l count (count/ vo Gram negative automated antibiotic susceptibility test (01-22-2017 07:18) Vancomy = 1 complet stefany 017 ug/ml ed suscept 07:18 ibility test by minimum inhibit ory concent ration Tetracy <= 1 complet delgadillo 017 ug/ml ed suscept 07:18 ibility test by minimum inhibit ory concent ration Rifampi <= 0.5 complet n 017 ug/ml ed suscept 07:18 ibility test by minimum inhibit ory concent ration Penicil -13-2 >= 0.5 complet andie G 017 ug/ml ed suscept 07:18 ibility test by minimum inhibit ory concent ration Oxacill -13-2 <= 0.25 complet in 017 ug/ml ed suscept 07:18 ibility test by minimum inhibit ory concent ration Levoflo --2 = 4 complet xacin 017 ug/ml ed suscept 07:18 ibility test by minimum inhibit ory concent ration Gentami -13-2 <= 0.5 complet stefany 017 ug/ml ed suscept 07:18 ibility test by minimum inhibit ory concent ration Nitrofu -13-2 <= 16 complet rantoin 017 ug/ml ed 07:18 suscept ibility test by minimum inhibit ory concent ration Basic metabolic panel (01-22-2017) Serum = 140 136-145 complet sodium 017 mmoL/L ed measure ment Serum = 4.0 3.5-5.1 complet potassi 017 mmoL/L ed um measure ment Serum = 83 74-106 complet or 017 mg/dL ed plasma glucose measure ment (mas Estimat = 66 59- complet ed 017 ML/MIN ed glomeru lar filtrat ion rate (GF Comment: REFERENCE RANGE: >60 ML/MIN/1.73 SQUARE METERS Comment: If this patient is -[place], then multiply the Comment: result by 1.210. Estimat = 91 50-200 complet ion of 017 ML/MIN ed creatin ine renal clearan ce Serum = 0.9 0.55-1. complet or 017 mg/dL 02 ed plasma creatin ine measure ment ( Carbon = 29 21.0-32 complet dioxide 017 mmoL/L .0 ed measure ment Serum = 105 98-107 complet or 017 mmoL/L ed plasma chlorid e measure ment (mo Serum = 8.6 8.5-10. complet or 017 mg/dL 1 ed plasma calcium measure ment (mas Serum 2 = 7 7-18 complet or 017 mg/dL ed plasma urea nitroge n measure men CBC w auto diff (01-20-2017 06:16) Blood = 4.1 4.8-10. complet leukocy 017 K/MM3 8 ed nuno 06:16 count (number /volume ) Automat = 13.6 11.5-17 complet ed 017 % .5 ed erythro 06:16 cyte distrib ution width Red = 3.81 4.2-5.4 complet blood 017 M/mm3 ed cell 06:16 count Blood = 287 142-424 complet platele 017 K/mm3 ed t count 06:16 Automat = 7.2 7.4-10. complet ed 017 fl 4 ed blood 06:16 platele t mean volume augustina [place] % = 8.3 % 1.7-9.3 complet 017 ed 06:16 Absolut = 0.3 0.1-1.0 complet e 017 K/mm3 ed monocyt 06:16 e count Automat = 87.8 82.2-97 complet ed 017 fl .8 ed erythro 06:16 cyte mean corpusc ular v Automat = 33.2 31.8-35 complet ed 017 g/dl .4 ed erythro 06:16 cyte mean corpusc ular h Mean = 29.2 27-31.2 complet corpusc 017 pg ed ular 06:16 hemoglo bin (MCH) determ Lymphoc = 40.6 10-50.0 complet yte 017 % ed count, 06:16 blood, automat ed Absolut = 1.6 0.7-4.5 complet e 017 K/mm3 ed lymphoc 06:16 yte count Blood = 11.1 12.2-16 complet hemoglo 017 g/dL .2 ed bin 06:16 measure ment (mass/v olum Blood = 33.5 37.0-47 complet hematoc 017 % .0 ed rit 06:16 (volume fractio n) Granulo = 46.2 37.0-80 complet cyte 017 % .0 ed percent 06:16 age Blood = 1.9 1.8-7.8 complet granulo 017 K/mm3 ed cytes 06:16 automat ed count (numb Automat = 4.2 % 0.1-12. complet ed 017 0 ed blood 06:16 eosinop hils/10 0 leukocy t Automat = 0.2 0.0-0.4 complet ed 017 K/mm3 ed blood 06:16 eosinop hil count Baso % = 0.8 % 0.1-2.0 complet 017 ed 06:16 Automat = 0.0 0-0.2 complet ed 017 K/MM3 ed blood 06:16 basophi l count (count/ vo Basic metabolic panel (01-20-2017 06:16) Serum = 140 136-145 complet sodium 017 mmoL/L ed measure 06:16 ment Serum = 3.7 3.5-5.1 complet potassi 017 mmoL/L ed um 06:16 measure ment Serum = 92 74-106 complet or 017 mg/dL ed plasma 06:16 glucose measure ment (mas Estimat = 66 59- complet ed 017 ML/MIN ed glomeru 06:16 lar filtrat ion rate (GF Comment: REFERENCE RANGE: >60 ML/MIN/1.73 SQUARE METERS Comment: If this patient is -[place], then multiply the Comment: result by 1.210. Estimat = 91 50-200 complet ion of 017 ML/MIN ed creatin 06:16 ine renal clearan ce Serum = 0.9 0.55-1. complet or 017 mg/dL 02 ed plasma 06:16 creatin ine measure ment ( Carbon = 28 21.0-32 complet dioxide 017 mmoL/L .0 ed 06:16 measure ment Serum = 106 98-107 complet or 017 mmoL/L ed plasma 06:16 chlorid e measure ment (mo Serum = 8.3 8.5-10. complet or 017 mg/dL 1 ed plasma 06:16 calcium measure ment (mas Serum = 12 7-18 complet or 017 mg/dL ed plasma 06:16 urea nitroge n measure men Urinalysis with microscopy (01-19-2017 20:54) Mucus TRACE NEG complet detecti 017 TRACE L ed on in 20:54 urine sedimen t by lig Urine TRACE NEG complet ketones 017 TRACE L ed 20:54 mg/dL detecti on by automat ed nuno Glucose = NEG complet ur 017 NEGATIV ed test 20:54 E strip Urine DK YELLOW complet color 017 YELLOW ed 20:54 DK YELLOW L Calcium 3+ 3+ L NONE complet 017 #/hpf ed oxalate 20:54 crystal s detecti on in ur Urine 3+ 3+ L NEG complet blood 017 ed detecti 20:54 on Urine NEGATIV NEG complet total 017 E ed bilirub 20:54 NEGATIV in E L detecti on by test Bacteri 3+ 3+ L O complet a 017 ed detecti 20:54 on in urine sedimen t by Urine SL CLEAR complet appeara 017 CLOUDY ed nce 20:54 SL determi CLOUDY nation L Urine 10 - 20 O complet leukocy 017 ed nuno 20:54 wbc/hpf count (number /volume ) Urine 0.2 0.2 NEG complet urobili 017 L ed nogen 20:54 E.U./dL detecti on by test str [place] 10-20 0-5 complet s 017 10-20 L ed epithel 20:54 #/hpf ial cells detecti on in u Urine = 1.025 1.005-1 complet specifi 017 .030 ed c 20:54 gravity measure ment Erythro 3-5 3-5 0 complet cytes 017 L ed detecti 20:54 rbc/hpf on in urine sedimen t Urine 1 + NEG complet protein 017 mg/dL ed 20:54 measure ment by automat ed t Urine = 5.5 5.0-8.5 complet pH 017 ed 20:54 Urine POSITIV NEG complet nitrite 017 E ed 20:54 POSITIV detecti E L on by test strip Cardiac enzymes (01-19-2017 20:54) Serum < 0.02 0.00-0. complet or 017 ng/mL 06 ed plasma 20:54 troponi n i.cardi ac measu Serum = 98 26-192 complet or 017 U/L ed plasma 20:54 creatin e kinase measure m Serum = 0.6 0.0-3.6 complet or 017 ng/mL ed plasma 20:54 creatin e kinase MB measu Serum = 0.6 0-4.0 complet or 017 U/L ed plasma 20:54 creatin e kinase MB (CK-M CBC w auto diff (01-19-2017 20:54) Blood = 4.7 4.8-10. complet leukocy 017 K/MM3 8 ed nuno 20:54 count (number /volume ) Automat = 13.7 11.5-17 complet ed 017 % .5 ed erythro 20:54 cyte distrib ution width Red = 4.06 4.2-5.4 complet blood 017 M/mm3 ed cell 20:54 count Blood = 312 142-424 complet platele 017 K/mm3 ed t count 20:54 Automat = 7.2 7.4-10. complet ed 017 fl 4 ed blood 20:54 platele t mean volume augustina [place] % = 7.0 % 1.7-9.3 complet 017 ed 20:54 Absolut = 0.3 0.1-1.0 complet e 017 K/mm3 ed monocyt 20:54 e count Automat = 86.9 82.2-97 complet ed 017 fl .8 ed erythro 20:54 cyte mean corpusc ular v Automat = 33.3 31.8-35 complet ed 017 g/dl .4 ed erythro 20:54 cyte mean corpusc ular h Mean = 28.9 27-31.2 complet corpusc 017 pg ed ular 20:54 hemoglo bin (MCH) determ Lymphoc = 42.5 10-50.0 complet yte 017 % ed count, 20:54 blood, automat ed Absolut = 2.0 0.7-4.5 complet e 017 K/mm3 ed lymphoc 20:54 yte count Blood = 11.7 12.2-16 complet hemoglo 017 g/dL .2 ed bin 20:54 measure ment (mass/v olum Blood = 35.2 37.0-47 complet hematoc 017 % .0 ed rit 20:54 (volume fractio n) Granulo = 46.9 37.0-80 complet cyte 017 % .0 ed percent 20:54 age Blood = 2.2 1.8-7.8 complet granulo 017 K/mm3 ed cytes 20:54 automat ed count (numb Automat = 2.8 % 0.1-12. complet ed 017 0 ed blood 20:54 eosinop hils/10 0 leukocy t Automat = 0.1 0.0-0.4 complet ed 017 K/mm3 ed blood 20:54 eosinop hil count Baso % = 0.9 % 0.1-2.0 complet 017 ed 20:54 Automat = 0.0 0-0.2 complet ed 017 K/MM3 ed blood 20:54 basophi l count (count/ vo Comprehensive metabolic panel (01-19-2017 20:54) Protein = 7.3 6.4-8.2 complet total 017 gm/dL ed ser/cristiano 20:54 s ALT = 29 12-78 complet (SGPT) 017 U/L ed ser/cristiano 20:54 s Serum = 20 15-37 complet or 017 U/L ed plasma 20:54 asparta te aminotr ansfera Serum = 138 136-145 complet sodium 017 mmoL/L ed measure 20:54 ment Serum = 3.5 3.5-5.1 complet potassi 017 mmoL/L ed um 20:54 measure ment Serum = 91 74-106 complet or 017 mg/dL ed plasma 20:54 glucose measure ment (mas Serum = 3.1 1.3-3.2 complet globuli 017 gm/dL ed n 20:54 measure ment (mass/v olume) Estimat = 58 59- complet ed 017 ML/MIN ed glomeru 20:54 lar filtrat ion rate (GF Comment: REFERENCE RANGE: >60 ML/MIN/1.73 SQUARE METERS Comment: If this patient is -[place], then multiply the Comment: result by 1.210. Estimat = 78 50-200 complet ion of 017 ML/MIN ed creatin 20:54 ine renal clearan ce Serum = 1.0 0.55-1. complet or 017 mg/dL 02 ed plasma 20:54 creatin ine measure ment ( Carbon = 28 21.0-32 complet dioxide 017 mmoL/L .0 ed 20:54 measure ment Serum = 87 46-116 complet or 017 U/L ed plasma 20:54 alkalin e phospha tase augustina Serum = 103 98-107 complet or 017 mmoL/L ed plasma 20:54 chlorid e measure ment (mo Serum = 9.1 8.5-10. complet or 017 mg/dL 1 ed plasma 20:54 calcium measure ment (mas Serum = 13 7-18 complet or 017 mg/dL ed plasma 20:54 urea nitroge n measure men Serum = 0.2 0.2-1.0 complet or 017 mg/dL ed plasma 20:54 total bilirub in measure m Serum = 4.2 3.4-5.0 complet or 017 gm/dL ed plasma 20:54 albumin measure ment (mas Serum = 1.4 1.1-1.8 complet or 017 ed plasma 20:54 albumin /globul in mass ra Urine culture (01-19-2017 20:54) Urine [id number] complet culture 017 1 ed 20:54 Staphyl ococcus epiderm idis SCT SEPI STAPHYL OCOCCUS EPIDERM IDIS L Urinalysis dipstick W Reflex Microscopic panel in Urine (01-19-2017 20:54) Bacteri 3+ O complet a 017 ed [Presen 20:54 ce] in Urine sedimen t by Light microsc opy Calcium --2 3+ NONE complet 017 ed oxalate 20:54 crystal s [Presen ce] in Urine sedimen t by Light microsc opy Erythro --2 3-5 0 complet cytes 017 ed [Presen 20:54 ce] in Urine sedimen t by Light microsc opy Epithel --2 10-20 0#/hp complet ial 017 f - ed cells.s 20:54 5#/hp quamous f [Presen ce] in Urine sedimen t by Microsc opy high power field Leukocy -- 10-20 O complet nuno 017 wbc/hpf ed [...] of 017 YELLOW ed Urine 20:54 Ketones 01-19- TRACE NEG Abnorma complet 017 l ed [Presen 20:54 ce] in Urine by Automat ed test strip Mucus TRACE NEG Abnorma complet [Presen 017 l ed ce] in 20:54 Urine sedimen t by Light microsc opy Nitrite -- POSITIV NEG Abnorma complet 017 E l ed [Presen 20:54 ce] in Urine by Test strip Urobili --2 0.2 NEG complet nogen 017 ed [Presen 20:54 ce] in Urine by Test strip Urine 9-analyte drugs of abuse screening (01-19-2017 10:10) Comment: Positive urine drug screen samples are stored for 7 days. Comment: Contact the Lab if confirmation of positives is needed. 11-hydr --2 NEGATIV <50 complet oxy 017 E ed delta-9 10:10 NEGATIV E L tetrahy ng/mL drocann abinol Phencyc = <25 complet lidine 017 NEGATIV ed measure 10:10 E ng/mL ment (mass/v olume) Opiates = <300 complet 017 POSITIV ed measure 10:10 E ng/mL ment (mass/v olume) Comment: This is an UNCONFIRMED result. This result is for medical Comment: purposes and/or treatment only. Methado = <300 complet ne 017 NEGATIV ed measure 10:10 E ng/mL ment (mass/v olume) Cocaine = <300 complet 017 NEGATIV ed measure 10:10 E ng/g ment (mass/v olume) Serum = 200 complet or 017 POSITIV ng/mL ed plasma 10:10 E ng/mL benzodi azepine s measure m Comment: This is an UNCONFIRMED result. This result is for medical Comment: purposes and/or treatment only. Urine = <200 complet barbitu 017 NEGATIV ed rates 10:10 E ng/mL measure ment by screen Urine NEGATIV <1000 complet ampheta 017 E ed mine 10:10 NEGATIV screeni E L ng test ng/mL Drugs identified in Urine by Screen method (01-19-2017 10:10) Ampheta -- NEGATIV <1000 complet mine 017 E ed [...] Lab if confirmation of positives is needed. 11-hydr NEGATIV <50 complet oxy 017 E ed delta-9 10:00 NEGATIV E L tetrahy ng/mL drocann abinol Phencyc = <25 complet lidine 017 NEGATIV ed measure 10:00 E ng/mL ment (mass/v olume) Opiates = <300 complet 017 POSITIV ed measure 10:00 E ng/mL ment (mass/v olume) Comment: This is an UNCONFIRMED result. This result is for medical Comment: purposes and/or treatment only. Methado 12-20- = <300 complet ne 017 NEGATIV ed measure 10:00 E ng/mL ment (mass/v olume) Cocaine 12-20- = <300 complet 017 NEGATIV ed measure 10:00 E ng/g ment (mass/v olume) Serum = 200 complet or 017 POSITIV ng/mL ed plasma 10:00 E ng/mL benzodi azepine s measure m Comment: This is an UNCONFIRMED result. This result is for medical Comment: purposes and/or treatment only. Urine = <200 complet barbitu 017 NEGATIV ed rates 10:00 E ng/mL measure ment by screen Urine NEGATIV <1000 complet ampheta 017 E ed mine 10:00 NEGATIV screeni E L ng test ng/mL Drugs identified in Urine by Screen method (12-20-2016 10:00) Ampheta 12-20- NEGATIV <1000 complet mine 017 E ed [Presen 10:00 ce] in Urine by Screen method 11-Hydr NEGATIV <50 complet oxy 017 E ed delta-9 10:00 tetrahy drocann abinol [Presen ce] in Unspeci fied specime n Drugs identified in Urine by Screen method (11-23-2016 10:40) Ampheta NEGATIV <1000 complet mine 017 E ed [Presen 10:40 ce] in Urine by Screen method 11-Hydr NEGATIV <50 complet oxy 017 E ed delta-9 10:40 tetrahy drocann abinol [Presen ce] in Unspeci fied specime n Drugs identified in Urine by Screen method (10-27-2016 10:15) Ampheta 10-27-2 NEGATIV <1000 complet mine 017 E ed [Presen 10:15 ce] in Urine by Screen method 11-Hydr POSITIV <50 Abnorma complet oxy 017 E l ed delta-9 10:15 tetrahy drocann abinol [Presen ce] in Unspeci fied specime n Drugs identified in Urine by Screen method (09-29-2016 10:05) Ampheta NEGATIV <1000 complet mine 017 E [...] strip CBC (hemogram) Bld Auto (09-01-2016 06:36) Platele 09-01-2 244 150-450 complet t # Bld 017 10*3/mm ed Auto 06:36 3 PMV Bld 09-01-2 8.8 fL 6.0-12. complet Auto 017 0 ed 06:36 RDW RBC 09-01-2 47.2 fl 37.0-54 complet Auto 017 .0 ed 06:36 RDW RBC 23-2 14.2 % 11.3-14 complet 017 .5 ed Auto-Rt 06:36 o MCHC 09-01-2 32.6 32.0-36 complet RBC 017 g/dL .0 ed Auto-mC 06:36 nc MCH RBC 09-01-2 29.6 pg 27.0-31 complet Qn 017 .0 ed Auto 06:36 MCV RBC 09-01-2 90.6 fL 80.0-99 complet Auto 017 .0 ed 06:36 Hct VFr 09-01-2 32.8 % 34.5-44 complet Bld 017 .0 ed Auto 06:36 Hgb 09-01-2 10.7 11.5-15 complet Bld-mCn 017 g/dL .5 ed c 06:36 RBC # 09-01-2 3.62 3.89-5. complet Bld 017 10*6/mm 14 ed Auto 06:36 3 WBC 09-01-2 3.57 3.50-10 complet nRBC 017 10*3/mm .80 ed cor # 06:36 3 Bld Bas Metab 2000 Pnl SerPl (09-01-2016 06:36) Comment: [employer] Guidelines Comment: Comment: Stage Description GFR Comment: 1 Normal or High 90+ Comment: 2 Mild decrease 60-89 Comment: 3 Moderate decrease 30-59 Comment: 4 Severe decrease 15-29 Comment: 5 Kidney failure <15 Glucose 80 70-100 complet 017 mg/dL ed Bld-mCn 06:36 c Anion 8.0 3.0-11. complet Gap3 017 mmol/L 0 ed SerPl-s 06:36 Cnc BUN/Cre 13.8 7.0-25. complet at 017 0 ed SerPl 06:36 GFR/BSA 76 >60 complet .pred 017 mL/min/ ed SerPl 06:36 1.73 MDRD-Ar VRat Calcium 9.9 8.7-10. complet 017 mg/dL 4 ed XXX-sCn 06:36 c CO2 26.0 20.0-31 complet SerPl-s 017 mmol/L .0 ed Cnc 06:36 Chlorid 09-01-2 108 99-109 complet e 017 mmol/L ed SerPl-s 06:36 Cnc Potassi 3.9 3.5-5.5 complet um 017 mmol/L ed Bld-sCn 06:36 c Sodium 09-01- 142 132-146 complet Bld-sCn 017 mmol/L ed c 06:36 Creat 2 0.80 0.60-1. complet Bld-mCn 017 mg/dL 30 ed c 06:36 BUN 09-01-2 11 9-23 complet Bld-mCn 017 mg/dL ed c 06:36 Drugs identified in Urine by Screen method [...] ce] in Urine by Test strip Erythro 08-30-2 3+ NEG Abnorma complet cytes 017 l ed [Presen 00:07 ce] in Urine Color 08-30-2 LILLIAN YELLOW complet of 017 ed Urine 00:07 Ketones 08-30-2 NEGATIV NEG complet 017 E ed [Presen 00:07 ce] in Urine by Automat ed test strip Mucus 08-30-2 NEGATIV NEG complet [Presen 017 E ed ce] in 00:07 Urine sedimen t by Light microsc opy Nitrite 08-30-2 NEGATIV NEG complet 017 E ed [Presen 00:07 ce] in Urine by Test strip Urobili 08-30-2 0.2 NEG complet nogen 017 ed [Presen 00:07 ce] in Urine by Test strip Urinalysis dipstick W Reflex Microscopic panel in Urine (08-26-2016 21:25) Amorpho 08-26- TRACE NONE complet us 017 ed sedimen 21:25 t [Presen ce] in Urine sedimen t by Light microsc opy Urinalysis dipstick W Reflex Microscopic panel in Urine (08-26-2016 21:25) Appeara 08-26-2 CLEAR CLEAR complet nce of 017 ed Urine 21:25 Bilirub 08-26-2 NEGATIV NEG complet in 017 E ed [Presen 21:25 ce] in Urine by Test strip Erythro 08-26-2 NEGATIV NEG complet cytes 017 E ed [Presen 21:25 ce] in Urine Color 08-26-2 YELLOW YELLOW complet of 017 ed Urine 21:25 Ketones 08-26-2 NEGATIV NEG complet 017 E ed [Presen 21:25 ce] in Urine by Automat ed test strip Mucus 17-2 NEGATIV NEG complet [Presen 017 E ed ce] in 21:25 Urine sedimen t by Light microsc opy Nitrite -17-2 NEGATIV NEG complet 017 E ed [Presen 21:25 ce] in Urine by Test strip Urobili -17-2 0.2 NEG complet nogen 017 ed [Presen 21:25 ce] in Urine by Test strip Drugs identified in Urine by Screen method (08-02-2016 10:10) Ampheta NEGATIV <1000 complet mine 017 E ed [Presen 10:10 ce] in Urine by Screen method 11-Hydr 0524-2 NEGATIV <50 complet oxy 017 E ed delta-9 10:10 tetrahy drocann abinol [Presen ce] in Unspeci fied specime n Urinalysis dipstick W Reflex Microscopic panel in Urine (07-26-2016 20:47) Bacteri --2 TRACE O complet a 017 ed [Presen 20:47 ce] in Urine sedimen t by Light microsc opy Casts 17-2 OCC NONE complet [Presen 017 ed ce] in 20:47 Urine sedimen t by Light microsc opy Erythro -17-2 5-10 0 complet cytes 017 ed [Presen 20:47 ce] in Urine sedimen t by Light microsc opy Epithel 07-26-2 3-5 0#/hp complet ial 017 f - ed cells.s 20:47 5#/hp quamous f [Presen ce] in Urine sedimen t by Microsc opy high power field Urinalysis dipstick W Reflex Microscopic panel in Urine (07-26-2016 20:47) Appeara 07-26-2 CLEAR CLEAR complet nce of 017 ed Urine 20:47 Bilirub 07-26-2 NEGATIV NEG complet in 017 E ed [Presen 20:47 ce] in Urine by Test strip Erythro 07-26-2 3+ NEG Abnorma complet cytes 017 l ed [Presen 20:47 ce] in Urine Color 07-26-2 YELLOW YELLOW complet of 017 ed Urine 20:47 Ketones 17-2 NEGATIV NEG complet 017 E ed [Presen 20:47 ce] in Urine by Automat ed test strip Mucus -17-2 TRACE NEG Abnorma complet [Presen 017 l ed ce] in 20:47 Urine sedimen t by Light microsc opy Nitrite -17-2 NEGATIV NEG complet 017 E ed [Presen 20:47 ce] in Urine by Test strip Urobili -17-2 0.2 NEG complet nogen 017 ed [Presen [...] complet Auto 013 .5 ed 20:00 Platele 12-2 297 142-424 complet t Bld 013 K/mm3 ed Ql 20:00 Manual MEAN 02-14-2 7.5 fl 7.4-10. complet PLATELE 013 4 ed T 20:00 VOLUME Granulo 02-14-2 84.1 % 37.0-80 complet cytes 013 .0 ed Fr Bld 20:00 Auto LYMPH % 02-14-2 11.7 % 10-50.0 complet 013 ed 20:00 Monocyt 02-14-2 3.2 % 1.7-9.3 complet es Fr 013 ed Bld 20:00 Auto Eosinop 06-2 0.8 % 0.1-12. complet hil Fr 013 0 ed Bld 20:00 Auto Basophi 02-14-2 0.2 % 0.1-2.0 complet ls Fr 013 ed Bld 20:00 Auto Granulo 02-14-2 6.3 1.8-7.8 complet cytes # 013 K/mm3 ed Bld 20:00 Auto Lymphoc 02-14-2 0.9 0.7-4.5 complet ytes Fr 013 K/mm3 ed Bld 20:00 Auto Monocyt 06-2 0.2 0.1-1.0 complet es # 013 K/mm3 ed Bld 20:00 Auto Eosinop 06-2 0.1 0.0-0.4 complet hil # 013 K/mm3 ed Bld 20:00 Auto Basophi 06-2 0.0 0-0.2 complet ls # 013 K/MM3 ed Bld 20:00 Auto Encounters Encounter Start End Date Code Location Performer Type Date Emergency ROMEL Austin MD (ER) 3 09:02 3 10:07 [facility] Emergency ROMEL Jose MD (ER) 3 20:03 3 22:28 [facility] Emergency ROMEL Jose MD (ER) 3 10:30 3 10:31 [facility] Emergency ROMEL Jose MD (ER) 3 13:08 3 13:36 [facility]
--- OUTSIDE RECORDS SUMMARY | 2017-02-04 15:51 | External Medical Summary Rpt | CCD ---
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99 079.99 02-14-2013 [place] VIRAL [facility] INFECTION Hospital NOS 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, NOT SPCF ACUTE OR CHRONIC 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 CALCULUS OF KIDNEY N23 UNSPECIFIED RENAL COLIC N39.0 URINARY TRACT INFECTION, SITE NOT SPECIFIED R10.9 UNSPECIFIED ABDOMINAL PAIN R31.9 HEMATURIA, UNSPECIFIED Z79.899 OTHER PENITENTIARY (CURRENT) DRUG THERAPY Allergies, Adverse Reactions, Alerts [...] ti ve 32 5 MG -5 MG MS 00 12 0 No OM 64 -0 ET 11 6- Lo QUIROZ 49 20 ng ZI 53 13 er NE 5 Ac 25 ti ve MG /M L AM PU L AC 00 12 0 No YC 09 -0 LO 38 6- Lo 94 20 ng R 30 13 er 40 1 0 Ac MG ti ve TA BL ET MS 00 12 0 No ED 05 -0 NI 40 6- Lo SO 01 20 ng NE 82 13 er 0 20 Ac ti MG ve TA BL ET MS 51 12 0 No OM 07 -0 [...] ng CE 42 13 er TA 1 [place] Ac N- ti CA ve FF 50 [...] blood 12:13 platele t mean volume augustina Chambers % = 5.9 % 1.7-9.3 complet 017 [...] SQUARE METERS Comment: If this patient is -[place], then multiply the Comment: result by 1.210. [...] blood 06:16 platele t mean volume augustina Chambers % = 8.3 % 1.7-9.3 complet 017 [...] SQUARE METERS Comment: If this patient is -[place], then multiply the Comment: result by 1.210. [...] blood 20:54 platele t mean volume augustina Chambers % = 7.0 % 1.7-9.3 complet 017 [...] SQUARE METERS Comment: If this patient is -[place], then multiply the Comment: result by 1.210. [...] mass ra Urine culture (01-19-2017 20:54) Urine [id number] complet culture 017 1 ed 20:54 Staphyl [...] Austin MD (ER) 3 09:02 3 10:07 [facility] Emergency ROMEL Jose MD (ER) 3 20:03 3 22:[address] [facility] Emergency ROMEL Jose MD (ER) 3 10:30 3 10:[address] [facility] Emergency ROMEL Jose MD (ER) 3 13:08 3 13:[address] [facility]
--- OUTSIDE RECORDS SUMMARY | 2017-02-04 15:52 | External Medical Summary Rpt | CCD ---
Author Author , ASAD KAMARA Address Unknown Phone [email or web address] Immunization Name Date Rout CVX Reac Dose [...]
--- OUTSIDE RECORDS SUMMARY | 2017-02-04 15:52 | External Medical Summary Rpt | CCD ---
Author Author , ASAD KAMARA Address Unknown Phone [email or web address] Immunization Name Date Rout CVX Reac Dose [...]
[2017-02-04 15:54] LABS: LYMPH # 1.5 K/mm3 (0.7-4.5); LYMPH % 26.2 % (10-50.0)
--- OUTSIDE RECORDS SUMMARY | 2017-02-04 15:56 | External Medical Summary Rpt ---
Author Author STEFANOPRABHAKAR Leonard, [employer] Organization [employer] Address Unknown Phone Unavailable Results CBC W Auto Differential panel in Blood Observa Value Referen Units Interpr Notes Date tion ce etation Range Basophils 0 - 0.2 K/MM3 Normal No Jan 22 inform2016 [#/volume on in 12:13 PM ] in source Blood by data Automated count Basophils 0.1 - 2.0 % Normal No Jan 222016 leukocyte on in 12:13 PM s in source Blood by data Automated count Eosinophi 0.0 - 0.4 K/mm3 Normal No Jan 22 ls informati 2016 [#/volume on in 12:13 PM ] in source Blood by data Automated count Eosinophi 0.1 - % Normal No Jan 22 ls/100 12.0 inform2016 leukocyte on in 12:13 PM s in source Blood by data Automated count Granulocy 1.8 - 7.8 K/mm3 Normal No Jan 22 nuno 2016 [#/volume on in 12:13 PM ] in source Blood by data Automated count Granulocy 37.0 - % Normal No Jan 22 nuno/100 80.0 2016 leukocyte on in 12:13 PM s in source Blood by data Automated count Hematocri 37.0 - % Low Jan 22 t [Volume 47.0 ati 2016 on in 12:13 PM Fraction] source of Blood data Hemoglobi 12.2 - g/dL Low No Jan 22 n 16.2 2016 [Mass/vol on in 12:13 PM ume] in source Blood data Lymphocyt 0.7 - 4.5 K/mm3 Normal No Jan 22 es 2016 [#/volume on in 12:13 PM ] in source Unspecifi data ed specimen by Automated count Lymphocyt 10 - 50.0 % Normal No Jan 22 es inform2016 [#/volume on in 12:13 PM ] in source Unspecifi data ed specimen by Automated count Erythrocy 27 - 31.2 pg Normal No Jan 22 te mean 2016 corpuscul on in 12:13 PM ar source hemoglobi data n [Entitic mass] Erythrocy 31.8 - g/dl Normal No Jan 22 te mean 35.4 2016 corpuscul on in 12:13 PM ar source hemoglobi data n concentra tion [Mass/vol ume] by Automated count Erythrocy 82.2 - fl Normal No Jan 22 te mean 97.8 2016 corpuscul on in 12:13 PM ar volume source [Entitic data volume] by Automated count Monocytes 0.1 - 1.0 K/mm3 Normal No Jan 22 inform2016 [#/volume on in 12:13 PM ] in source Blood by data Automated count Monocytes 1.7 - 9.3 % Normal No Jan 22 /100 2016 leukocyte on in 12:13 PM s in source Blood by data Automated count Platelet 7.4 - fl Low No Jan 22 mean 10.4 2016 volume on in 12:13 PM [Entitic source volume] data in Blood by Automated count Platelets 142 - 424 K/mm3 Normal No Jan 22 inform2016 [#/volume on in 12:13 PM ] in source Blood data Erythrocy 4.2 - 5.4 M/mm3 Low No Jan 22 nuno 2016 [#/volume on in 12:13 PM ] in source Amniotic data fluid Erythrocy 11.5 - % Normal No Jan 22 te 17.5 2016 distribut on in 12:13 PM ion width source [Entitic data volume] by Automated count Leukocyte 4.8 - K/MM3 Low No Jan 22 s 10.8 2016 [#/volume on in 12:13 PM ] in source Blood data Basic metabolic panel in Blood Observa Value Referen Units Interpr Notes Date tion ce etation Range Urea 7 - 18 mg/dL No No Jan 22 nitrogen informati 2016 [Mass/vol on in on in ume] in source source Serum or data data Plasma Calcium 8.5 - mg/dL Normal No Jan 22 [Mass/vol 10.1 2016 ume] in on in Serum or source Plasma data Chloride 98 - 107 mmoL/L Normal No Jan 22 [Moles/vo 2016 lume] in on in Serum or source Plasma data Carbon 21.0 - mmoL/L Normal No Jan 22 dioxide, 32.0 2016 total on in [Moles/vo source lume] in data Serum or Plasma Creatinin 0.55 - mg/dL Normal No Jan 22 e 1.02 informati 2017 [Mass/vol on in ume] in source Serum or data Plasma Creatinin 50 - 200 ML/MIN Normal No Jan 22 e renal informati 2017 clearance on in source predicted data by Cockcroft -Gault formula Estimated 59- ML/MIN No REFERENCE Jan 22 informati RANGE: 2017 glomerula on in >60 r source ML/MIN/1. filtratio data 73 SQUARE n rate METERSIf (GF this patient is -A merican, then multiply theresult by 1.210. Glucose 74 - 106 mg/dL Normal No Jan 22 [Mass/vol informati 2016 ume] in on in Serum or source Plasma data Potassium 3.5 - 5.1 mmoL/L Normal No Jan 22 informati 2016 [Moles/vo on in lume] in source Serum or data Plasma Sodium 136 - 145 mmoL/L Normal No Jan 22 [Moles/vo informati 2016 lume] in on in Serum or source Plasma data Basic metabolic panel in Blood Observa Value Referen Units Interpr Notes Date tion ce etation Range Urea 7 - 18 mg/dL Normal No Jan 20 nitrogen informati 2016 6:16 [Mass/vol on in AM ume] in source Serum or data Plasma Calcium 8.5 - mg/dL Low No Jan 20 [Mass/vol 10.1 informati 2016 6:16 ume] in on in AM Serum or source Plasma data Chloride 98 - 107 mmoL/L Normal No Jan 20 [Moles/vo informati 2016 6:16 lume] in on in AM Serum or source Plasma data Carbon 21.0 - mmoL/L Normal No Jan 20 dioxide, 32.0 informati 2017 6:16 total on in AM [Moles/vo source lume] in data Serum or Plasma Creatinin 0.55 - mg/dL Normal No Jan 20 e 1.02 informati 2017 6:16 [Mass/vol on in AM ume] in source Serum or data Plasma Creatinin 50 - 200 ML/MIN Normal No Jan 20 e renal informati 2017 6:16 clearance on in AM source predicted data by Cockcroft -Gault formula Estimated 59- ML/MIN No REFERENCE Jan 20 informati RANGE: 2017 6:16 glomerula on in >60 AM r source ML/MIN/1. filtratio data 73 SQUARE n rate METERSIf (GF this patient is -A merican, then multiply theresult by 1.210. Glucose 74 - 106 mg/dL Normal No Jan 20 [Mass/vol informati 2016 6:16 ume] in on in AM Serum or source Plasma data Potassium 3.5 - 5.1 mmoL/L Normal Jan 20 informati 2016 6:16 [Moles/vo on in AM lume] in source Serum or data Plasma Sodium 136 - 145 mmoL/L Normal No Jan 20 [Moles/vo informati 2016 6:16 lume] in on in AM Serum or source Plasma data CBC W Auto Differential panel in Blood Observa Value Referen Units Interpr Notes Date tion ce etation Range Basophils 0 - 0.2 K/MM3 Normal No Jan 20 informati 2016 6:16 [#/volume on in AM ] in source Blood by data Automated count Basophils 0.1 - 2.0 % Normal No Jan 20 informati 2016 6:16 leukocyte on in AM s in source Blood by data Automated count Eosinophi 0.0 - 0.4 K/mm3 Normal No Jan 20 ls informati 2016 6:16 [#/volume on in AM ] in source Blood by data Automated count Eosinophi 0.1 - % Normal Jan 20 ls/100 12.0 informati 2016 6:16 leukocyte on in AM s in source Blood by data Automated count Granulocy 1.8 - 7.8 K/mm3 Normal No Jan 20 nuno informati 2016 6:16 [#/volume on in AM ] in source Blood by data Automated count Granulocy 37.0 - % Normal Jan 20 nuno/100 80.0 informati 2016 6:16 leukocyte on in AM s in source Blood by data Automated count Hematocri 37.0 - % Low No Jan 20 t [Volume 47.0 informati 2017 6:16 on in AM Fraction] source of Blood data Hemoglobi 12.2 - g/dL Low No Jan 20 n 16.2 informati 2016 6:16 [Mass/vol on in AM ume] in source Blood data Lymphocyt 0.7 - 4.5 K/mm3 Normal No Jan 20 es informati 2016 6:16 [#/volume on in AM ] in source Unspecifi data ed specimen by Automated count Lymphocyt 10 - 50.0 % Normal No Jan 20 es informati 2016 6:16 [#/volume on in AM ] in source Unspecifi data ed specimen by Automated count Erythrocy 27 - 31.2 pg Normal No Jan 20 te mean informati 2016 6:16 corpuscul on in AM ar source hemoglobi data n [Entitic mass] Erythrocy 31.8 - g/dl Normal No Jan 20 te mean 35.4 informati 2016 6:16 corpuscul on in AM ar source hemoglobi data n concentra tion [Mass/vol ume] by Automated count Erythrocy 82.2 - fl Normal No Jan 20 te mean 97.8 informati 2016 6:16 corpuscul on in AM ar volume source [Entitic data volume] by Automated count Monocytes 0.1 - 1.0 K/mm3 Normal No Jan 20 informati 2016 6:16 [#/volume on in AM ] in source Blood by data Automated count Monocytes 1.7 - 9.3 % Normal No Jan 20 /100 informati 2017 6:16 leukocyte on in AM s in source Blood by data Automated count Platelet 7.4 - fl Low No Jan 20 mean 10.4 informati 2017 6:16 volume on in AM [Entitic source volume] data in Blood by Automated count Platelets 142 - 424 K/mm3 Normal No Jan 20 informati 2017 6:16 [#/volume on in AM ] in source Blood data Erythrocy 4.2 - 5.4 M/mm3 Low No Jan 20 nuno informati 2016 6:16 [#/volume on in AM ] in source Amniotic data fluid Erythrocy 11.5 - % Normal Jan 20 te 17.5 informati 2016 6:16 distribut on in AM ion width source [Entitic data volume] by Automated count Leukocyte 4.8 - K/MM3 Low No Jan 20 s 10.8 informati 2016 6:16 [#/volume on in AM ] in source Blood data Urinalysis dipstick W Reflex Microscopic panel in Urine Observa Value Referen Units Interpr Notes Date tion ce etation Range Appeara SL CLEAR No No No Jan 19 nce of CLOUDY informa informa informa 2016 Urine tion in tion in tion in 8:54 PM source source source data data data Bacteri 3+ O No No Jan 19 a informa informa informa 2017 [Presen tion in tion in tion in 8:54 PM ce] in source source source Urine data data data sedimen t by Light microsc opy Bilirub NEGATIV NEG No No No Jan 10 in E informa informa informa 2016 [Presen tion in tion in tion in 8:54 PM ce] in source source source Urine data data data by Test strip Erythro 3+ NEG No Abnorma No Jan 10 cytes informa l informa 2016 [Presen tion in tion in 8:54 PM ce] in source source Urine data data Calcium 3+ NONE #/hpf No No Jan 10 informa informa 2017 oxalate tion in tion in 8:54 PM source source crystal data data s [Presen ce] in Urine sedimen t by Light microsc opy Color DK YELLOW No No No Jan 10 of YELLOW informa informa informa 2017 Urine tion in tion in tion in 8:54 PM source source source data data data Glucose NEG No No No Jan 10 [Mass/vol informati informati informati 2017 8:54 ume] in on in on in on in PM Urine by source source source Test data data data strip Ketones TRACE NEG mg/dL Abnorma No Jan 10 l informa 2016 [Presen tion in 8:54 PM ce] in source Urine data by Automat ed test strip Mucus TRACE NEG No Abnorma No Jan 10 [Presen informa l inform2016 ce] in tion in tion in 8:54 PM Urine source source sedimen data data t by Light microsc opy Nitrite POSITIV NEG No Abnorma No Jan 10 E informa l inform2016 [Presen tion in tion in 8:54 PM ce] in source source Urine data data by Test strip pH of 5.0 - 8.5 No Normal No Nov 10 Urine informati informati 2017 8:54 on in on in PM source source data data Protein NEG mg/dL High No Jan 10 [Mass/vol informati 2017 8:54 ume] in on in PM Urine by source Automated data test strip Erythro 3-5 0 rbc/hpf No No Nov 10 cytes informa informa 2017 [Presen tion in tion in 8:54 PM ce] in source source Urine data data sedimen t by Light microsc opy Specific 1.005 - No Normal No Jan 10 gravity 1.030 informati informati 2017 8:54 of Urine on in on in PM source source data data Epithel 10-20 0 - 5 #/hpf No No Jan 19 ial informa informa 2017 cells.s tion in tion in 8:54 PM quamous source source data data [Presen ce] in Urine sedimen t by Microsc opy high power field Urobili 0.2 NEG E.U./dL No No Jan 19 nogen informa informa 2016 [Presen tion in tion in 8:54 PM ce] in source source Urine data data by Test strip Leukocy [10 O wbc/hpf No No Jan 10 nuno wbc/hpf informa informa 2016 [#/volu ; 20 tion in tion in 8:54 PM me] in wbc/hpf source source Urine ] data data Urinalysis dipstick W Reflex Microscopic panel in Urine Observa Value Referen Units Interpr Notes Date tion ce etation Range Appeara SL CLEAR No No No Jan 19 nce of CLOUDY informa informa informa 2017 Urine tion in tion in tion in 8:54 PM source source source data data data Bilirub NEGATIV NEG No No No Jan 19 in E informa informa informa 2016 [Presen tion in tion in tion in 8:54 PM ce] in source source source Urine data data data by Test strip Erythro 3+ NEG No Abnorma No Jan 10 cytes informa l informa 2016 [Presen tion in tion in 8:54 PM ce] in source source Urine data data Color DK YELLOW No No No Jan 19 of YELLOW informa informa informa 2017 Urine tion in tion in tion in 8:54 PM source source source data data data Glucose NEG No No No Jan 10 [Mass/vol informati informati informati 2017 8:54 ume] in on in on in on in PM Urine by source source source Test data data data strip Ketones TRACE NEG mg/dL Abnorma No Jan 10 l informa 2016 [Presen tion in 8:54 PM ce] in source Urine data by Automat ed test strip Mucus TRACE NEG No Abnorma No Jan 10 [Presen informa l informa 2016 ce] in tion in tion in 8:54 PM Urine source source sedimen data data t by Light microsc opy Nitrite POSITIV NEG No Abnorma No Jan 10 E informa l informa 2016 [Presen tion in tion in 8:54 PM ce] in source source Urine data data by Test strip pH of 5.0 - 8.5 No Normal No Nov 10 Urine informati informati 2017 8:54 on in on in PM source source data data Protein NEG mg/dL High No Nov 10 [Mass/vol 2017 8:54 ume] in on in PM Urine by source Automated data test strip Specific 1.005 - No Normal No Jan 10 gravity 1.030 informati informati 2017 8:54 of Urine on in on in PM source source data data Urobili 0.2 NEG E.U./dL No No Jan 10 nogen informa informa 2016 [Presen tion in tion in 8:54 PM ce] in source source Urine data data by Test strip CBC W Auto Differential panel in Blood Observa Value Referen Units Interpr Notes Date tion ce etation Range Basophils 0 - 0.2 K/MM3 Normal No Nov 10 informati 2017 8:54 [#/volume on in PM ] in source Blood by data Automated count Basophils 0.1 - 2.0 % Normal No Nov 10 /100 informati 2017 8:54 leukocyte on in PM s in source Blood by data Automated count Eosinophi 0.0 - 0.4 K/mm3 Normal No Nov 10 ls informati 2016 8:54 [#/volume on in PM ] in source Blood by data Automated count Eosinophi 0.1 - % Normal No Nov 10 ls/100 12.0 informati 2017 8:54 leukocyte on in PM s in source Blood by data Automated count Granulocy 1.8 - 7.8 K/mm3 Normal No Nov 10 nuno informati 2017 8:54 [#/volume on in PM ] in source Blood by data Automated count Granulocy 37.0 - % Normal No Nov 10 nuno/100 80.0 informati 2017 8:54 leukocyte on in PM s in source Blood by data Automated count Hematocri 37.0 - % Low No Jan 10 t [Volume 47.0 informati 2017 8:54 on in PM Fraction] source of Blood data Hemoglobi 12.2 - g/dL Low No Nov 10 n 16.2 informati 2016 8:54 [Mass/vol on in PM ume] in source Blood data Lymphocyt 0.7 - 4.5 K/mm3 Normal No Jan 19 es informati 2016 8:54 [#/volume on in PM ] in source Unspecifi data ed specimen by Automated count Lymphocyt 10 - 50.0 % Normal No Jan 19 es inform2016 8:54 [#/volume on in PM ] in source Unspecifi data ed specimen by Automated count Erythrocy 27 - 31.2 pg Normal No Jan 19 te mean informati 2016 8:54 corpuscul on in PM ar source hemoglobi data n [Entitic mass] Erythrocy 31.8 - g/dl Normal No Jan 19 te mean 35.4 informati 2016 8:54 corpuscul on in PM ar source hemoglobi data n concentra tion [Mass/vol ume] by Automated count Erythrocy 82.2 - fl Normal No Jan 19 te mean 97.8 informati 2016 8:54 corpuscul on in PM ar volume source [Entitic data volume] by Automated count Monocytes 0.1 - 1.0 K/mm3 Normal No Jan 19 informati 2016 8:54 [#/volume on in PM ] in source Blood by data Automated count Monocytes 1.7 - 9.3 % Normal No Jan 19 informati 2016 8:54 leukocyte on in PM s in source Blood by data Automated count Platelet 7.4 - fl Low No Jan 19 mean 10.4 informati 2017 8:54 volume on in PM [Entitic source volume] data in Blood by Automated count Platelets 142 - 424 K/mm3 Normal No Jan 192016 8:54 [#/volume on in PM ] in source Blood data Erythrocy 4.2 - 5.4 M/mm3 Low No Jan 19 nuno informati 2016 8:54 [#/volume on in PM ] in source Amniotic data fluid Erythrocy 11.5 - % Normal No Jan 19 te 17.5 informati 2016 8:54 distribut on in PM ion width source [Entitic data volume] by Automated count Leukocyte 4.8 - K/MM3 Low No Jan 19 s 10.8 informati 2016 8:54 [#/volume on in PM ] in source Blood data Comprehensive metabolic 2000 panel in Serum or Plasma Observa Value Referen Units Interpr Notes Date tion ce etation Range Albumin/G 1.1 - 1.8 No Normal No Jan 19 lobulin informati informati 2016 8:54 [Mass on in on in PM ratio] in source source Serum or data data Plasma Albumin 3.4 - 5.0 gm/dL Normal No Jan 19 [Mass/vol informati 2016 8:54 ume] in on in PM Serum or source Plasma data Alkaline 46 - 116 U/L Normal No Jan 19 phosphata informati 2016 8:54 se on in PM [Enzymati source c data activity/ volume] in Serum or Plasma Bilirubin 0.2 - 1.0 mg/dL Normal No Jan 19 .total informati 2016 8:54 [Mass/vol on in PM ume] in source Serum or data Plasma Urea 7 - 18 mg/dL Normal No Jan 19 nitrogen informati 2016 8:54 [Mass/vol on in PM ume] in source Serum or data Plasma Calcium 8.5 - mg/dL Normal No Jan 19 [Mass/vol 10.1 informati 2016 8:54 ume] in on in PM Serum or source Plasma data Chloride 98 - 107 mmoL/L Normal No Jan 19 [Moles/vo informati 2016 8:54 lume] in on in PM Serum or source Plasma data Carbon 21.0 - mmoL/L Normal No Jan 19 dioxide, 32.0 informati 2017 8:54 total on in PM [Moles/vo source lume] in data Serum or Plasma Creatinin 0.55 - mg/dL Normal No Jan 19 e 1.02 informati 2016 8:54 [Mass/vol on in PM ume] in source Serum or data Plasma Creatinin 50 - 200 ML/MIN Normal No Jan 19 e renal informati 2016 8:54 clearance on in PM source predicted data by Cockcroft -Gault formula Estimated 59- ML/MIN Low REFERENCE Jan 19 RANGE: 2016 8:54 glomerula >60 PM r ML/MIN/1. filtratio 73 SQUARE n rate METERSIf (GF this patient is -A merican, then multiply theresult by 1.210. Globulin 1.3 - 3.2 gm/dL Normal No Jan 19 [Mass/vol informati 2016 8:54 ume] in on in PM Serum source data Glucose 74 - 106 mg/dL Normal No Jan 19 [Mass/vol informati 2016 8:54 ume] in on in PM Serum or source Plasma data Potassium 3.5 - 5.1 mmoL/L Normal No Jan 19 informati 2016 8:54 [Moles/vo on in PM lume] in source Serum or data Plasma Sodium 136 - 145 mmoL/L Normal No Jan 19 [Moles/vo informati 2016 8:54 lume] in on in PM Serum or source Plasma data Aspartate 15 - 37 U/L Normal No Jan 19 informati 2016 8:54 aminotran on in PM sferase source [Enzymati data c activity/ volume] in Serum or Plasma Alanine 12 - 78 U/L Normal No Jan 19 aminotran ati 2016 8:54 sferase on in PM [Enzymati source c data activity/ volume] in Serum or Plasma Protein 6.4 - 8.2 gm/dL Normal No Jan 19 [Mass/vol informati 2016 8:54 ume] in on in PM Serum or source Plasma data Drugs identified in Urine by Screen method Observa Value Referen Units Interpr Notes Date tion ce etation Range Positive urine drug screen samples are stored for 7 days. Contact the Lab if confirmation of positives is needed. Ampheta NEGATIV <1000 ng/mL No No Jan 19 mine E informa informa 2016 [Presen tion in tion in 10:10 ce] in source source AM Urine data data by Screen method Barbitura <200 ng/mL No No Jan 19 nuno informati informati 2016 [Mass/vol on in on in 10:10 AM ume] in source source Urine by data data Screen method Benzodiaz 200 ng/mL ng/mL High This is Jan 19 epine2016 [Mass/vol UNCONFIRM 10:10 AM ume] in ED Serum or result. Plasma by This Screen result is method for medicalpu rposes and/or treatment only. Cocaine <300 ng/g No No Jan 19 [Mass/vol informati informati 2016 ume] in on [...] No No Jan 19 dine informati informati 2016 [Mass/vol on in [...] No No Dec 20 nuno informati informati 2016 [Mass/vol on in on in 10:00 AM ume] in source source Urine by data data Screen method Benzodiaz 200 ng/mL ng/mL High This is Dec 20 epines an 2016 [Mass/vol UNCONFIRM 10:00 AM ume] in ED Serum or result. Plasma by This Screen result is method for medicalpu rposes and/or treatment only. Cocaine <300 ng/g No No Dec 20 [Mass/vol informati informati 2016 ume] in on in on in 10:00 AM Unspecifi source source ed data data specimen Methadone <300 ng/mL No No Dec 20 informati informati 2017 [Mass/vol on in on in 10:00 AM ume] in source source Unspecifi data data ed specimen Opiates <300 ng/mL High This is Dec 20 [Mass/vol an 2016 ume] in UNCONFIRM 10:00 AM Unspecifi ED [...] needed. Ampheta NEGATIV <1000 ng/mL No No Nov 14 mine E informa informa 2017 [Presen tion in tion in 10:40 ce] in source source AM Urine data data by Screen method Barbitura <200 ng/mL No No Nov 14 nuno informati informati 2017 [Mass/vol on in on in 10:40 AM ume] in source source Urine by data data Screen method Benzodiaz 200 ng/mL ng/mL High This is Nov 23 epines an 2017 [Mass/vol UNCONFIRM 10:40 AM ume] in ED Serum or result. Plasma by This Screen result is method for medicalpu rposes and/or treatment only. Cocaine <300 ng/g No No Sep 14 [Mass/vol informati informati 2016 ume] in on in on in 10:40 AM Unspecifi source source ed data data specimen Methadone <300 ng/mL No No Sep 14 informati informati 2017 [Mass/vol on in on in 10:40 AM ume] in source source Unspecifi data data ed specimen Opiates <300 ng/mL High This is Nov 23 [Mass/vol an 2017 ume] in UNCONFIRM 10:40 AM Unspecifi ED ed result. specimen This result is for medicalpu rposes and/or treatment only. Phencycli <25 ng/mL No No Sep 14 dine informati informati 2017 [Mass/vol on in [...] Ampheta NEGATIV <1000 ng/mL No No Oct 18 mine E informa informa 2017 [Presen tion in tion in 10:15 ce] in source source AM Urine data data by Screen method Barbitura <200 ng/mL No No Oct 27 nuno informati informati 2016 [Mass/vol on in [...] is Oct 27 oxy E l an 2017 delta-9 UNCONFI 10:15 RMED AM tetrahy result. [...] No Sep 29 mine E informa informa 2016 [Presen tion in tion in 10:05 ce] [...] Normal No Sep 02 [Mass/vol 10.1 informati 2016 6:35 ume] in on in AM Serum or source Plasma data Chloride 98 - 107 mmoL/L Normal No Sep 02 [Moles/vo informati 2017 6:35 lume] in on in AM Serum [...] Normal No Sep 02 e renal informati 2016 6:35 clearance on in AM source predicted data by Cockcroft -Gault formula Estimated 59- ML/MIN No REFERENCE Sep 02 informati RANGE: 2017 6:35 glomerula on in >60 AM r source ML/MIN/1. filtratio data 73 SQUARE n rate METERSIf (GF this patient is -A merican, then multiply theresult by 1.210. Glucose 74 - 106 mg/dL Normal No Sep 02 [Mass/vol informati 2017 6:35 ume] in on in [...] 0.1 - 2.0 % Normal No Aug 24 /100 informati 2017 6:35 leukocyte on in AM s in source Blood by data Automated count Eosinophi 0.0 - 0.4 K/mm3 Normal No Sep 02 ls informati 2016 6:35 [#/volume on in AM ] in source Blood by data Automated count Eosinophi 0.1 - % Normal No Sep 02 ls/100 12.0 informati 2016 6:35 leukocyte on in AM s in source Blood by data Automated count Granulocy 1.8 - 7.8 K/mm3 Normal No Sep 02 nuno informati 2017 6:35 [#/volume on in AM ] in source Blood by data Automated count Granulocy 37.0 - % Normal No Sep 02 nuno/100 80.0 informati 2017 6:35 leukocyte on in AM s in source Blood by data Automated count Hematocri 37.0 - % Low No Sep 02 t [Volume 47.0 informati 2017 6:35 on in AM Fraction] source of Blood data Hemoglobi 12.2 - g/dL Low No Sep 02 n 16.2 informati 2017 6:35 [Mass/vol on in AM ume] in source Blood data Lymphocyt 0.7 - 4.5 K/mm3 Normal No Sep 02 es informati 2017 6:35 [#/volume on in AM ] in source Unspecifi data ed specimen by Automated count Lymphocyt 10 - 50.0 % Normal No Sep 02 es informati 2017 6:35 [#/volume on in AM ] in source Unspecifi data ed specimen by Automated count Erythrocy 27 - 31.2 pg Normal No Sep 02 te mean informati 2017 6:35 corpuscul on in AM ar source hemoglobi data n [Entitic mass] Erythrocy 31.8 - g/dl Normal No Sep 02 te mean 35.4 informati 2017 6:35 corpuscul on in AM ar source [...] count Leukocyte 4.8 - K/MM3 No No Aug 24 s 10.8 informati informati 2017 6:35 [#/volume [...] U/L Normal No Sep 01 phosphata informati 2016 9:17 se on in PM [Enzymati source c data activity/ volume] in Serum or Plasma Bilirubin 0.2 - 1.0 mg/dL Normal No Sep 01 .total informati 2016 9:17 [Mass/vol on in PM ume] in source Serum or data Plasma Urea 7 - 18 mg/dL Normal No Sep 01 nitrogen informati 2016 9:17 [Mass/vol on in PM ume] in source Serum or data Plasma Calcium 8.5 - mg/dL Normal No Sep 01 [Mass/vol 10.1 informati 2016 9:17 ume] in on in PM Serum or source Plasma data Chloride 98 - 107 mmoL/L Normal No Sep 01 [Moles/vo informati 2016 9:17 lume] in on in PM Serum or source Plasma data Carbon 21.0 - mmoL/L Normal No Sep 01 dioxide, 32.0 informati 2017 9:17 total on in PM [Moles/vo source lume] in data Serum or Plasma Creatinin 0.55 - mg/dL High No Sep 01 e 1.02 informati 2016 9:17 [Mass/vol on in PM [...] gm/dL High No Sep 01 [Mass/vol informati 2016 9:17 ume] in on in PM Serum source data Glucose 74 - 106 mg/dL High No Sep 01 [Mass/vol informati 2016 9:17 ume] in on in PM Serum or source Plasma data Potassium 3.5 - 5.1 mmoL/L Normal No Sep 01 inform2016 9:17 [Moles/vo on in PM lume] in source Serum or data Plasma Sodium 136 - 145 mmoL/L Normal No Sep 01 [Moles/vo inform2016 9:17 lume] in on in PM Serum or source Plasma data Aspartate 15 - 37 U/L Normal No Sep 01 inform2016 9:17 aminotran on in PM sferase source [Enzymati data c activity/ volume] in Serum or Plasma Alanine 12 - 78 U/L Normal No Sep 01 aminotran informati 2016 9:17 sferase on in PM [Enzymati source c data activity/ volume] in Serum or Plasma Protein 6.4 - 8.2 gm/dL Normal Sep 01 [Mass/vol informati 2016 9:17 ume] [...] 0.4 K/mm3 Normal No Sep 01 ls ati 2016 9:17 [#/volume on in PM ] [...] Hematocri 37.0 - % Low No Sep 01 t [Volume 47.0 informati 2016 9:17 on in PM Fraction] source of Blood data Hemoglobi 12.2 - g/dL Low Sep 01 n 16.2 informati 2016 9:17 [Mass/vol on in PM ume] in source Blood data Lymphocyt 0.7 - 4.5 K/mm3 Low No Sep 01 es informati 2017 9:17 [#/volume on in PM ] in source Unspecifi data ed specimen by Automated count Lymphocyt 10 - 50.0 % Normal No Sep 01 es informati 2017 9:17 [#/volume on in PM ] in source Unspecifi data ed specimen by Automated count Erythrocy 27 - 31.2 pg Normal No Sep 01 te mean informati 2017 9:17 corpuscul on in PM ar source hemoglobi data n [Entitic mass] Erythrocy 31.8 - g/dl Normal No Sep 01 te mean 35.4 informati 2017 9:17 corpuscul on in PM ar source hemoglobi data n concentra tion [Mass/vol ume] by Automated count Erythrocy 82.2 - fl Normal No Sep 01 te mean 97.8 informati 2017 9:17 corpuscul on in PM ar volume source [Entitic data volume] by Automated count Monocytes 0.1 - 1.0 K/mm3 Normal No Sep 01 informati 2017 9:17 [#/volume on in PM ] in source Blood by data Automated count Monocytes 1.7 - 9.3 % Normal No Sep 01 /100 informati 2017 9:17 leukocyte on in [...] Normal No Sep 01 te 17.5 informati 2017 9:17 distribut on in PM ion width [...] No Sep 01 a informa informa informa 2016 [Presen tion [...] No Sep 01 cytes informa l informa 2017 [Presen tion in tion in 9:10 PM [...] No No Sep 01 cytes informa informa 2017 [Presen tion in tion in 9:10 PM [...] No No Sep 01 nogen informa informa 2017 [Presen tion in tion in 9:10 PM [...] No Sep 01 E informa l informa 2017 [Presen tion in tion in 9:10 PM ce] in source source Urine data data by Test strip pH of 5.0 - 8.5 No Normal No Sep 01 Urine informati informati 2016 9:10 on in on in PM source [...] No No Aug 30 [Mass/vol informati informati 2016 ume] in on in on in 10:45 [...] 0.4 K/mm3 Normal No Aug 30 ls 2016 [#/volume on in 12:20 AM ] in source Blood by data Automated count Eosinophi 0.1 - % Normal No Aug 30 ls/100 12.0 inform2016 leukocyte on in 12:20 AM s in source Blood by data Automated count Granulocy 1.8 - 7.8 K/mm3 Normal No Aug 30 nuno 2016 [#/volume on in 12:20 AM ] in source Blood by data Automated count Granulocy 37.0 - % Normal No Aug 30 nuno/100 80.0 2016 leukocyte on in 12:20 AM s in source Blood by data Automated count Hematocri 37.0 - % Low No Aug 30 t [Volume 47.0 2016 on in 12:20 AM Fraction] source [...] 50.0 % Normal No Aug 30 es 2016 [#/volume on in 12:20 AM ] in source Unspecifi data ed specimen by Automated count Erythrocy 27 - 31.2 pg Normal No Aug 30 te mean 2016 corpuscul on in 12:20 AM ar [...] 0.1 - 1.0 K/mm3 Normal No Aug 30 inform2016 [#/volume on [...] 5.0 gm/dL Normal No Aug 30 [Mass/vol informati 2017 ume] in on in 12:20 AM Serum or source Plasma data Alkaline 46 - 116 U/L Normal No Aug 30 phosphata informati 2017 se on in 12:20 AM [Enzymati source [...] Normal No Aug 30 e renal informati 2016 clearance on in 12:20 AM source predicted [...] 74 - 106 mg/dL Normal No Aug 21 [Mass/vol informati 2017 ume] in on in 12:20 AM Serum or source Plasma data Potassium 3.5 - 5.1 mmoL/L Low No Aug 30 informati 2017 [Moles/vo on in 12:20 AM lume] in [...] 78 U/L Normal No Aug 30 aminotran inform2016 sferase on in 12:20 AM [Enzymati source [...] mmol/L Normal No Aug 30 [Moles/vo informati 2016 lume] in on in 12:20 AM Blood source data CRP Observa Value Referen Units Interpr Notes Date tion ce etation Range CRP 0.0 - 0.9 MG/DL High No Aug 30 inform2016 on in 12:07 AM source data Urinalysis [...] No No Aug 30 E informa informa 2017 [Presen tion in tion in 12:07 ce] [...] No No Aug 30 cytes informa informa 2017 [Presen tion in tion in 12:07 ce] [...] No No Aug 30 nogen informa informa 2017 [Presen tion in tion in 12:07 ce] [...] No Aug 30 of informa informa informa 2016 Urine tion [...] No No Aug 26 s informati informati 2017 9:25 [#/volume on in on in PM [...] No Aug 26 [Mass/vol informati informati informati 2017 9:25 ume] in on [...] opy Nitrite NEGATIV NEG No No No Esdras 17 E informa informa informa 2016 [Presen tion in tion in tion in 9:25 PM ce] in source source source Urine data data data by Test strip pH of 5.0 - 8.5 No Normal No Aug 17 Urine informati informati 2016 9:25 on in on in PM source source data data Protein NEG mg/dL No No Aug 17 [Mass/vol informati informati 2016 9:25 ume] in [...] Normal No Aug 17 e 1.02 informati 2017 5:45 [Mass/vol on in AM ume] in source Serum or data Plasma Creatinin 50 - 200 ML/MIN Normal No Aug 26 e renal informati 2017 5:45 clearance on in AM source predicted data by Cockcroft -Gault formula Estimated 59- ML/MIN No REFERENCE Esdras 17 informati RANGE: 2017 5:45 glomerula on in >60 AM r source ML/MIN/1. filtratio data 73 SQUARE n rate METERSIf (GF this patient is -A merican, then multiply theresult by 1.210. Glucose 74 - 106 mg/dL Normal No Aug 26 [Mass/vol informati 2016 5:45 ume] in on in AM Serum or source Plasma data Potassium 3.5 - 5.1 mmoL/L Normal No Aug 26 inform2016 5:45 [Moles/vo on in AM lume] in [...] Erythrocy 27 - 31.2 pg Normal No Esdras 17 te mean inform2016 5:45 corpuscul on in AM ar source [...] - 1.0 K/mm3 Normal No Aug 17 informati 2016 5:45 [#/volume on in AM ] in source Blood by data Automated count Monocytes 1.7 - 9.3 % Normal No Aug 17 /100 informati 2016 5:45 leukocyte on in AM s in source Blood by data Automated count Platelet 7.4 - fl Low No Aug 26 mean 10.4 informati 2016 5:45 volume on [...] gm/dL Normal No Aug 16 [Mass/vol informati 2017 1:40 ume] in on in AM Serum or source Plasma data Alkaline 46 - 116 U/L Normal No Aug 16 phosphata informati 2017 1:40 se on in AM [Enzymati source c data activity/ volume] in Serum or Plasma Bilirubin 0.2 - 1.0 mg/dL Normal No Aug 16 .total informati 2017 1:40 [Mass/vol on in AM ume] in source Serum or data Plasma Urea 7 - 18 mg/dL Normal No Aug 25 nitrogen informati 2017 1:40 [Mass/vol on in AM ume] in source Serum or data Plasma Calcium 8.5 - mg/dL Normal No Aug 25 [Mass/vol 10.1 informati 2017 1:40 ume] in on in AM Serum or source Plasma data Chloride 98 - 107 mmoL/L Normal No Aug 25 [Moles/vo informati 2016 1:40 lume] in on in AM Serum or source Plasma data Carbon 21.0 - mmoL/L Normal No Aug 25 dioxide, 32.0 informati 2017 1:40 total on in AM [Moles/vo source lume] in data Serum or Plasma Creatinin 0.55 - mg/dL Normal No Aug 16 e 1.02 informati 2017 1:40 [Mass/vol on in AM ume] in source Serum or data Plasma Creatinin 50 - 200 ML/MIN Normal No Aug 16 e renal informati 2016 1:40 clearance on in AM source predicted data by Cockcroft -Gault formula Estimated 59- ML/MIN No REFERENCE Aug 25 informati RANGE: 2017 1:40 glomerula on in >60 AM r source ML/MIN/1. filtratio data 73 SQUARE n rate METERSIf (GF this patient is -A merican, then multiply theresult by 1.210. Globulin 1.3 - 3.2 gm/dL High No Aug 16 [Mass/vol informati 2017 1:40 ume] in on in AM Serum source data Glucose 74 - 106 mg/dL Normal No Aug 16 [Mass/vol informati 2017 1:40 ume] in on in AM Serum or source Plasma data Potassium 3.5 - 5.1 mmoL/L Low No Aug 16 informati 2017 1:40 [Moles/vo on in AM lume] in source Serum or data Plasma Sodium 136 - 145 mmoL/L High No Aug 25 [Moles/vo informati 2016 1:40 lume] in on in AM Serum or source Plasma data Aspartate 15 - 37 U/L Normal No Aug 25 inform2016 1:40 aminotran on in AM sferase source [Enzymati data c activity/ volume] in Serum or Plasma Alanine 12 - 78 U/L Normal No Aug 25 aminotran informati 2016 1:40 sferase on in AM [Enzymati source c data activity/ volume] in Serum or Plasma Protein 6.4 - 8.2 gm/dL Normal No Aug 25 [Mass/vol informati 2016 1:40 ume] in on [...] 0 - 0.2 K/MM3 Normal No Aug 25 inform2016 1:40 [#/volume on in AM ] in source Blood by data Automated count Basophils 0.1 - 2.0 % Normal No Aug 16 /100 informati 2016 1:40 leukocyte on in AM s in source Blood by data Automated count Eosinophi 0.0 - 0.4 K/mm3 Normal No Aug 16 ls informati 2016 1:40 [#/volume on in [...] Hematocri 37.0 - % Normal No Aug 25 t [Volume 47.0 informati 2016 1:40 on in AM Fraction] source of Blood data Hemoglobi 12.2 - g/dL Normal No Aug 25 n 16.2 informati 2016 1:40 [Mass/vol on in AM ume] in source Blood data Lymphocyt 0.7 - 4.5 K/mm3 Normal No Aug 16 es informati 2016 1:40 [#/volume on in AM ] in source Unspecifi data ed specimen by Automated count Lymphocyt 10 - 50.0 % Normal No Aug 16 es informati 2016 1:40 [#/volume on [...] Albumin/G 1.1 - 1.8 No Normal No Esdras 1 lobulin informati informati 2017 7:40 [Mass on in on in PM ratio] in source source Serum or data data Plasma Albumin 3.4 - 5.0 gm/dL Normal No Esdras 1 [Mass/vol informati 2017 [...] 5.1 mmoL/L Normal No Esdras 1 informati 2016 7:40 [Moles/vo on in PM lume] in source Serum or data Plasma Sodium 136 - 145 mmoL/L Normal No Esdras 1 [Moles/vo informati 2016 7:40 lume] in on in PM Serum or source Plasma data Aspartate 15 - 37 U/L Normal No Esdras 1 informati 2016 7:40 aminotran on in PM sferase source [...] % Normal No Esdras 1 /100 informati 2017 7:40 leukocyte on in PM s in [...] K/mm3 Normal No Esdras 1 nuno informati 2017 7:40 [#/volume on in PM ] in source Blood by data Automated count Granulocy 37.0 - % Normal No Esdras 1 nuno/100 80.0 informati 2016 7:40 leukocyte on in PM s in source Blood by data Automated count Hematocri 37.0 - % Normal No Esdras 1 t [Volume 47.0 informati 2016 7:40 on in PM Fraction] source of Blood data Hemoglobi 12.2 - g/dL No No Esdras 1 n 16.2 informati informati 2016 7:40 [Mass/vol on in on in PM ume] in source source Blood data data Lymphocyt 0.7 - 4.5 K/mm3 Normal No Esdras 1 es informati 2017 7:40 [#/volume on in PM ] in source Unspecifi data ed specimen by Automated count Lymphocyt 10 - 50.0 % Normal No Esdras 1 es informati 2017 7:40 [#/volume on in PM ] in source Unspecifi data ed specimen by Automated count Erythrocy 27 - 31.2 pg Normal No Aug 1 te mean informati 2016 7:40 corpuscul on [...] Monocytes 0.1 - 1.0 K/mm3 Normal No Esdras 1 informati 2016 7:40 [#/volume on in PM ] in source Blood by data Automated count Monocytes 1.7 - 9.3 % Normal No Esdras 1 /100 informati 2017 7:40 leukocyte on in PM s in source Blood by data Automated count Platelet 7.4 - fl Low No Aug 10 mean 10.4 informati 2017 7:40 volume on in PM [Entitic source volume] data in Blood by Automated count Platelets 142 - 424 K/mm3 No No Esdras 1 informati informati 2017 7:40 [#/volume on in on in PM ] in source source Blood data data Erythrocy 4.2 - 5.4 M/mm3 Normal No Esdras 1 nuno informati 2017 7:40 [#/volume on in PM ] in source Amniotic data fluid Erythrocy 11.5 - % Normal No Esdras 1 te 17.5 informati 2016 7:40 distribut on in PM ion width source [Entitic data volume] by Automated count Leukocyte 4.8 - K/MM3 Normal No Esdras 1 s 10.8 informati 2016 7:40 [#/volume [...] No August 02 mine E informa informa 2017 [Presen tion in tion in 10:10 ce] in source source AM Urine data data by Screen method Barbitura <200 ng/mL No No August 02 nuno informati informati 2016 [Mass/vol on in on in 10:10 AM ume] in source source Urine by data data Screen method Benzodiaz 200 ng/mL ng/mL High This is August 02 epines an 2016 [Mass/vol UNCONFIRM 10:10 AM [...] Normal No July 31 [Mass/vol 10.1 informati 2017 6:15 ume] in on in AM Serum or source Plasma data Chloride 98 - 107 mmoL/L Normal No July 31 [Moles/vo informati 2017 6:15 lume] in on in AM Serum [...] - 2.0 % Normal No July 31 / informati 2016 6:15 leukocyte on in AM [...] % Normal No July 31 /100 informati 2017 6:15 leukocyte on in AM s in source Blood by data Automated count Platelet 7.4 - fl Low July 31 mean 10.4 informati 2016 6:15 [...] Normal No July 31 te 17.5 informati 2017 6:15 distribut on in AM ion width [...] Observa Value Referen Units Interpr Notes Date ti ce etation Range Basophils 0 - 0.2 K/MM3 Normal No July 27 informati 2016 6:30 [#/volume on in AM ] in source Blood by data Automated count Basophils 0.1 - 2.0 % Normal No July 27 informati 2016 6:30 leukocyte on in AM [...] Erythrocy 82.2 - fl Normal No July 27 te mean 97.8 informati 2016 6:30 corpuscul on in AM ar volume source [Entitic data volume] by Automated count Monocytes 0.1 - 1.0 K/mm3 Normal No July 272016 6:30 [#/volume on in AM ] in source Blood by data Automated count Monocytes 1.7 - 9.3 % Normal No July 27 /100 ati 2016 6:30 leukocyte on in AM s in source Blood by data Automated count Platelet 7.4 - fl Low No July 27 mean 10.4 ati 2016 6:30 volume on in AM [Entitic source volume] data in Blood by Automated count Platelets 142 - 424 K/mm3 Normal No July 272016 6:30 [#/volume on in AM ] in source Blood data Erythrocy 4.2 - 5.4 M/mm3 Low No July 27 nuno informati 2016 6:30 [...] 20 mm/hr High No July 26 te informati 2016 8:47 sedimenta on in PM tion [...] Abnorma No July 26 cytes informa l inform2016 [Presen tion in tion in 8:47 PM ce] in source source Urine data data Color YELLOW YELLOW No No No July 26 of informa informa informa 2016 Urine tion in tion in tion in 8:47 PM source source source data data data Casts OCC NONE #/lpf No No July 26 [Presen informa informa 2016 ce] in tion in [...] No July 26 gravity 1.030 informati informati 2017 8:47 of Urine on in on in PM source source data data Epithel 3-5 0 - 5 #/hpf No No July 26 ial informa informa 2016 cells.s tion in tion in 8:47 PM quamous source source data data [Presen ce] in Urine sedimen t by Microsc opy high power field Urobili 0.2 NEG E.U./dL No No July 26 nogen informa informa 2017 [Presen tion in tion in 8:47 PM [...] Observa Value Referen Units Interpr Notes Date ti ce etation Range Basophils 0 - 0.2 [...] 7.8 K/mm3 Normal No July 26 nuno ati 2016 8:47 [#/volume on in PM ] [...] pg Normal No July 26 te mean inform2016 8:47 corpuscul on in PM ar source [...] 0.1 - 1.0 K/mm3 Normal No July 26 informati 2016 8:47 [#/volume on in PM ] in source Blood by data Automated count Monocytes 1.7 - 9.3 % Normal No July 26 /100 informati 2016 8:47 leukocyte on in PM [...] Erythrocy 11.5 - % Normal No July 26 te 17.5 informati 2016 8:47 [...] mmoL/L Normal No July 26 [Moles/vo informati 2017 8:47 lume] in on in PM Serum or source Plasma data Aspartate 15 - 37 U/L Normal AST JulyJuly 26 2017 8:47 aminotran SLIGHTLY PM sferase FALSELY [Enzymati [...] No July 26 of informa informa informa 2017 Urine [...] No July 24 e 1.02 informati informati 2017 6:05 [Mass/vol on in on in AM [...] - 5.1 mmoL/L Normal No July 24 informati 2016 6:05 [Moles/vo on in AM lume] in [...] - 9.3 % Normal No July 24 /100 informati 2017 6:05 leukocyte on in AM [...]
--- OUTSIDE RECORDS SUMMARY | 2017-02-04 15:56 | External Medical Summary Rpt ---
[...] Basophils 0.1 - 2.0 % Normal No Sedras 1 /100 informati 2017 7:40 leukocyte on [...]
[2017-02-04 16:05] LABS: HEMOGLOBIN 14.5 g/dL (12.2-16.2)
[2017-02-04 16:22] LABS: BUN 12 mg/dL (7-18)
[2017-02-04 16:24] LABS: GFR (ESTIMATED) 52 ML/MIN (59-)
--- NOTE | 2017-02-04 17:06 | Emergency Room Report ---
History of Present Illness Time Seen by [id number] Presenting Problem in Triage Pt arrived:Wheelchair Presenting Problem:PT STATES THAT SHE HAS BEEN NAUSEOUS/ VOMITING. HAS TO STAY PROPPED UP TO B E COMFORTABLE. STATES SHORT OF BREATH, PRESSURE IN MIDDLE OF CHEST. STATES PAIN WHEN GOING TO THE BATHROOM. WAS INPT BEFORE , WAS SENT HOME WITH ANTIBIOTICS. JUST NOT GETTING BETTER. 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 Y Clinical Suspician of Infection? Y Mental Status: 1 - Regular (Normal Baseline) Sepsis Risk:Low Sepsis Risk Have you (or family members/close friends) recently traveled outside the [place]? N If Yes, where/when: Have you had exposure to infectious disease within the past month? TB? Other? Specify: Source patient, RN notes reviewed Exam Limitations no limitations Comment Pt hospitalized here before for Renal Colic and comes in now with chest pain with SOA and feels like someone standing on chest ..no history of coronary disease in past but also complains of nausea and vomiting and feels like she is dry. Pt is not a good historian...she rambles from one complaint to another and one organ system to another Cardiac Chest Pain Chest pain indicative of cardiac Yes Timing/Duration 1-3 hours ALLERGIES Coded Allergies: Tetanus Vaccines and Toxoid (TETANUS VACCINES & TOXOID) (Severe, 09/01/16) butorphanol (Severe, 09/01/16) tolterodine (Severe, 09/01/16) amitriptyline (Mild, 09/01/16) gabapentin (Mild, 09/01/16) prochlorperazine (Mild, 09/01/16) ketorolac (From TORADOL) (09/01/16) Home Medications Active Scripts Phenazopyridine HCl (Pyridium) 200 MG PO TID #15 TAB Prov: 01/23/17 Reported Medications HYDROCODONE/ACETAMINOPHEN (Hydrocodon-Acetaminoph 7.5-325) 1 TAB PO Q4HP PRN PAIN #120 TAB Esomeprazole Magnesium (Nexium 40MG Cap) 40 MG PO DAILY Sumatriptan Succinate (Imitrex) 100 MG PO DAILYP PRN HEADACHE VENLAFAXINE HCL (Venlafaxine Hydrochloride) 0.5 TABLET PO BID Pentosan Polysulfate Sodium (Elmiron 100MG Capsule) 100 MG PO TID #90 CAPSULE Cyclobenzaprine Hcl 10 MG PO TID PRN MUSCLE SPASMS #90 TAB Alprazolam 0.5 MG PO BID #90 TAB CETIRIZINE HCL (Zyrtec) 10 MG PO DAILY PROMETHAZINE HCL (Phenergan 25MG Tab (Geq)) 25 MG PO BIDP PRN N/V #20 TAB Ibuprofen (Ibuprofen 800MG) 800 MG PO BID PRN PAIN/FEVER Pregabalin (Lyrica 75MG) 75 MG PO QHS #30 Zolpidem Tartrate (Zolpidem 10MG) 10 MG PO QHS #30 History Medical History General CAD? No Angina: Yes MT: No Hypertension? No Hyperlipidemia? No CHF? No DVT? No PE? No COPD? No Asthma? No Anemia? No GERD? Yes Gastric ulcers? No GI Bleed? No Hernia? Yes Thyroid Problems? No Hypothyroidism? No CVA? No Seizures? No Diabetes? No Renal Insuffiency? No End Stage Renal Disease? No UTI? Yes Stones? Yes BPH? No GB Disease: No Nephritic Syndrome? No Asplenia? No Hepatitis? No Sickle Cell Disease? No Arthritis? No Migraines? Yes Cataracts? No Glaucoma? No MRSA? Yes HIV? No TB? No Anxiety? No Depression? No Cancer? No More? 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 Hx LMP N/A Family History Family Hx Diabetes No CAD Yes Hypertension Yes Hyperlipidemia Yes Cancer Yes TB No Social History Smoking Hx Smoker: Never Smoker Tobacco: No Packs/day N/A Alcohol Alcohol: No Review of Systems All Other Systems Reviewed and Negative Constitutional see HPI Respiratory see HPI Cardiovascular see HPI Gastrointestinal see HPI Physical Exam Vital Signs Vital Signs Date Time Temp Pulse Resp B/P Pulse O2 O2 Flow FiO2 Ox Delivery Rate 02/04 1739 81 18 121/84 98 02/04 1538 99.1 100 18 116/84 100 General Appearance normal appearance, WD/WN, no apparent distress Respiratory Status No: respiratory distress. Lung Sounds bilateral: normal breath sounds. 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 No Results/Orders Laboratory Tests 02/04/17 173: Urine Color YELLOW, Urine Appearance TURBID, Urine pH 7.5, Ur Specific [place] 1.015, Urine Protein NEGATIVE, Urine Ketones NEGATIVE, Urine Blood NEGATIVE, Urine Nitrate NEGATIVE, Urine Bilirubin NEGATIVE, Urine Urobilinogen 0.2, Ur Leukocyte Esterase 2+ H, Urine WBC 5-10, Ur Squamous Epith Cells 5-10, Urine Bacteria 3+, Urine Mucus 2+, Urine Glucose NEGATIVE 02/04/17 1725: Lactic Acid 1.4 02/04/17 1535: Sodium 139, Potassium 3.8, Chloride 99, Carbon Dioxide 26, BUN 12, Creatinine 1.1 H, Estimated Creat Clear 71, Estimated GFR (MDRD) 52 L, Glucose 99, Calcium 10.2 H, Total Bilirubin 0.4, AST 48 H, ALT 75, Alkaline Phosphatase 111, Creatine Kinase 63, CK-MB (CK-2) Rel Index 0.8, CK and CKMB Interp < 0.5, Troponin I < 0.02, Total Protein 9.0 H, Albumin 5.0, Globulin 4.0 H, Albumin/ Globulin Ratio 1.3, WBC 5.6, RBC 4.98, Hgb 14.5, Hct 43.7, MCV 87.9, RDW 13.7, Plt Count 376, MPV 7.0 L, Gran % 65.8, Gran # 3.7, Lymphocytes % 26.2, Monocytes % 4.5, Eosinophils % 2.7, Basophils % 0.8, Lymphocytes # 1.5, Monocytes # 0.3, Eosinophils # 0.2, Basophils # 0.0, PUBS MCHC 33.5, MCH 29.4 Current Medication Orders Sig/Kayleigh Start time Last Medication Dose Route Stop Time Status Admin Sodium Chloride 10 ML PRN PRN 02/04 1545 AC IV 02/05 1545 Orders Procedure Date/time Status CULTURE, URINE 02/04 1735 Active URINALYSIS/COMPLETE 02/04 1713 Complete LACTIC ACID 02/04 1713 Complete ELECTROCARDIOGRAM REQUEST 02/04 1545 Active CHEST-PORTABLE 02/04 1545 Active IV SALINE LOCK 02/04 1545 Active CBC WITH AUTO DIFF 02/04 1545 Complete CARDIAC ENZYMES 02/04 1545 Complete CHEM 12 PROFILE 02/04 1545 Complete 12 LEAD EKG-BESSON (INITIAL) 02/04 UNK Active Departure Departure Time of Disposition 1840 Disposition DC Home or Self Care(routine) Clinical Impression Primary Impression: Viral gastroenteritis Condition STABLE Referrals Anne PRATT,Jone Lopez (Family): 3 Days-Call Office Patient Instructions DI for Viral Gastroenteritis -- Adult, Viral Gastroenteritis Additional Instructions Stay on clear liquids for next 24 to 48 hours and use medicines as directed. Discharge Counseling Counseled pt/family regarding diagnosis, test results, medications/RX, home care, follow up needs Prescriptions Current Visit Scripts ONDANSETRON HCL (Zofran 4MG Tab) 4 MG PO Q6HP PRN NAUSEA AND VOMITING #40 TAB Loperamide HCl (Imodium A-D) 2 MG PO DIRECTED #30 CAPSULE Take 2 tabs after next BM then 1 tab after each BM thereafter but no more than 6 tabs in 1 day ED Critical Care Critical Care No If Critical Care minutes are documented, the time involved in the performance of seperately reportable procedures was not counted toward critical care time documented. I directly delivered medical care to this critically ill and/or injured patient. Timely evaluation and treatment was necessary to address the significant organ system(s) dysfunction present in this patient. at 1844
[2017-02-04 17:44] LABS: URINE BILIRUBIN - DIPSTICK NEGATIVE (NEG); URINE BLOOD NEGATIVE (NEG)
[2017-02-04] MEDS ORDERED: ZOFRAN4 MG PO (18:44)
[2017-02-04] MEDS ORDERED: IMODIUM A-D2 M3 PO (18:44)
[2017-02-04 18:53] VITALS: BP 104/62
--- NOTE | 2017-02-04 22:45 | RADIOLOGY REPORT PS360 ---
CHEST-PORTABLE Ordering Physician: Vijaya Constantino MD Patient Age: 51 years: Female HISTORY: CHEST PAIN TECHNIQUE: AP portable upright chest COMPARISON :12/30/2015 portable chest August 2007 FINDINGS ] Was faintly clear with no active disease. Hyperexpansion most evident at the upper lung riley and apices suggesting developing COPD changes.. Small stable calcified granuloma seen at the periphery of the right upper lobe as well as a small similar area just lateral to the left suprahilar region. These are unchanged since prior studies dating back to 2007.surveillance system monitor leads are in place. Heart is normal in size mediastinal structures unremarkable. Chest wall unremarkable. IMPRESSION: Stable chest nothing definitely acute. Lungs clear.
--- NOTE | 2017-02-04 22:45 | RADIOLOGY REPORT PS360 ---
CHEST-PORTABLE Ordering Physician: Vijaya Constantino MD Patient Age: 51 years: Female HISTORY: CHEST PAIN TECHNIQUE: AP portable upright chest COMPARISON :12/30/2015 portable chest August 2007 FINDINGS ] Was faintly clear with no active disease. Hyperexpansion most evident at the upper lung riley and apices suggesting developing COPD changes.. Small stable calcified granuloma seen at the periphery of the right upper lobe as well as a small similar area just lateral to the left suprahilar region. 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 Heart is normal in size mediastinal structures unremarkable. Chest wall unremarkable. IMPRESSION: Stable chest nothing definitely acute. Lungs clear.
== END 2017-02-04 18:54 | disposition home or self-care (01) ==
LOC: ER 15:37
PROVIDERS: General Practice
DX: A08.4 Viral intestinal infection, unspecified (principal); K21.9 Gastro-esophageal reflux disease without esophagitis; Z88.6 Allergy status to analgesic agent; Z88.7 Allergy status to serum and vaccine

== ENCOUNTER → 2017-02-16 | Outpatient (CLI) | payer MEDICARE, MEDICAID ==
[~2017-02-16] MED LIST changes: +IMODIUM A-D2 M3 PO
[2017-02-16 16:12] LABS: AMPHETAMINES/METAMPHETAMINES NEGATIVE ng/mL (<1000)
== END ==
LOC: LAB 13:22
PROVIDERS: Emergency Medicine
DX: Z79.899 Other long term (current) drug therapy (principal)